=== PATIENT | male | born 1940 | race African-American/Black ===

== ENCOUNTER 2017-10-16 12:13 | Inpatient (IN) | payer MEDICARE, OTHER ==
[~2017-10-16] VITALS: Ht 167.6 cm; Wt 83.5 kg
[2017-10-16] MEDS ORDERED: SODIUM CHLORIDE 0.9% 1000ML 1,000 ML IV STA (12:44)
[2017-10-16] MEDS ORDERED: SODIUM CHLORIDE 0.9% 1000ML 500 ML IV STA (12:44)
[2017-10-16] MEDS ORDERED: FOLIC ACID 5 MG/ML VIAL IV ONE (12:45)
[2017-10-16 13:18] LABS: BASOPHILS % 0.2 % (0.0-1.0); EOSINOPHILS % 0.2 % (0.0-6.0); HEMATOCRIT 37.7 % (38.2-49.6); HEMOGLOBIN 12.4 g/dL (14.0-18.0); LYMPHOCYTES # (AUTO) 1.1 (1.0-3.2); MEAN CORPUSCULAR HEMOGLOBIN 29.4 pg (28-32); MEAN CORPUSCULAR HGB CONC 32.9 g/dL (31-35); MEAN CORPUSCULAR VOLUME 89.3 fL (81-99); MONOCYTES % 7.3 % (4.4-11.3); NEUTROPHILS # (AUTO) 11.8 (2.1-6.9); NEUTROPHILS % 83.5 % (38.7-80.0); PLATELET COUNT 173 x10e3/uL (140-360); RED BLOOD COUNT 4.22 x10e6/uL (4.3-5.7); RED CELL DISTRIBUTION WIDTH 15.6 % (11.7-14.4)
[2017-10-16 13:29] LABS: INR 1.3; PROTHROMBIN TIME 15.2 seconds (11.9-14.5)
[2017-10-16 13:30] LABS: PARTIAL THROMBOPLASTIN TIME 34.9 seconds (23.8-35.5)
[2017-10-16] MEDS ORDERED: DEXTROSE 50% SYRINGE 50 ML IV PRN (13:30)
[2017-10-16] MEDS ORDERED: ONDANSETRON HCL INJ 2 MG/ML VIAL IV PRN (13:30)
[2017-10-16] MEDS ORDERED: FAMOTIDINE 20 MG/2 ML VIAL IV SCH (13:30)
--- NOTE | 2017-10-16 13:34 | Diagnostic Imaging Report ---
PROCEDURE: A single AP view of the chest. COMPARISON: None available. INDICATIONS: WEAKNESS, LOSING BALANCE FINDINGS: Lines/tubes: None. Lungs: Limited by body habitus and low lung volumes. No definite focal consolidation. Mild left basilar subsegmental atelectasis. Pleura: There is no significant pleural effusion or pneumothorax. Heart and mediastinum: The heart and the mediastinum are unremarkable. Bones: No acute bony abnormality. Right humeral head anchor screw. IMPRESSION: Limited study as above. No definite focal consolidation. Mild left basilar subsegmental atelectasis. Dictated by: Jeffrey Pelaez M.D. on 10/16/2017 at 13:34 Electronically approved by: Jeffrey Pelaez M.D. on 10/16/2017 at 13:34
[2017-10-16 13:37] LABS: ALBUMIN/GLOBULIN RATIO 0.6 (0.8-2.0); ANION GAP 17.6 mmol/L (8-16); CREATININE, SERUM 2.59 mg/dL (0.72-1.25); MAGNESIUM 2.3 MG/DL (1.3-2.1); POTASSIUM 4.6 mmol/L (3.5-5.1)
[2017-10-16 13:54] LABS: CREATINE KINASE MB 0.5 ng/mL (0-5.0)
[2017-10-16 13:56] LABS: THYROID STIMULATING HORMONE 1.532 uIU/mL (0.350-4.940)
--- NOTE | 2017-10-16 14:30 | Diagnostic Imaging Report ---
Exam: Head CT without contrast History: Left-sided weakness Comparison studies: None Technique: Axial images were obtained from the skull base to the vertex. Coronal and sagittal images reconstructed from the axial data. Intravenous contrast: None Findings: Scalp: No abnormalities. Bones: No fractures, blastic or lytic lesions. Brain sulci: Mild to moderately prominent. Ventricles: Moderate compensatory dilatation. No hydrocephalus. Extra-axial spaces: No masses, no fluid collection. Parenchyma: No masses, acute hemorrhage, acute or chronic vascular insults. A few scattered and mildly confluent hypodensities in the supratentorial white matter are nonspecific but most compatible with chronic small vessel ischemic changes. Sellar/suprasellar region: No abnormalities. Craniocervical junction: Patent foramen magnum. No Chiari one malformation. Incidental findings: Atherosclerotic calcifications in the carotid siphons. IMPRESSION: 1. No acute intracranial abnormalities. Specifically, no mass, acute hemorrhage or acute cortical vascular insults. 2. Moderate generalized volume loss. 3. Moderate chronic microvascular ischemic changes. Signed by: Dr. Angelo Grier M.D. on 10/16/2017 2:26 PM
--- NOTE | 2017-10-16 14:43 | Diagnostic Imaging Report ---
Exam: Brain MRI without IV contrast History: Rule out CVA Comparison studies: Head CT of 10/16/2017 Technique: Sagittal and axial T2, axial and coronal T2 flair and axial T1, T2*GRE and DWI.. Intravenous contrast: None Findings: Scalp: Normal in signal . No masses . Bone marrow: Normal in signal intensity. Brain sulci: Mild to moderately prominent. Ventricles: Moderate compensatory dilatation. No hydrocephalus. Extra axial spaces: No mass, no fluid collection Parenchyma: New mass, acute hemorrhage or acute ischemia. Confluent T2 FLAIR hyperintense signal changes in the supratentorial white matter and T2 hyperintense signal changes in the tere are nonspecific but most compatible with chronic small vessel ischemic changes. Suprasellar region: No abnormalities. Craniocervical junction: Patent foramen magnum. No Chiari malformation . Vessels: Normal flow-voids in the arteries and sinuses. IMPRESSION: 1. No acute abnormalities. Specifically, no acute ischemia. 2. Moderate generalized volume loss. 3. Moderate chronic microvascular ischemic changes. Signed by: Dr. Angelo Grier M.D. on 10/16/2017 2:39 PM
--- OUTSIDE RECORDS SUMMARY | 2017-10-16 15:33 | XMS REPORT ---
Author Author [facility] Address Unknown Phone Unavailable Care Team Providers Care Daycare Assistant Name Role Phone IZABELLA FAM Unavailable Unavailable Problems This patient has no known problems. Allergies, Adverse Reactions, Alerts This patient has no known allergies or adverse reactions. Medications This patient has no known medications. Results Test Description Test Time Test Comments Text Results Atomic Results Result Comments CHEST SINGLE (PORTABLE) [address] [address] Patient Name: LEEANNE MONTEJO MR #: [id number] : 1940 Age/Sex: 77/M Req #: [id number] Adm Physician: Ordered by: CRISTEL SCHNEIDER, IZABELLA SCHNEIDER Report #: [id number] Location: ER Room/Bed: Procedure: [id number] DX/CHEST SINGLE (PORTABLE) Exam Date: 10/16/17 Exam Time: 1314 REPORT STATUS: Signed PROCEDURE: A single AP view of the chest. COMPARISON: None available. INDICATIONS: WEAKNESS, LOSING BALANCE FINDINGS: Lines/tubes: None. Lungs: Limited by body habitus and low lung volumes. No definite focal consolidation. Mild left basilar subsegmental atelectasis. Pleura : There is no significant pleural effusion or pneumothorax. Heart and mediastinum: The heart and the mediastinum are unremarkable. Bones: No acute bony abnormality. Right humeral head anchor screw. IMPRESSION: Limited study as above. No definite focal consolidation. Mild left basilar subsegmental atelectasis. Dictated by: Jeffrey Garcia M.D. on 2017 at 13:34 Electronically approved by: Jeffrey Garcia M.D. on 2017 at 13:34 Dictated By: JEFFREY GARCIA MD 1334 Transcribed By: VERONICA on 10/16/17 1334 COPY TO: IZABELLA FAM CT BRAIN WO [place] [address] Patient Name: LEEANNE MONTEJO MR #: [id number] : 1940 Age/Sex: 77/M Req #: [id number] Adm Physician: Ordered by: IZABELLA FAM MD, MD Report #: [id number] Location: ER Room/Bed: Procedure: [id number] CT/CT BRAIN WO Exam Date: 10/16/17 Exam Time: 1300 REPORT STATUS: Signed Exam: Head CT without contrast History: Left- sided weakness Comparison studies: None Technique: Axial images were obtained from the skull base to the vertex. Coronal and sagittal images reconstructed from the axial data. Intravenous contrast: None Findings: Scalp: No abnormalities. Bones: No fractures, blastic or lytic lesions. Brain sulci: Mild to moderately prominent. Ventricles: Moderate compensatory dilatation. No hydrocephalus. Extra-axial spaces: No masses, no fluid collection. Parenchyma: No masses, acute hemorrhage, acute or chronic vascular insults. A few scattered and mildly confluent hypodensities in the supratentorial white matter are nonspecific but most compatible with chronic small vessel ischemic changes. Sellar/ suprasellar region: No abnormalities. Craniocervical junction: Patent foramen magnum. No Chiari one malformation. Incidental findings: Atherosclerotic calcifications in the carotid siphons. IMPRESSION: 1. No acute intracranial abnormalities. Specifically, no mass, acute hemorrhage or acute cortical vascular insults. 2. Moderate generalized volume loss. 3. Moderate chronic microvascular ischemic changes. Signed by: Dr. Bakari Grier M.D. on 10/16/2017 2:26 PM Dictated By: BAKARI GRIER MD 25 Transcribed By: MARCELLA on 10/16/171425 COPY TO: IZABELLA FAM MRI BRAIN WO [place] [address] Patient Name: LEEANNE MONTEJO MR #: [id number] : 1940 Age/Sex: 77/M Req #: [id number] Adm Physician: Ordered by: IZABELLA FAM MD, MD Report #: [id number] Location: ER Room/Bed: Procedure: [id number] MRI/MRI BRAIN WO Exam Date: Exam Time: REPORT STATUS: Signed Exam: Brain MRI without IV contrast History: Rule out CVA Comparison studies: Head CT of 10/16/2017 Technique: Sagittal and axial T2, axial and coronal T2 flair and axial T1, T2*GRE and DWI.. Intravenous contrast: None Findings: Scalp: Normal in signal . No masses . Bone marrow: Normal in signal intensity. Brain sulci: Mild to moderately prominent. Ventricles: Moderate compensatory dilatation. No hydrocephalus. Extra axial spaces: No mass, no fluid collection Parenchyma: New mass, acute hemorrhage or acute ischemia. Confluent T2 FLAIR hyperintense signal changes in the supratentorial white matter and T2 hyperintense signal changes in the tere are nonspecific but most compatible with chronic small vessel ischemic changes. Suprasellar region: No abnormalities. Craniocervical junction: Patent foramen magnum. No Chiari malformation . Vessels: Normal flow-voids in the arteries and sinuses. IMPRESSION: 1. No acute abnormalities. Specifically, no acute ischemia. 2. Moderate generalized volume loss. 3. Moderate chronic microvascular ischemic changes. Signed by: Dr. Bakari Grier M.D. on 2017 2:39 PM Dictated By: BAKARI GRIER MD 1430 Transcribed By: MARCELLA on 10/16/17 1439 COPY TO: IZABELLA FAM
[2017-10-16] MEDS: INSULIN REGULAR, HUMAN 100 UNIT/1 ML 3ML VIAL SQ SCH ×2 (16:30→21:04)
[2017-10-16 16:43] VITALS: BP 154/74
[2017-10-16] MEDS ORDERED: CLOPIDOGREL75 MG PO (18:06)
[2017-10-16] MEDS ORDERED: SIMVASTATIN20 MG PO (18:06)
[2017-10-16] MEDS ORDERED: AMLODIPINE BESY10 MG PO (18:06)
[2017-10-16] MEDS ORDERED: ASPIRIN325 MG PO (18:06)
[2017-10-16] MEDS ORDERED: METOPROLOL TART50 MG PO (18:06)
[2017-10-16 18:21] VITALS: BP 127/70
[2017-10-16 20:00] VITALS: BP 163/75
[2017-10-16 20:41] VITALS: BP 163/75
[2017-10-16] MEDS: AMLODIPINE BESYLATE 10 MG TAB PO SCH (21:15)
[2017-10-16 21:53] LABS: CREATINE KINASE MB 0.6 ng/mL (0-5.0)
[2017-10-16] MEDS: METOPROLOL TARTRATE 50 MG TAB PO SCH (22:01)
[2017-10-16] MEDS: ACETAMINOPHEN 325 MG TAB PO PRN (22:02)
[2017-10-16] MEDS ORDERED: SIMVASTATIN 20 MG TAB PO SCH (22:15)
[2017-10-17] VITALS (8 sets, daily range): BP systolic 115–157; BP diastolic 56–71
[2017-10-17 06:23] LABS: BASOPHILS % 0.3 % (0.0-1.0); EOSINOPHILS # (AUTO) 0.1 (0.0-0.4); EOSINOPHILS % 0.8 % (0.0-6.0); HEMATOCRIT 35.6 % (38.2-49.6); HEMOGLOBIN 11.8 g/dL (14.0-18.0); LYMPHOCYTES # (AUTO) 1.3 (1.0-3.2); MEAN CORPUSCULAR HEMOGLOBIN 29.4 pg (28-32); MEAN CORPUSCULAR HGB CONC 33.1 g/dL (31-35); MEAN CORPUSCULAR VOLUME 88.6 fL (81-99); MONOCYTES # (AUTO) 0.9 (0.2-0.8); MONOCYTES % 8.2 % (4.4-11.3); NEUTROPHILS # (AUTO) 9.1 (2.1-6.9); NEUTROPHILS % 79.2 % (38.7-80.0); PLATELET COUNT 158 x10e3/uL (140-360); RED BLOOD COUNT 4.02 x10e6/uL (4.3-5.7); RED CELL DISTRIBUTION WIDTH 15.4 % (11.7-14.4)
[2017-10-17 06:47] LABS: ALBUMIN 2.5 g/dL (3.5-5.0); ALBUMIN/GLOBULIN RATIO 0.5 (0.8-2.0); CALCIUM 9.4 mg/dL (8.4-10.2); CHOL/HDL RATIO 4.3 (3.9-4.7); CREATININE, SERUM 2.35 mg/dL (0.72-1.25); MAGNESIUM 2.1 MG/DL (1.3-2.1); PHOSPHORUS 2.9 MG/DL (2.3-4.7)
[2017-10-17 07:07] LABS: CREATINE KINASE MB 0.4 ng/mL (0-5.0)
[2017-10-17] MEDS: ACETAMINOPHEN 325 MG TAB PO PRN ×2 (07:11→20:50)
[2017-10-17] MEDS: CLOPIDOGREL BISULFATE 75 MG TAB PO SCH (08:25)
[2017-10-17] MEDS: ASPIRIN 325 MG TAB PO SCH (08:25)
[2017-10-17] MEDS: METOPROLOL TARTRATE 50 MG TAB PO SCH (08:25)
[2017-10-17] MEDS: INSULIN REGULAR, HUMAN 100 UNIT/1 ML 3ML VIAL SQ SCH ×4 (08:25→20:46)
[2017-10-17] MEDS: AMLODIPINE BESYLATE 10 MG TAB PO SCH (08:25)
[2017-10-17] MEDS ORDERED: ASPIRIN 81 MG ENTERIC COATED PO SCH (09:00)
[2017-10-17] MEDS: FAMOTIDINE 10MG/ML 20ML VIAL IV SCH ×2 (09:46→20:42)
--- NOTE | 2017-10-17 13:07 | Consultation ---
DATE OF CONSULTATION: CARDIOLOGY CONSULTATION Patient seen in the room this morning. I discussed with him. Patient came with some dizziness, weakness, and also found to have fever at this time. The patient known to me for a few years. Patient's diagnoses are: 1. Fever and etiology probably urinary tract infection. However, the Internal Medicine working on the etiology of the fever and treatment. 2. Angina pectoris with coronary artery disease. 3. Transient ischemic attack. 4. Type 2 diabetes mellitus. 5. Hypertension. 6. History of status post coronary stent placement done by me maybe 8 to 9 years ago. 7. Renal dysfunction. Patient's clinical examination does not reveal any congestive heart failure. EKG does not show acute st t changes changes. One troponin is negative. At this time, brain scan is negative, the MRI scan negative and no acute CVA. Patient with old changes, old age changes are noted in the brain scan and MRI. Chest x-ray is also found to be within normal limits at this time. I ordered an echocardiogram and a Lexiscan stress test for Thursday. In meantime, is febrile, will be addressed by the internal medicine physician. I discussed with the family members. At this time, probably he will be staying in the hospital for a couple of days before he feels better. Because the patient is complaining of chest pain and also has dizziness, patient will have above tests ordered. At this time, carotid duplex scan and echocardiogram not performed yet. I will continue to follow the patient, continue all his present medications including amlodipine, aspirin, Plavix, metoprolol, simvastatin. Thank you again for this consultation. Job#: [id number] EV SUE
[2017-10-17] MEDS ORDERED: GLIMEPIRIDE2 MG PO (14:17)
--- NOTE | 2017-10-17 14:24 | Consultation ---
DATE OF CONSULTATION: October 17, 2017 NEUROLOGY CONSULT NOTE HISTORY OF PRESENT ILLNESS: Mr. Luther is a 77-year-old right-hand dominant man with past medical history significant for hypertension, hyperlipidemia, diabetes mellitus, coronary artery disease status post myocardial infarction with stent placement, who presented to the emergency center at [facility] on October 16, 2017, with transient neurological deficits. On the afternoon of October 16, 2017, the patient was at home when he experienced the sudden onset of weakness affecting the right arm, more so than the right leg. In addition to this weakness, the patient reports numbness affecting the 3rd through 5th digits of the right hand, imbalance and gait impairment. As stated above, the symptoms began suddenly, lasted for minutes, and then spontaneously resolved. Shortly after symptom onset, Mr. Luther called his primary care physician, Dr. Tico Lacey, regarding these symptoms. Dr. Lacey advised the patient to proceed to the emergency center at [facility] for further evaluation. Upon arrival at the emergency center, the patient's symptoms had more or less resolved. A CT of the brain without contrast was performed and did not show evidence of recent large territorial ischemia, hemorrhage, mass, or mass effect. Mr. Luther was admitted to [facility] for further evaluation and treatment. REVIEW OF SYSTEMS: Poor concentration, transient weakness of the right arm and leg, transient numbness of the 3rd through 5th digits of the right hand, and transient impairment of balance and gait. Other than that, a 12-point review of systems was negative. PAST MEDICAL HISTORY: Hypertension, hyperlipidemia, diabetes mellitus, coronary artery disease status post myocardial infarction, osteoarthritis, intermittent GERD, and prostate cancer. PAST SURGICAL HISTORY: Cardiac stent placement, laser surgery on both eyes. PAST HOSPITALIZATIONS: Dislocation of the right shoulder, surgeries/procedures as listed above. FAMILY HISTORY: The patient's paternal and maternal grandparents, his father and his mother are all . Their past medical history is unknown. Mr. Luther has 3 brothers and 3 sisters, all of whom have hypertension and diabetes. He has 1 daughter who has hypertension. SOCIAL HISTORY: The patient completed the 6th grade in [place], which is roughly equivalent to the 10th grade in the [place] (per the patient). 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 Mr. Luther is . He does not endorse current or prior tobacco or recreational drug use. He does endorse occasional alcohol use. HOME MEDICATIONS 1. Aspirin 325 mg by mouth daily. 2. Plavix 75 mg by mouth daily. 3. Amlodipine 10 mg by mouth daily. 4. Metoprolol 50 mg by mouth daily. 5. Simvastatin 20 mg by mouth at bedtime daily. ALLERGIES: NO KNOWN DRUG ALLERGIES. NO KNOWN FOOD ALLERGIES. NO KNOWN ALLERGY TO LATEX. NO KNOWN ALLERGIES TO CONTRAST MATERIALS. PHYSICAL EXAMINATION VITAL SIGNS: Height 66 inches, weight 201 pounds, BMI 32.4 kg per meter squared. Blood pressure 157/71 mmHg, pulse 79 beats per minute, respiratory rate 19 breaths per minute, oxygen saturation 97% on room air. GENERAL: The patient is awake and alert. Does not appear distressed. Obese. HEENT: Normocephalic and atraumatic. Pupils equal, round and reactive to light. Moist mucous membranes. NECK: Supple. No appreciable thyromegaly. No appreciable carotid bruits. CARDIOVASCULAR: S1 and S2. Regular rate and rhythm. No murmurs, rubs or gallops. RESPIRATORY: Clear to auscultation bilaterally. No wheezes, rhonchi or rales. EXTREMITIES: The skin is warm and dry. No clubbing, cyanosis or edema. The posterior tibial and dorsalis pedis pulses are 1+ and symmetric. SKIN: No rashes or lesions. NEUROLOGIC: Memory/attention: The patient is awake and alert, and oriented to person, place, time, and situation. CRANIAL NERVES: Cranial nerve I: Not tested. Cranial nerves II, III, IV, and : Pupils are equal and round. React briskly to light (from 4 mm to 2 mm). Extraocular movements intact. No nystagmus. Cranial nerve V: Sensation to light touch and pinprick is intact in the bilateral V1-V3 distributions, except as follows: Decrease to pinprick in the V3 distribution. Strength of the temporalis and masseter muscles are within normal limits. Cranial nerve VII: The face is symmetric as well as facial movements. Strength is within normal limits. Cranial nerve VIII: Hearing is intact to finger rub bilaterally. Cranial nerve IX and X: Soft palate elevates equally and symmetrically. Cranial nerve XI: Normal strength of the bilateral sternocleidomastoid and trapezius muscles. Cranial nerve XII: The tongue protrudes in the midline and moves symmetrically from side to side. STRENGTH: Bulk is normal and strength is 5/5 in the bilateral deltoids, biceps, triceps, wrist flexors and extensors, finger flexors and extensors, intrinsic hand muscles, hip flexors, knee flexors and extensors, ankle dorsiflex and plantar flexion, and intrinsic foot muscles. Tone is normal. DTRS: Deep tendon reflexes are 1+ and symmetric at the triceps, biceps, brachioradialis, patellas, and Achilles. Plantar responses are flexor bilaterally. Absent clonus. SENSATION: Intact to light touch and pinprick in both arms and both legs except as follows: Decrease to light touch over the right forearm, decrease to pinprick over the left foreleg. CEREBELLAR: Isxmjr-[id number]-[id number] and heel-marcus movements are intact without dysmetria or other impairment. GAIT: Deferred. SPEECH: Spontaneous speech is normal without appreciable dysarthria or aphasia. Repetition is intact. INVOLUNTARY MOVEMENTS: None. PRONATOR DRIFT: None. LABORATORY DATA: Sodium 135, potassium 5, chloride 102, carbon dioxide 26, anion gap 12, BUN 31, creatinine 2.35, estimated GFR 33, BUN to creatinine ratio 13. Serum glucose 153, 180, 234. Calcium 9.4, phosphorus 2.9, magnesium 2.1. Total bilirubin 0.7, AST 38, ALT 54, alkaline phosphatase 67, total protein 7.1, albumin 2.5, globulin 4.6, albumin to globulin ratio 0.5. Creatinine kinase 86, 68. CK-M 0.6, 0.4. Troponin I 0.006, 0.004. Total cholesterol 136, triglycerides 105, LDL 83, HDL 32. CBC with differential and platelets reveals a white blood cell count of 11.51 with 79.2% neutrophils, 11% lymphocytes, 8.2% monocytes, 0.8% eosinophils, 0.3% basophils. Hemoglobin and hematocrit are 11.8 and 35.6 respectively. The platelet count is 158,000. PT 15.2, INR 1.3 and PTT 34.9. DIAGNOSTIC STUDIES: EKG on October 16, 2017, normal sinus rhythm at 70 beats per minute. Bilateral carotid artery ultrasound on October 16, 2017, there is possible evidence of significant carotid stenosis of the right common carotid artery and distal right internal carotid artery. There is tortuosity of the right common carotid artery. There is possible evidence of significant carotid stenosis of the left common carotid artery and proximal, mid and distal portions of the left internal carotid artery. Tortuosity of the left internal carotid artery is noted. Flow is antegrade in the bilateral vertebral arteries. CT of the brain without contrast on October 16, 2017, on my review, there is no evidence of recent large territorial ischemia, hemorrhage, mass, or mass effect. MRI of the brain without contrast on October 16, 2017, on my review, there is no evidence of recent large territorial ischemia or hemorrhage. There is diffuse volume loss, appropriate for age. There are scattered nonspecific T2/flair hyper-intensities compatible with moderate chronic small vessel ischemic disease. ASSESSMENT AND PLAN Mr. Luther is a 77-year-old right-hand dominant man with multiple vascular risk factors presenting with a transient ischemic attack affecting the left middle cerebral artery distribution, probably subcortical. The patient's neurological examination is nonfocal with the exception of some sensory deficits in a non-anatomical distribution. Mr. Luther's laboratory data and diagnostic studies have been reviewed and are documented above. Mr. Luther's recent transient ischemic attack is due to the presence of multiple vascular risk factors as detailed in the history of present illness and past medical history. Aggressive treatment of these multiple vascular risk factors is necessary to prevent the occurrence of a future stroke or heart attack. RECOMMENDATIONS: Are as follows: 1. An echocardiogram has been ordered and is pending. Otherwise, the majority of the diagnostic studies necessary for a full stroke evaluation have been ordered and completed. The final reports of these studies will be reviewed once available. 2. Mr. Luther is taking both aspirin 325 mg by mouth daily and Plavix 75 mg by mouth daily at home as recommended by his trimmer hand. Continue treatment with dual antiplatelet medications will be discussed with his primary attending, Dr. Tico Lacey, and if possible his trimmer hand. It is my recommendation treatment with aspirin be discontinued as the literature demonstrates increased risk of bleeding events with dual antiplatelet therapy. 3. Allow permissive hypertension pending the final result of the carotid Dopplers. 4. Increase simvastatin to 40 mg by mouth at bedtime daily to achieve the patient's cholesterol goals of a total cholesterol less than 200 with an LDL of less than 70. 5. Tight glycemic control. A hemoglobin A1c is pending. 6. The patient is receiving Pepcid 20 mg IV every 12 hours for GI prophylaxis. 7. Heparin 5000 units subcutaneously every 8 hours for DVT prophylaxis will be prescribed. 8. A physical therapy consultation has been placed. 9. Defer treatment of the remaining medical comorbidities to the primary and other services. Thank you for this consultation. I will continue to follow this patient while he remains in the hospital. TIME SPENT: 70 minutes. Job#: [id number] ALANNA ROGERS
[2017-10-17] MEDS: HEPARIN SOD (PORCINE) 5,000 UNIT/ML VIAL SC SCH ×2 (14:33→20:46)
[2017-10-17 16:42] LABS: BILIRUBIN,URINE NEGATIVE (NEGATIVE); KETONES,URINE NEGATIVE (NEGATIVE); LEUKOCYTE ESTERASE ,URINE 1+ (NEGATIVE); URINE UROBILINOGEN 0.2 mg/dL (0.2 - 1)
[2017-10-17 16:44] LABS: CLARITY,URINE HAZY (CLEAR); COLOR,URINE YELLOW (YELLOW); NITRITE,URINE POSITIVE (NEGATIVE); PROTEIN,URINE DIPSTICK 1+ (NEGATIVE)
[2017-10-17 16:56] LABS: BACTERIA,URINE MANY /HPF; EPITHELIAL CELLS,URINE FEW /LPF; MUCUS,URINE MODERATE (RARE)
[2017-10-17] MEDS: SIMVASTATIN 40 MG TAB PO SCH (20:42)
[2017-10-17] MEDS ORDERED: SIMVASTATIN 20 MG TAB PO SCH (21:00)
[2017-10-18] VITALS (8 sets, daily range): BP systolic 126–164; BP diastolic 60–70
[2017-10-18] MEDS: HEPARIN SOD (PORCINE) 5,000 UNIT/ML VIAL SC SCH ×3 (05:20→20:43)
[2017-10-18 06:57] LABS: BASOPHILS % 0.4 % (0.0-1.0); EOSINOPHILS # (AUTO) 0.2 (0.0-0.4); EOSINOPHILS % 1.7 % (0.0-6.0); HEMATOCRIT 37.5 % (38.2-49.6); HEMOGLOBIN 12.2 g/dL (14.0-18.0); LYMPHOCYTES # (AUTO) 1.8 (1.0-3.2); LYMPHOCYTES % 15.9 % (18.0-39.1); MEAN CORPUSCULAR HGB CONC 32.5 g/dL (31-35); MEAN CORPUSCULAR VOLUME 89.3 fL (81-99); MONOCYTES # (AUTO) 1.2 (0.2-0.8); MONOCYTES % 10.6 % (4.4-11.3); NEUTROPHILS # (AUTO) 7.8 (2.1-6.9); NEUTROPHILS % 70.5 % (38.7-80.0); PLATELET COUNT 204 x10e3/uL (140-360); RED CELL DISTRIBUTION WIDTH 15.7 % (11.7-14.4)
[2017-10-18 07:36] LABS: ALBUMIN 2.6 g/dL (3.5-5.0); ALBUMIN/GLOBULIN RATIO 0.5 (0.8-2.0); ANION GAP 15.1 mmol/L (8-16); CALCIUM 9.6 mg/dL (8.4-10.2); CREATININE, SERUM 2.34 mg/dL (0.72-1.25); POTASSIUM 4.1 mmol/L (3.5-5.1)
[2017-10-18] MEDS: INSULIN REGULAR, HUMAN 100 UNIT/1 ML 3ML VIAL SQ SCH ×4 (08:50→20:43)
[2017-10-18] MEDS: ACETAMINOPHEN 325 MG TAB PO PRN ×2 (08:55→20:35)
[2017-10-18] MEDS: METOPROLOL TARTRATE 50 MG TAB PO SCH (09:06)
[2017-10-18] MEDS: AMLODIPINE BESYLATE 10 MG TAB PO SCH (09:06)
[2017-10-18] MEDS: CLOPIDOGREL BISULFATE 75 MG TAB PO SCH (09:06)
[2017-10-18] MEDS: LEVOFLOXACIN 500 MG TAB PO SCH (09:06)
[2017-10-18] MEDS: FAMOTIDINE 10MG/ML 20ML VIAL IV SCH ×2 (09:06→20:35)
[2017-10-18] MEDS: ASPIRIN 325 MG TAB PO SCH (09:06)
--- NOTE | 2017-10-18 18:13 | Progress Note ---
DATE: October 18, 2017 CARDIOLOGY PROGRESS NOTE Patient seen in the room. Discussed with patient. DIAGNOSES 1. Transient ischemic attack. 2. Coronary artery disease. 3. Hypertension. 4. Type 2 diabetes mellitus. 5. Status post stent placement. Patient came with some weakness and patient also had some fever and worked up and appears to have urinary tract infection; however, at this time that has been taken care by primary physician. White blood cell count is normal at this time around 12,500 per cubic mm and the patient has no fever. Cardiac dueñas, patient is stable. Troponin is negative. Left ventricular ejection fraction was 66% without any significant wall abnormalities. 6. Mitral regurgitation. Neurologist had seen the patient, diagnosed with transient ischemic attacks. Carotid duplex scan is ordered today and I will review them tomorrow. Tomorrow, she will get a nuclear stress and carotid duplex scan. Further evaluation that will be necessary will be done tomorrow. Job#: [id number] TERRY
[2017-10-18] MEDS: SIMVASTATIN 40 MG TAB PO SCH (20:35)
[2017-10-18] MEDS: INSULIN DETEMIR 100 UNIT/ML PEN SQ SCH (20:43)
[2017-10-19] VITALS (7 sets, daily range): BP systolic 131–156; BP diastolic 65–83
[2017-10-19] MEDS: ACETAMINOPHEN 325 MG TAB PO PRN (03:07)
[2017-10-19] MEDS: HEPARIN SOD (PORCINE) 5,000 UNIT/ML VIAL SC SCH ×3 (05:15→23:57)
[2017-10-19] MEDS: METOPROLOL TARTRATE 50 MG TAB PO SCH ×2 (08:52→12:57)
[2017-10-19] MEDS: LEVOFLOXACIN 500 MG TAB PO SCH (09:04)
[2017-10-19] MEDS: CLOPIDOGREL BISULFATE 75 MG TAB PO SCH (09:04)
[2017-10-19] MEDS: FAMOTIDINE 10MG/ML 20ML VIAL IV SCH ×2 (09:04→20:53)
[2017-10-19] MEDS: ASPIRIN 325 MG TAB PO SCH (09:04)
[2017-10-19] MEDS: INSULIN REGULAR, HUMAN 100 UNIT/1 ML 3ML VIAL SQ SCH ×4 (09:16→20:53)
[2017-10-19] MEDS: AMLODIPINE BESYLATE 10 MG TAB PO SCH (12:58)
--- NOTE | 2017-10-19 13:26 | Progress Note ---
DATE: CARDIOLOGY PROGRESS NOTE Patient was seen in the nuclear lab and in the room. The patient at this time has no chest pain. The patient is doing very well. The patient is not confused like when he came to the hospital. The patient does not have congestive heart failure. Echo ejection fraction is about 50% to 55% with mitral regurgitation. The patient has mild AR, too. At this time, the patient is stable cardiac-dueñas. He had a coronary stent put in 10 years ago. He underwent Lexiscan. There is no need for him to wait until the Lexiscan results are available. However, the patient can be discharged from a cardiac point of view. I will leave the decision with the neurologist and primary physician for further workup. Cardiac-dueñas, there is no other cardiac evaluation necessary. I will follow the patient as an outpatient. The patient appears to have had a TIA. The patient has had a neurological consultation. Job#: [id number]
[2017-10-19] MEDS: SIMVASTATIN 40 MG TAB PO SCH (23:55)
[2017-10-20] VITALS: BP 141/62
[2017-10-20] MEDS: INSULIN DETEMIR 100 UNIT/ML PEN SQ SCH (00:22)
[2017-10-20 04:00] VITALS: BP 139/64
[2017-10-20] MEDS: HEPARIN SOD (PORCINE) 5,000 UNIT/ML VIAL SC SCH (05:49)
[2017-10-20 08:30] VITALS: BP 159/74
[2017-10-20] MEDS: ASPIRIN 325 MG TAB PO SCH (08:44)
[2017-10-20] MEDS: LEVOFLOXACIN 500 MG TAB PO SCH (08:44)
[2017-10-20] MEDS: FAMOTIDINE 10MG/ML 20ML VIAL IV SCH (08:44)
[2017-10-20] MEDS: CLOPIDOGREL BISULFATE 75 MG TAB PO SCH (08:45)
[2017-10-20] MEDS: ACETAMINOPHEN 325 MG TAB PO PRN (08:45)
[2017-10-20] MEDS: AMLODIPINE BESYLATE 10 MG TAB PO SCH (08:45)
[2017-10-20] MEDS: METOPROLOL TARTRATE 50 MG TAB PO SCH (08:45)
[2017-10-20] MEDS: INSULIN REGULAR, HUMAN 100 UNIT/1 ML 3ML VIAL SQ SCH (08:46)
[2017-10-20 10:26] VITALS: BP 159/74
[2017-10-20 12:10] VITALS: BP 158/76
[2017-10-20] MEDS ORDERED: FAMOTIDINE 20 MG TAB PO SCH (16:30)
--- NOTE | 2017-10-22 11:27 | Cardiology Report ---
DATE OF STUDY: October 16, 2017 DOPPLER SCAN OF THE CAROTIDS Left carotid artery shows mild intimal thickening and plaquing with velocity of 1.85 meters per second in the left internal carotid artery and 1.96 meters per second in the left common carotid artery. Left vertebral flow appears antegrade. Right carotid artery had velocity of 1.35 meters per second involving the distal right internal carotid artery and 1.65 meters per second involving the right common carotid artery. Right vertebral flow appears to be antegrade. CONCLUSIONS 1. 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 2. Mild to moderate stenosis involving the right and left internal carotid arteries with velocities of 1.35 meters per second involving the right internal carotid artery and 1.85 meters per second involving the left internal carotid artery consistent with stenosis in the range of 50% to 70%. 3. Vertebral flow appears to be in a normal direction bilaterally. Job#: [id number] cc:IZABELLA FAM MD
== END 2017-10-20 12:22 | disposition home or self-care (01) | DRG 69 ==
LOC: ER 12:13 → MED/SURG 15:30 → IMCU 10-17 08:26 → OBSVTOIN 10-20 11:33
PROVIDERS: ADMIT Internal Medicine; ATTEND Internal Medicine
DX: G45.9 Transient cerebral ischemic attack, unspecified (principal); E11.22 Type 2 diabetes mellitus with diabetic chronic kidney disease; E11.65 Type 2 diabetes mellitus with hyperglycemia; N39.0 Urinary tract infection, site not specified; N18.3 Chronic kidney disease, stage 3 (moderate); E78.5 Hyperlipidemia, unspecified; I25.2 Old myocardial infarction; Z95.1 Presence of aortocoronary bypass graft; I25.119 Atherosclerotic heart disease of native coronary artery with unspecified angina pectoris; I12.9 Hypertensive chronic kidney disease with stage 1 through stage 4 chronic kidney disease, or unspecified chronic kidney disease; Z79.82 Long term (current) use of aspirin; Z79.01 Long term (current) use of anticoagulants; Z79.4 Long term (current) use of insulin
CPT/HCPCS: 36415; 70450; 70551; 71045; 78452; 80053; 80061; 81001; 82550; 82553; 82948; 83036; 83690; 83735; 83880; 84100; 84443; 84484; 85025; 85610; 85730; 87086; 87186; 93005; 93017; 93306; 93880; 99284; A9502; G0378; J1644; J7030

== ENCOUNTER 2018-01-23 22:19 | Inpatient (IN) | payer MEDICARE, OTHER ==
[~2018-01-23] VITALS: Ht 167.6 cm; Wt 93.9 kg
[~2018-01-23 22:19] MED LIST: AMLODIPINE BESY10 MG PO; ASPIRIN325 MG PO; CLOPIDOGREL75 MG PO; GLIMEPIRIDE2 MG PO; METOPROLOL TART50 MG PO; SIMVASTATIN20 MG PO
[2018-01-23] MEDS ORDERED: PANTOPRAZOLE 40 MG 10ML VIAL IV STA (22:54)
[2018-01-23] MEDS ORDERED: SODIUM CHLORIDE 0.9% 1000ML 1,000 ML IV STA (22:54)
[2018-01-23] MEDS ORDERED: SODIUM CHLORIDE 0.9% 250ML 250 ML IV ONE (23:00)
[2018-01-23 23:18] LABS: BASOPHILS # (AUTO) 0.1 (0.0-0.1); BASOPHILS % 0.3 % (0.0-1.0); EOSINOPHILS # (AUTO) 0.1 (0.0-0.4); EOSINOPHILS % 0.4 % (0.0-6.0); LYMPHOCYTES # (AUTO) 2.4 (1.0-3.2); LYMPHOCYTES % 13.1 % (18.0-39.1); MEAN CORPUSCULAR HEMOGLOBIN 29.7 pg (28-32); MEAN CORPUSCULAR HGB CONC 30.8 g/dL (31-35); MEAN CORPUSCULAR VOLUME 96.7 fL (81-99); MONOCYTES # (AUTO) 0.9 (0.2-0.8); MONOCYTES % 4.9 % (4.4-11.3); NEUTROPHILS # (AUTO) 14.3 (2.1-6.9); PLATELET COUNT 142 x10e3/uL (140-360); RED BLOOD COUNT 2.69 x10e6/uL (4.3-5.7); RED CELL DISTRIBUTION WIDTH 18.2 % (11.7-14.4)
[2018-01-23 23:21] LABS: INR 1.2; PARTIAL THROMBOPLASTIN TIME 23.5 seconds (23.8-35.5); PROTHROMBIN TIME 14.3 seconds (11.9-14.5)
[2018-01-23 23:32] LABS: ALANINE AMINOTRANSFERASE 21 IU/L (0-55); ALBUMIN 3.1 g/dL (3.5-5.0); ALBUMIN/GLOBULIN RATIO 1.2 (0.8-2.0); ALKALINE PHOSPHATASE 28 IU/L (40-150); AMYLASE 95 U/L (25-125); ANION GAP 13.6 mmol/L (8-16); BLOOD UREA NITROGEN 104 mg/dL (7-26); BUN/CREATININE RATIO 42 (6-25); CALCIUM 9.1 mg/dL (8.4-10.2); CARBON DIOXIDE 20 mmol/L (22-29); CHLORIDE 105 mmol/L (98-107); CREATINE KINASE 53 IU/L (30-200); CREATININE, SERUM 2.47 mg/dL (0.72-1.25); EST GLOMERULAR FILTRATION RATE 31 ML/MIN (60-); GLUCOSE 289 mg/dL (74-118); LIPASE 75 U/L (8-78); MAGNESIUM 1.9 MG/DL (1.3-2.1); POTASSIUM 5.6 mmol/L (3.5-5.1); SODIUM 133 mmol/L (136-145)
[2018-01-23 23:47] LABS: CLARITY,URINE CLEAR (CLEAR); COLOR,URINE YELLOW (YELLOW); KETONES,URINE NEGATIVE (NEGATIVE); LEUKOCYTE ESTERASE ,URINE NEGATIVE (NEGATIVE); NITRITE,URINE NEGATIVE (NEGATIVE); PROTEIN,URINE DIPSTICK NEGATIVE (NEGATIVE)
[2018-01-23 23:48] LABS: BILIRUBIN,URINE NEGATIVE (NEGATIVE); URINE UROBILINOGEN 0.2 mg/dL (0.2 - 1)
[2018-01-23 23:55] LABS: BACTERIA,URINE RARE /HPF; RBC,URINE 0-5 /HPF (0-5)
--- NOTE | 2018-01-23 23:55 | Diagnostic Imaging Report ---
CHEST SINGLE (PORTABLE), 01/23/2018 10:54 PM Technique: CHEST SINGLE (PORTABLE) Comparison: None Clinical history: Syncope Findings: See Impression Impression: Note the lung apices are barely included on this portable view. 1. Normal cardiomediastinal silhouette for portable technique. 2. No consolidation or edema. 3. No pleural effusion or pneumothorax. Signed by: Dr Myrna Nettles MD on 01/23/2018 11:52 PM
[2018-01-23 23:56] LABS: EPITHELIAL CELLS,URINE RARE /LPF
[2018-01-23] MEDS ORDERED: METOPROLOL TAR100 MG PO (23:59)
[2018-01-24] VITALS (40 sets, daily range): BP systolic 97–156; BP diastolic 55–88
[2018-01-24] MEDS ORDERED: SPIRONOLACTONE25 MG PO (00:06)
[2018-01-24] MEDS: SODIUM CHLORIDE 0.9% 1000ML 1,000 ML IV SCH ×3 (01:31→21:31)
[2018-01-24] MEDS ORDERED: DEXTROSE 50% SYRINGE 50 ML IV PRN (01:45)
[2018-01-24] MEDS ORDERED: SODIUM CHLORIDE 0.9% 500ML 500 ML ONE (02:13)
[2018-01-24] MEDS ORDERED: PANTOPRAZOLE 40 MG 10ML VIAL ONE ×2 (02:14→09:13)
[2018-01-24] MEDS ORDERED: PANTOPRAZOLE INJ 40 MG in SODIUM CHLORIDE 0.9% 50ML 50 ML IV SCH (02:15)
[2018-01-24] MEDS ORDERED: PANTOPRAZOL 40MG/SOD CHL 0.9% 50 ML IV ONE (03:37)
[2018-01-24] MEDS: INSULIN REGULAR, HUMAN 100 UNIT/1 ML 3ML VIAL SQ SCH ×5 (06:00→23:58)
[2018-01-24] MEDS: FUROSEMIDE INJ 10 MG/ML 2 ML VIAL IV PRN ×2 (06:24→10:00)
[2018-01-24 07:00] LABS: CREATINE KINASE MB 1.3 ng/mL (0-5.0)
[2018-01-24] MEDS ORDERED: PANTOPRAZOLE 40 MG 10ML VIAL IV SCH (09:00)
[2018-01-24] MEDS: PANTOPRAZOL 40MG/SOD CHL 0.9% 50 ML IV SCH ×3 (09:30→19:01)
[2018-01-24] MEDS ORDERED: SODIUM CHLORIDE 0.9% 100 ML ONE (10:14)
[2018-01-24] MEDS: PIPERACILLIN/TAZO 2.25 GM 50 ML IV SCH ×2 (11:52→18:56)
--- NOTE | 2018-01-24 12:03 | History and Physical ---
CHIEF COMPLAINT: [id number]-[id number]-[id number]-old male comes in with GI bleed. HISTORY OF PRESENTING ILLNESS: This is Mr. Osman Luther, patient with diabetes mellitus, hypertension, and hyperlipidemia, who was in usual state of health until the patient was feeling weak for the last 3 to 4 days, had 1 syncopal episode prior to this admission, and then the night the admission the patient had 1 syncopal episode and noted that he had anatoly rectal bleeding, and the patient came to emergency room, was found to have anemia of blood loss, and the patient was admitted for the same and for syncopal episode. PAST MEDICAL HISTORY: Includes coronary artery disease, history of hypertension, and history of diabetes mellitus. MEDICATIONS: Include: 1. Amlodipine 10 mg. 2. Aspirin 325 mg. 3. Clopidogrel 75 mg. 4. Metoprolol 100 mg twice a day. 5. Simvastatin 20 mg. 6. Aldactone 25 mg. PAST SURGICAL HISTORY: Includes history of having stents put in, history of right shoulder surgery, and prostate surgeries too. Patient had right shoulder repair and has had cataract surgeries in both eyes. FAMILY HISTORY: History of hypertension and diabetes in the family. REVIEW OF SYSTEMS: Negative for chest pain. Positive for some shortness of breath. No nausea, vomiting, diarrhea. Positive for hematochezia. No diplopia and no blurry vision. Positive for weakness and positive for syncopal episode. PHYSICAL EXAMINATION: GENERAL: Patient is alert and oriented x3. He is in the ICU. VITAL SIGNS: Temperature is 97.8, blood pressure is 113/62, 100% on 2 liters of nasal cannula. HEENT: Atraumatic, normocephalic. Positive for . Positive for some pallor. Patient is getting blood right now. CVS: S1 and S2. Regular rate and rhythm. ABDOMEN: Nontender, nondistended. EXTREMITIES: No clubbing, no cyanosis, no edema. LABORATORY VALUE: Initial white count was 18,000; hemoglobin of 8 and hematocrit of 26; platelet count was 142,000. Chemistries: Sodium of 133, potassium of 5.6, BUN of 104, creatinine of 2.57, and glucose of 289. Lactic acid was 23.1. Troponin was less than 0.01. MICROBIOLOGY: Urine culture is pending. IMAGING STUDIES: Chest x-ray showed no pleural effusion or pneumothorax, no consolidation or edema, normal cardiac silhouette. ASSESSMENT: 1. Leukocytosis. 2. Gastrointestinal bleed, probably blood loss from gastrointestinal bleed. 3. Blood loss anemia. 4. Diabetes mellitus. PLAN: To start the patient on medication. Will put the patient also on Flagyl and Levaquin for his leukocytosis and his elevated lactic acid. Also, the patient has sepsis. Will continue same. Blood work will be done tomorrow. Further recommendations on clinical course. Will continue to monitor the patient, and a consult with Dr. Ernesto De Anda will be done too. Job#: [id number]
[2018-01-24 12:10] LABS: % IRON SATURATION 28 % (15-50); IRON 87 ug/dL (65-175); TOTAL IRON BINDING CAPACITY 311 ug/dL (261-478); TRANSFERRIN 222 mg/dL (174-364)
[2018-01-24 12:36] LABS: BASOPHILS % 0.2 % (0.0-1.0); EOSINOPHILS % 0.2 % (0.0-6.0); HEMATOCRIT 26.5 % (38.2-49.6); HEMOGLOBIN 8.7 g/dL (14.0-18.0); LYMPHOCYTES # (AUTO) 2.3 (1.0-3.2); LYMPHOCYTES % 11.9 % (18.0-39.1); MEAN CORPUSCULAR HEMOGLOBIN 29.8 pg (28-32); MEAN CORPUSCULAR HGB CONC 32.8 g/dL (31-35); MONOCYTES # (AUTO) 1.5 (0.2-0.8); MONOCYTES % 7.7 % (4.4-11.3); NEUTROPHILS # (AUTO) 14.7 (2.1-6.9); NEUTROPHILS % 77.5 % (38.7-80.0); PLATELET COUNT 185 x10e3/uL (140-360); RED BLOOD COUNT 2.92 x10e6/uL (4.3-5.7); RED CELL DISTRIBUTION WIDTH 17.6 % (11.7-14.4)
[2018-01-24 12:37] LABS: MEAN CORPUSCULAR VOLUME 90.8 fL (81-99)
[2018-01-24 13:05] LABS: CREATINE KINASE MB 1.5 ng/mL (0-5.0)
[2018-01-24 15:04] LABS: LYMPHOCYTES % (MANUAL) 16 % (19-48); METAMYELOCYTES % (MANUAL) 1 % (0-0); MONOCYTES % (MANUAL) 3 % (3.4-9.0); NEUTROPHILS % (MANUAL) 80 % (40-74); PLATELET ESTIMATE ADEQUATE; PLATELET MORPHOLOGY COMMENT NORMAL; RBC MORPHOLOGY COMMENT NORMAL
[2018-01-24 18:31] LABS: BASOPHILS % 0.2 % (0.0-1.0); EOSINOPHILS # (AUTO) 0.1 (0.0-0.4); EOSINOPHILS % 0.4 % (0.0-6.0); HEMATOCRIT 24.6 % (38.2-49.6); HEMOGLOBIN 7.9 g/dL (14.0-18.0); LYMPHOCYTES # (AUTO) 2.3 (1.0-3.2); LYMPHOCYTES % 12.4 % (18.0-39.1); MEAN CORPUSCULAR HEMOGLOBIN 29.8 pg (28-32); MEAN CORPUSCULAR HGB CONC 32.1 g/dL (31-35); MEAN CORPUSCULAR VOLUME 92.8 fL (81-99); MONOCYTES # (AUTO) 1.3 (0.2-0.8); MONOCYTES % 7.2 % (4.4-11.3); NEUTROPHILS # (AUTO) 14.2 (2.1-6.9); NEUTROPHILS % 77.1 % (38.7-80.0); PLATELET COUNT 172 x10e3/uL (140-360); RED BLOOD COUNT 2.65 x10e6/uL (4.3-5.7); RED CELL DISTRIBUTION WIDTH 18.3 % (11.7-14.4)
[2018-01-24 18:55] LABS: CREATINE KINASE MB 1.5 ng/mL (0-5.0)
[2018-01-24 19:42] LABS: LYMPHOCYTES % (MANUAL) 9 % (19-48); MONOCYTES % (MANUAL) 3 % (3.4-9.0); NEUTROPHILS % (MANUAL) 88 % (40-74); NUCLEATED RED BLOOD CELLS 1
[2018-01-24 19:43] LABS: ANISOCYTOSIS SLIGHT; PLATELET MORPHOLOGY COMMENT NORMAL; POLYCHROMASIA FEW; RBC MORPHOLOGY COMMENT NORMAL
[2018-01-24 19:46] LABS: PLATELET ESTIMATE ADEQUATE
--- NOTE | 2018-01-24 22:05 | Consultation ---
DATE OF CONSULTATION: January 24, 2018 GI CONSULTATION REFERRING PHYSICIAN: Joe Ray MD REASON FOR CONSULT: Multiple episodes of melena at home times 2 days. HISTORY OF PRESENTING ILLNESS: A 77-year-old very pleasant white male with past medical history of type 2 diabetes, hypertension, hyperlipidemia, coronary artery disease, status post PCI with stents, not on any anticoagulants. He had been experiencing passing dark tarry stool at home. That occurred a couple of times before he realized that he should seek medical assistance. Denies any associated syncope or presyncopal episode. He did admit to some discomfort in the mid abdomen. No associated nausea, vomiting, hematemesis or hematochezia. No prior history of peptic ulcer disease. In the emergency room, he was noted to be hemodynamically stable, not orthostatic. Blood work revealed hemoglobin of 8.0 which subsequently dropped down to 7.9 today. He got admitted in the ICU. He has been getting IV fluid along with intravenous pantoprazole. He got admitted with working diagnosis of upper gastrointestinal bleed manifesting as melena. REVIEW OF SYSTEMS: A 12-point system reviewed. Symptomatology is limited as per HPI. PAST MEDICAL HISTORY: Coronary artery disease, hypertension, type 2 diabetes. PAST SURGICAL HISTORY: PCI with stents. Colonoscopy in the remote past. Right shoulder surgery, some prostate surgery. FAMILY HISTORY: Noncontributory. No GI or [employer] malignancies. Hypertension and diabetes runs in the family. SOCIAL HISTORY: No smoking, alcohol or any illicit drug use. HOME MEDICATIONS: Amlodipine, aspirin, clopidogrel, metoprolol, simvastatin, Aldactone. ALLERGIES: NO KNOWN DRUG ALLERGIES. INPATIENT MEDICATIONS: List reviewed. PHYSICAL EXAMINATION: VITAL SIGNS: Temperature 98.5, pulse 74, respirations 16, blood pressure 127/74 to 131/62, oxygen saturation 100% on 2 L nasal cannula. GENERAL: Not in any acute distress. HEENT: Moist mucous membrane. Anicteric sclerae. CVS: S1, S2 regular. LUNGS: Bilaterally grossly clear. ABDOMEN: Soft, nondistended, nontender. No palpable mass or hernia. Positive bowel sounds. EXTREMITIES: Warm. No leg edema. LABORATORY DATA: Hemoglobin dropped down to 7.9 from 8.0. WBC 18.11 which remains elevated to 18.44, hematocrit 24.6, platelet count 172,000. Sodium 133, potassium 5.6, chloride 105, bicarbonate 20, BUN 104, creatinine 2.47, glucose 289. Liver enzymes normal. Troponins negative. Amylase, lipase normal. Chest x-ray, no acute cardiopulmonary process. IMPRESSION: Upper gastrointestinal bleed, hemodynamically stable. PLAN: Agree to continue observation in the ICU. IV fluids, large IV access to secure IV access. Oxygen, monitor serial hemoglobin, transfuse as necessary to keep the hemoglobin above 7. Agree to continue PPI gtt. Clear liquid diet. Upper endoscopy tomorrow. If endoscopy is negative, patient will need a colonoscopy. I thank Dr. Ray for allowing me to participate in the care of this patient. Job#: [id number] PANCHITO
[2018-01-25] VITALS (42 sets, daily range): BP systolic 105–158; BP diastolic 58–89
[2018-01-25] MEDS: PIPERACILLIN/TAZO 2.25 GM 50 ML IV SCH ×5 (00:10→23:00)
[2018-01-25] MEDS: PANTOPRAZOL 40MG/SOD CHL 0.9% 50 ML IV SCH ×5 (00:31→21:45)
[2018-01-25] MEDS: INSULIN REGULAR, HUMAN 100 UNIT/1 ML 3ML VIAL SQ SCH ×3 (05:57→18:01)
[2018-01-25 06:05] LABS: BASOPHILS # (AUTO) 0.1 (0.0-0.1); BASOPHILS % 0.3 % (0.0-1.0); EOSINOPHILS # (AUTO) 0.2 (0.0-0.4); HEMOGLOBIN 7.1 g/dL (14.0-18.0); LYMPHOCYTES # (AUTO) 2.4 (1.0-3.2); LYMPHOCYTES % 13.2 % (18.0-39.1); MEAN CORPUSCULAR HEMOGLOBIN 29.8 pg (28-32); MEAN CORPUSCULAR HGB CONC 32.3 g/dL (31-35); MEAN CORPUSCULAR VOLUME 92.4 fL (81-99); MONOCYTES # (AUTO) 1.1 (0.2-0.8); MONOCYTES % 6.2 % (4.4-11.3); NEUTROPHILS % 76.7 % (38.7-80.0); PLATELET COUNT 152 x10e3/uL (140-360); RED BLOOD COUNT 2.38 x10e6/uL (4.3-5.7); RED CELL DISTRIBUTION WIDTH 18.7 % (11.7-14.4)
[2018-01-25] MEDS ORDERED: SODIUM CHLORIDE 0.9% 250ML 250 ML IV ONE (06:30)
[2018-01-25 06:34] LABS: ALBUMIN 2.7 g/dL (3.5-5.0); ALBUMIN/GLOBULIN RATIO 1.2 (0.8-2.0); ANION GAP 10.4 mmol/L (8-16); CALCIUM 8.5 mg/dL (8.4-10.2); CREATININE, SERUM 2.68 mg/dL (0.72-1.25); POTASSIUM 5.4 mmol/L (3.5-5.1)
[2018-01-25] MEDS ORDERED: SODIUM CHLORIDE 0.9% 250ML 250 ML ONE (08:01)
[2018-01-25 08:10] LABS: BAND NEUTROPHILS % (MANUAL) 1 %; EOSINOPHILS % (MANUAL) 1 % (0-7); LYMPHOCYTES % (MANUAL) 10 % (19-48); MONOCYTES % (MANUAL) 4 % (3.4-9.0); MYELOCYTES % (MANUAL) 2 % (0-0); NEUTROPHILS % (MANUAL) 82 % (40-74); PLATELET ESTIMATE ADEQUATE; PLATELET MORPHOLOGY COMMENT NORMAL; RBC MORPHOLOGY COMMENT NORMAL
[2018-01-25] MEDS ORDERED: LACTULOSE SYRUP 20 GM/30 ML UDC PO ONE ×2 (09:00)
[2018-01-25] MEDS ORDERED: SOD POLYSTYRENE SULFONATE SUSP 15 GM/60 ML BTL PR ONE (09:00)
[2018-01-25] MEDS: FUROSEMIDE INJ 10 MG/ML 2 ML VIAL IV PRN (10:00)
[2018-01-25 11:36] LABS: BASOPHILS # (AUTO) 0.1 (0.0-0.1); BASOPHILS % 0.3 % (0.0-1.0); EOSINOPHILS # (AUTO) 0.2 (0.0-0.4); EOSINOPHILS % 0.7 % (0.0-6.0); HEMATOCRIT 30.7 % (38.2-49.6); HEMOGLOBIN 9.9 g/dL (14.0-18.0); LYMPHOCYTES # (AUTO) 2.7 (1.0-3.2); MEAN CORPUSCULAR HEMOGLOBIN 29.6 pg (28-32); MEAN CORPUSCULAR HGB CONC 32.2 g/dL (31-35); MEAN CORPUSCULAR VOLUME 91.6 fL (81-99); MONOCYTES # (AUTO) 1.2 (0.2-0.8); MONOCYTES % 5.5 % (4.4-11.3); NEUTROPHILS # (AUTO) 17.7 (2.1-6.9); NEUTROPHILS % 78.4 % (38.7-80.0); PLATELET COUNT 164 x10e3/uL (140-360); RED BLOOD COUNT 3.35 x10e6/uL (4.3-5.7); RED CELL DISTRIBUTION WIDTH 17.4 % (11.7-14.4)
[2018-01-25 12:11] LABS: CREATINE KINASE MB 1.1 ng/mL (0-5.0)
[2018-01-25] MEDS ORDERED: SOD POLYSTYRENE SULFONATE SUSP 15 GM/60 ML BTL PO ONE (12:30)
[2018-01-25] MEDS: SODIUM CHLORIDE 0.9% 1000ML 1,000 ML IV SCH (12:40)
--- NOTE | 2018-01-25 14:01 | Consultation ---
DATE OF CONSULTATION: January 25, 2018 A 77-year-old gentleman who was actually from [place], who was admitted, patient of Dr. Tico Lacey. Renal consult for hyperkalemia. He presented with GI bleed and scheduled for a endoscopy. Was found to have a potassium of 5.1, bicarbonate 21, creatinine 2.68. He was given 1 unit of packed RBC transfusion. Platelets are 164,000. I held the secondary unit on account of the fact that potassium was elevated. I ordered him some Kayexalate. He has already had 1 bowel movement. Repeat potassium 5.1. He was given another dose of Kayexalate. He is currently sitting up in no apparent distress. Prior history of CVA, TIA, left ventricular hypertrophy, ejection fraction 60%, type 2 diabetes, hypertension. Used to smoke and has quit. Denies alcohol use. Has had coronary artery disease, status post PCI and stent placement. History of hypertension. The patient denies prior history of any kidney disease, but has a history of chronic kidney disease, stage 3 at least. CURRENT MEDICATIONS: Include normal saline at 50 mL an hour. He is on pantoprazole, lactulose and received furosemide with packed RBC transfusion. ALLERGIES: NO APPARENT DRUG ALLERGIES. SOCIAL HISTORY: Occasionally drinks. Quit smoking. He is . FAMILY HISTORY: Significant for hypertension and diabetes. Chest x-ray: Please see official report. Shows no pleural effusion and no consolidation. PHYSICAL EXAMINATION GENERAL: Awake, alert and sitting up in no apparent distress. VITALS: Blood pressure 156/64, pulse rate 114, afebrile, respiratory rate 17. HEENT: Conjunctivae clear. Oral mucosa dry. LUNGS: Relatively clear. HEART: S1 and S2 audible. ABDOMEN: Soft and nontender. LOWER EXTREMITY: Shows no edema. IMPRESSION 1. Underlying hypertension. 2. Diabetes. 3. Underlying chronic nephrosclerosis. 4. Chronic kidney disease, 3, most likely with acute kidney failure component: Will obtain kidney ultrasound and spot urine protein creatinine ratio. Strict intake and output. 5. 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 6. Type 4 hyperlipidemia. 7. Hypoaldosteronism. Discussed with RN. Please see orders. Discussed with family. Job#: [id number] ALANNA
--- NOTE | 2018-01-25 17:34 | Consultation ---
DATE OF CONSULTATION: January 25, 2018 The patient was already seen by Dr. Luis Miguel Mckeon over the weekend and also this morning, and he is my patient which is the reason why Dr. Luis Miguel Mckeon asked me to see this patient. DIAGNOSES 1. Anemia. 2. Possible gastrointestinal bleed. 3. Type 2 diabetes mellitus. 4. Hypertension. 5. History of coronary artery disease and stent placement in the past. MEDICATIONS: Amlodipine 10 mg once a day, aspirin 325 mg a day, Clopidogrel 75 mg daily, metoprolol 100 mg twice a day, Simvastatin 20 mg daily, Aldactone 25 mg once a day. The patient's family physician is Dr. Cory Diaz who has already seen this patient. At this time, the patient does not have any cardiac issues. The patient came to the hospital because of dizziness, feeling weak and the patient also found to have diarrhea. The patient also got some Kayexalate because of hyperkalemia. The patient also has renal failure with creatinine 2.5. Troponins are negative. EKG does not show any acute ischemic changes. Clinically, no evidence of congestive heart failure. Neurologically, the patient is normal. Abdomen is normal at this time. The patient is scheduled to have endoscopy by GI specialist tomorrow. At this time, cardiac dueñas there is no need for further cardiac evaluation done. The patient had carotid Duplex scan performed at this hospital and found to have moderate bilateral carotid stenosis noted. However, not significant enough. At this time, the patient medication will cover for carotid disease also. However, once GI workup is done probably will do one more Doppler scan in about 3 months to evaluate carotid disease. I will continue to follow the patient from a cardiac point of view, the present medications. Thank you for this consultation. Job#: [id number]
--- NOTE | 2018-01-25 18:55 | Diagnostic Imaging Report ---
PROCEDURE:US RETROPERITONEAL ( KIDNEY ). COMPARISON:Patients [facility], CT, CTA ABD/PEL/BILATERAL LOWER EXT RUNOFF W \T\ W/O CONTRAST, 12/07/2009, 9:43. INDICATIONS:renal insufficiency TECHNIQUE: Terrell-scale and color sonographic images of the bilateral kidneys and bladder where obtained in transverse and longitudinal planes. FINDINGS: RIGHT KIDNEY: 11.3 cm in length. Cysts: 2 adjacent cysts in the interpolar region measure up to 23 x 21 x 22 mm. Solid masses: None Stones: None Hydronephrosis: None Echogenicity: Increased LEFT KIDNEY: 9.6 cm in length. Cysts: Multiple cysts measure up to 3.6 x 3.3 x 3.0 cm. Solid masses: None Stones: None Hydronephrosis: None Echogenicity: Increased Bladder: Collapsed around a Bailey catheter. Prostate: Not visualized. Survey images of the liver demonstrate no focal abnormality. CONCLUSION: Increased renal echotexture suggestive of medical renal disease. Bilateral renal cysts. No solid renal mass or hydronephrosis. Dictated by: Srinivas Lainez M.D. on 01/25/2018 at 18:59 Electronically approved by: Srinivas Lainez M.D. on 01/25/2018 at 18:59
[2018-01-25 19:18] LABS: BASOPHILS # (AUTO) 0.1 (0.0-0.1); BASOPHILS % 0.3 % (0.0-1.0); EOSINOPHILS # (AUTO) 0.1 (0.0-0.4); EOSINOPHILS % 0.4 % (0.0-6.0); HEMATOCRIT 29.6 % (38.2-49.6); HEMOGLOBIN 9.4 g/dL (14.0-18.0); LYMPHOCYTES # (AUTO) 2.9 (1.0-3.2); LYMPHOCYTES % 13.8 % (18.0-39.1); MEAN CORPUSCULAR HEMOGLOBIN 29.9 pg (28-32); MEAN CORPUSCULAR HGB CONC 31.8 g/dL (31-35); MEAN CORPUSCULAR VOLUME 94.3 fL (81-99); MONOCYTES # (AUTO) 1.3 (0.2-0.8); MONOCYTES % 6.3 % (4.4-11.3); NEUTROPHILS # (AUTO) 16.2 (2.1-6.9); NEUTROPHILS % 76.7 % (38.7-80.0); PLATELET COUNT 153 x10e3/uL (140-360); RED BLOOD COUNT 3.14 x10e6/uL (4.3-5.7); RED CELL DISTRIBUTION WIDTH 18.4 % (11.7-14.4)
--- NOTE | 2018-01-25 22:35 | Progress Note ---
DATE: January 25, 2018 SUBJECTIVE: Patient could not get upper endoscopy due to hyperkalemia. One or two episodes of passing black tarry stool. No abdominal pain. REVIEW OF SYSTEMS GENERAL: No fever or chills. CVS: No chest pain or palpitation. RESPIRATORY: No cough or expectoration. MEDICATIONS: Reviewed as per the MAR, he is on PPI infusion. Also on intravenous Zosyn. PHYSICAL EXAMINATION VITAL SIGNS: Temperature 98.3, pulse ranging from 103 to 105, blood pressure 151/77. Oxygen saturation on 100% on 2 L of nasal cannula. GENERAL: Not in any acute distress. Oral mucosa is moist. Anicteric sclerae. CVS: S1, S2 regular. LUNGS: Bilaterally grossly clear. ABDOMEN: Soft, nondistended, nontender. No mass or hernia. Positive bowel sound. EXTREMITIES: Warm. No leg edema. LABS: WBC has gone up to 21.16, hemoglobin down to 7.1 and it went up to 9.4 after I offered 2 units of packed red blood cells, platelet count 153,000. Potassium was 5.6, which has come down to 5.1 after giving Kayexalate. IMPRESSIONS 1. No active gastrointestinal bleeding. Hemodynamically stable. A drop in hemoglobin likely dilutional due to fluid shift. I do not suspect any active bleeding at this time. 2. Leukocytosis, cause unclear. On empiric antibiotic. PLAN: Continue PPI infusion at least for tonight. Monitor stool. Upper endoscopy tomorrow. Further recommendation based upon endoscopy finding. Job#: [id number]
[2018-01-26] VITALS (94 sets, daily range): BP systolic 78–181; BP diastolic 36–90
[2018-01-26] MEDS: INSULIN REGULAR, HUMAN 100 UNIT/1 ML 3ML VIAL SQ SCH ×4 (00:26→17:06)
[2018-01-26] MEDS: PANTOPRAZOL 40MG/SOD CHL 0.9% 50 ML IV SCH ×5 (03:30→22:30)
[2018-01-26] MEDS: SODIUM CHLORIDE 0.9% 1000ML 1,000 ML IV SCH (05:00)
[2018-01-26] MEDS: PIPERACILLIN/TAZO 2.25 GM 50 ML IV SCH ×4 (05:23→18:29)
[2018-01-26 05:36] LABS: BASOPHILS % 0.2 % (0.0-1.0); EOSINOPHILS # (AUTO) 0.1 (0.0-0.4); EOSINOPHILS % 0.4 % (0.0-6.0); HEMATOCRIT 23.5 % (38.2-49.6); HEMOGLOBIN 7.8 g/dL (14.0-18.0); LYMPHOCYTES % 11.6 % (18.0-39.1); MEAN CORPUSCULAR HEMOGLOBIN 30.4 pg (28-32); MEAN CORPUSCULAR HGB CONC 33.2 g/dL (31-35); MEAN CORPUSCULAR VOLUME 91.4 fL (81-99); MONOCYTES # (AUTO) 1.2 (0.2-0.8); MONOCYTES % 7.3 % (4.4-11.3); NEUTROPHILS # (AUTO) 13.3 (2.1-6.9); NEUTROPHILS % 78.7 % (38.7-80.0); PLATELET COUNT 148 x10e3/uL (140-360); RED BLOOD COUNT 2.57 x10e6/uL (4.3-5.7); RED CELL DISTRIBUTION WIDTH 18.3 % (11.7-14.4)
[2018-01-26 05:57] LABS: ALBUMIN 2.7 g/dL (3.5-5.0); ALBUMIN/GLOBULIN RATIO 1.1 (0.8-2.0); ANION GAP 13.9 mmol/L (8-16); CALCIUM 8.1 mg/dL (8.4-10.2); CREATININE, SERUM 2.6 mg/dL (0.72-1.25); POTASSIUM 3.9 mmol/L (3.5-5.1)
[2018-01-26] MEDS ORDERED: NITROGLYCERIN 0.4 MG SUBL ONE (06:36)
[2018-01-26] MEDS ORDERED: NITROGLYCERIN 0.4 MG SUBL SL ONE (06:45)
[2018-01-26] MEDS ORDERED: NITROGLYCERIN 0.4 MG SUBL SL PRN (07:50)
--- NOTE | 2018-01-26 08:27 | Progress Note ---
DATE: January 26, 2018 GI PROGRESS NOTE SUBJECTIVE: Patient was supposed to get upper endoscopy today for evaluation of melena. However, this morning he started complaining of mid-sternal chest pain. His blood pressure shot up. Systolic blood pressure went up above 170. Nitroglycerin was given with which the chest pain subsequently got resolved. Cardiac markers were drawn. Hemoglobin had dropped further down today from 9.4 to 7.8. No gross GI bleeding reported. REVIEW OF SYSTEMS GENERAL: No fever or chills. CVS: Chest pain as stated above. No palpitations. RESPIRATORY: No shortness of breath, cough or expectoration. MEDICATIONS: Reviewed as per OCT. Patient is still on Protonix drip. He is also getting intravenous piperacillin/tazobactam. PHYSICAL EXAMINATION VITAL SIGNS: Temperature 97.5. Pulse 104 to 105. Respirations 16. Blood pressure 123/69. Oxygen saturation 99% on 2 liters of nasal cannula. GENERAL: Not in any acute distress. HEENT: Moist mucous membranes. Anicteric sclerae. NECK: No neck or axillary adenopathy. CVS: S1 and S2 regular. A 2/6 flow murmur at the apex. LUNGS: Bilaterally grossly clear. ABDOMEN: Soft. Nondistended, nontender. No palpable mass or hernia. Positive bowel sounds. EXTREMITIES: Warm. Trace leg edema. LABS: White count has come down to 16.93 from 18.44. Hemoglobin down to 7.8 from 9.4. Hematocrit down to 23.5 from 29.6. Platelet count 148. Sodium 147. Potassium 3.9, chloride 116, bicarb 21, BUN 68 creatinine 2.60, glucose 180. Renal ultrasound yesterday showed increased renal echo texture suggestive of medical renal disease. Bilateral renal cysts. No solid renal mass or hydronephrosis. IMPRESSION 1. Acute onset of mid-sternal chest pain requiring nitroglycerin. Cardiac marker troponin has gone up from 0.054 to 0.385. Cardiology has been consulted. Dr. Cosby instructed not to proceed with any endoscopy. 2. Hemoglobin dropped from 9.4 to 7.8 without any evidence of gross GI bleeding. 3. Leukocytosis empirically being treated with antibiotics, source unclear. Blood culture no growth. Chest x-ray: No acute cardiopulmonary process. Urinalysis showed WBC of 6 to 10. PLAN 1. From a GI standpoint, we will continue Protonix GTT for another 24 hours. Will monitor his stool. Check for any gross GI bleeding. Will continue on a clear liquid diet. Patient has not had any colonoscopy. Therefore, colonoscopy will also be done after upper endoscopy only if cleared by cardiology. 2. Transfuse as necessary to keep the hemoglobin at least above 7. Job#: [id number]
[2018-01-26] MEDS: ISOSORBIDE MONONITRATE 30 MG TAB CR PO SCH (08:35)
[2018-01-26] MEDS: NITROGLYCERIN 2% OINT 1 GM PKT TOP SCH ×3 (08:36→18:29)
[2018-01-26] MEDS ORDERED: FUROSEMIDE INJ 10 MG/ML 4 ML VIAL IV ONE (09:15)
[2018-01-26] MEDS ORDERED: SODIUM CHLORIDE 0.9% 250ML 250 ML IV ONE (09:15)
[2018-01-26] MEDS: DEXTROSE 5% 1,000 ML IV SCH ×3 (10:45→14:00)
[2018-01-26 15:13] LABS: BASOPHILS % 0.1 % (0.0-1.0); EOSINOPHILS % 0.3 % (0.0-6.0); HEMATOCRIT 23.6 % (38.2-49.6); LYMPHOCYTES # (AUTO) 1.4 (1.0-3.2); LYMPHOCYTES % 8.8 % (18.0-39.1); MEAN CORPUSCULAR HEMOGLOBIN 30.7 pg (28-32); MEAN CORPUSCULAR HGB CONC 33.9 g/dL (31-35); MEAN CORPUSCULAR VOLUME 90.4 fL (81-99); MONOCYTES % 6.5 % (4.4-11.3); NEUTROPHILS # (AUTO) 13.3 (2.1-6.9); NEUTROPHILS % 82.9 % (38.7-80.0); PLATELET COUNT 124 x10e3/uL (140-360); RED BLOOD COUNT 2.61 x10e6/uL (4.3-5.7); RED CELL DISTRIBUTION WIDTH 17.6 % (11.7-14.4)
--- NOTE | 2018-01-26 15:27 | Progress Note ---
DATE: January 26, 2018 CARDIOLOGY PROGRESS NOTE The patient was seen in the ICU. The patient has no chest pain. The patient had an episode of substernal chest discomfort relieved with nitroglycerin again at 1 o'clock I believe. At this time, the patient is borderline increasing troponins noted. Troponin at 2 p.m. and 8 p.m. At this time, EKG does not show any ischemic changes. Echocardiogram showed an ejection fraction of 66% with severe pericardial effusion present. The patient's nuclear stress test was performed in September of this year, and was found to be normal. The patient had coronary stent placement done in the past, and also history of hypertension, type 2 diabetes mellitus. The patient at this time admitted for anemia. The patient so far received 2 units of blood transfusion. The patient possibly has GI bleed. GI specialist also following the patient closely. At this time, endoscopy was postponed because of chest pain. However, will re-evaluate the patient's chest pain with troponin. Depending upon the results, may need heart catheterization. If there is no further increase in troponin and goes down properly, I may consider clearing for endoscopy. At this time, we are going to do a coronary angiogram. We may not be able to do heparin because of possible GI bleed. However, if the patient's significant chest pain and EKG changes, further increase in troponin, he may need coronary angiogram to assess the coronary arteries. This was discussed with the patient. Will continue to follow the patient's present medications. Job#: [id number] ALANNA
[2018-01-26 21:13] LABS: BASOPHILS % 0.2 % (0.0-1.0); EOSINOPHILS # (AUTO) 0.1 (0.0-0.4); EOSINOPHILS % 0.5 % (0.0-6.0); HEMATOCRIT 23.9 % (38.2-49.6); HEMOGLOBIN 7.9 g/dL (14.0-18.0); LYMPHOCYTES # (AUTO) 1.4 (1.0-3.2); LYMPHOCYTES % 9.3 % (18.0-39.1); MEAN CORPUSCULAR HEMOGLOBIN 30.5 pg (28-32); MEAN CORPUSCULAR HGB CONC 33.1 g/dL (31-35); MEAN CORPUSCULAR VOLUME 92.3 fL (81-99); MONOCYTES # (AUTO) 1.1 (0.2-0.8); MONOCYTES % 6.8 % (4.4-11.3); NEUTROPHILS # (AUTO) 12.5 (2.1-6.9); NEUTROPHILS % 81.8 % (38.7-80.0); PLATELET COUNT 124 x10e3/uL (140-360); RED BLOOD COUNT 2.59 x10e6/uL (4.3-5.7)
[2018-01-26 21:42] LABS: CREATINE KINASE MB 2.7 ng/mL (0-5.0)
[2018-01-27] VITALS (56 sets, daily range): BP systolic 97–171; BP diastolic 45–101
[2018-01-27] MEDS: NITROGLYCERIN 2% OINT 1 GM PKT TOP SCH ×4 (00:08→19:23)
[2018-01-27] MEDS: PIPERACILLIN/TAZO 2.25 GM 50 ML IV SCH ×4 (00:08→19:23)
[2018-01-27] MEDS: PANTOPRAZOL 40MG/SOD CHL 0.9% 50 ML IV SCH ×5 (04:00→22:30)
[2018-01-27 05:47] LABS: BASOPHILS % 0.2 % (0.0-1.0); EOSINOPHILS # (AUTO) 0.2 (0.0-0.4); HEMATOCRIT 22.2 % (38.2-49.6); HEMOGLOBIN 7.4 g/dL (14.0-18.0); LYMPHOCYTES # (AUTO) 1.3 (1.0-3.2); LYMPHOCYTES % 8.4 % (18.0-39.1); MEAN CORPUSCULAR HEMOGLOBIN 30.2 pg (28-32); MEAN CORPUSCULAR HGB CONC 33.3 g/dL (31-35); MEAN CORPUSCULAR VOLUME 90.6 fL (81-99); MONOCYTES % 6.7 % (4.4-11.3); NEUTROPHILS # (AUTO) 12.7 (2.1-6.9); NEUTROPHILS % 82.8 % (38.7-80.0); PLATELET COUNT 124 x10e3/uL (140-360); RED BLOOD COUNT 2.45 x10e6/uL (4.3-5.7); RED CELL DISTRIBUTION WIDTH 17.2 % (11.7-14.4)
[2018-01-27] MEDS: INSULIN REGULAR, HUMAN 100 UNIT/1 ML 3ML VIAL SQ SCH ×5 (06:00→23:53)
[2018-01-27 06:07] LABS: ALBUMIN 2.4 g/dL (3.5-5.0); ANION GAP 12.2 mmol/L (8-16); CALCIUM 7.6 mg/dL (8.4-10.2); CREATININE, SERUM 2.35 mg/dL (0.72-1.25); POTASSIUM 3.2 mmol/L (3.5-5.1)
[2018-01-27] MEDS ORDERED: POTASSIUM CHLORIDE 20MEQ/100ML 200 ML IV ONE (07:45)
[2018-01-27] MEDS ORDERED: MAGNESIUM SULFATE 2GM/50ML 50 ML IV ONE (07:45)
[2018-01-27] MEDS: ISOSORBIDE MONONITRATE 30 MG TAB CR PO SCH (08:18)
[2018-01-27] MEDS ORDERED: SODIUM CHLORIDE 0.9% 250ML 250 ML IV ONE (08:45)
[2018-01-27] MEDS ORDERED: FUROSEMIDE INJ 10 MG/ML 2 ML VIAL IV ONE (09:15)
[2018-01-27] MEDS: DEXTROSE 5% 1,000 ML IV SCH (12:48)
[2018-01-27] MEDS ORDERED: SODIUM CHLORIDE 0.9% 250ML 250 ML ONE (12:59)
[2018-01-27] MEDS ORDERED: SODIUM CHLORIDE 0.45% 1,000 ML IV SCH (14:15)
[2018-01-27] MEDS ORDERED: ACETYLCYSTEINE 20% INHAL SOLN 30 ML VIAL PO SCH ×2 (14:15→14:33)
[2018-01-27] MEDS: SODIUM CHLORIDE 0.9% 1000ML 1,000 ML IV SCH (16:39)
--- NOTE | 2018-01-27 16:39 | Progress Note ---
DATE: January 27, 2018 The patient was seen in the room, discussed with the , and also children, and the patient. The patient had one more episode of chest pain. Troponin is borderline high, consistently high, and the patient has stents put in before. The patient came with acute GI bleed. He got 2 units of blood transfusion. Hemoglobin 7.5 grams percent. The patient already seen by Dr. Blevins, road freight conductor, as the patient has chronic renal failure also. At this time, will do an angiogram because the patient has had chest pain 3 times with borderline troponin to evaluate his coronary artery status. The patient needs to have endoscopy to find out where the bleeding is arising from, and so once the angiogram is done, if necessary, I need to put a stent. I also explained to the patient and the GI and renal specialist. The patient after undergoing coronary angiogram, further decision about endoscopy procedure. Will be discussed with GI specialist. The patient may need to get heparin for his stent placement if necessary, will also increase his bleeding. However, the patient is hemodynamically stable, and the patient agreeable for the procedure knowing very well he has severe kidney problems and GI issues, and further he may end up having dialysis. It may be temporary or permanent. Also, this can complicate angiography associated procedures including stent placement and possible plus or minus bypass surgery. Job#: [id number]
[2018-01-27 17:17] LABS: BASOPHILS % 0.2 % (0.0-1.0); EOSINOPHILS # (AUTO) 0.2 (0.0-0.4); EOSINOPHILS % 1.1 % (0.0-6.0); HEMATOCRIT 24.8 % (38.2-49.6); HEMOGLOBIN 8.2 g/dL (14.0-18.0); LYMPHOCYTES # (AUTO) 1.3 (1.0-3.2); LYMPHOCYTES % 9.3 % (18.0-39.1); MEAN CORPUSCULAR HEMOGLOBIN 30.4 pg (28-32); MEAN CORPUSCULAR HGB CONC 33.1 g/dL (31-35); MEAN CORPUSCULAR VOLUME 91.9 fL (81-99); MONOCYTES # (AUTO) 0.8 (0.2-0.8); MONOCYTES % 5.5 % (4.4-11.3); NEUTROPHILS # (AUTO) 11.6 (2.1-6.9); NEUTROPHILS % 82.8 % (38.7-80.0); PLATELET COUNT 108 x10e3/uL (140-360); RED CELL DISTRIBUTION WIDTH 17.2 % (11.7-14.4)
--- NOTE | 2018-01-27 20:36 | Progress Note ---
DATE: January 27, 2018 SUBJECTIVE: Patient has had 1 episode of chest pain last night. The chest pain got resolved with nitroglycerin. Cardiology recommended to hold off on any upper endoscopy. Patient is going to have a cardiac cath tomorrow. One episode of bowel movement, stool was noted slightly darker. No hematemesis, abdominal pain or any anatoly melena. PHYSICAL EXAMINATION VITAL SIGNS: Temperature 99.9, pulse 72, blood pressure 124/55, oxygen saturation 100% on 2 L of nasal cannula. GENERAL: Not in any acute distress. HEENT: Moist mucous membranes. Anicteric sclerae. CVS: S1, S2 regular. LUNGS: Bilaterally grossly clear. ABDOMEN: Soft, nondistended. Protuberant belly. Nontender. No palpable mass or hernia. Positive bowel sounds. EXTREMITIES: Warm. No leg edema. LABS: Hemoglobin dropped down to 7.4 and then picked up to 8.2 after he received 1 unit of packed red blood cells. MEDICATIONS: MAR reviewed. IMPRESSION 1. Upper gastrointestinal bleed, stable. Hemoglobin picked up appropriately after 1 unit of packed red blood cells. 2. Leukocytosis, improving with antibiotic, cause of leukocytosis is still very elusive. PLAN: Continue with cardiac cath as planned. Once cleared by cardiology, then we will perform upper endoscopy. Will continue clear liquid diet. If need be, then we will also give bowel prep too for colonoscopy on this admission. Job#: [id number] CARLOS
[2018-01-27] MEDS: ACETYLCYSTEINE 20% INHAL SOLN 30 ML VIAL PO SCH (21:00)
[2018-01-28] VITALS (49 sets, daily range): BP systolic 96–161; BP diastolic 46–84
[2018-01-28] MEDS: SODIUM CHLORIDE 0.9% 1000ML 1,000 ML IV SCH (03:00)
[2018-01-28] MEDS: PANTOPRAZOL 40MG/SOD CHL 0.9% 50 ML IV SCH ×2 (03:30→08:30)
[2018-01-28] MEDS: INSULIN REGULAR, HUMAN 100 UNIT/1 ML 3ML VIAL SQ SCH ×3 (06:00→17:50)
[2018-01-28] MEDS: PIPERACILLIN/TAZO 2.25 GM 50 ML IV SCH ×4 (06:00→17:45)
[2018-01-28] MEDS: NITROGLYCERIN 2% OINT 1 GM PKT TOP SCH ×4 (06:00→17:50)
[2018-01-28 06:18] LABS: ALBUMIN 2.6 g/dL (3.5-5.0); ALBUMIN/GLOBULIN RATIO 0.8 (0.8-2.0); CALCIUM 7.9 mg/dL (8.4-10.2); CREATININE, SERUM 1.83 mg/dL (0.72-1.25); MAGNESIUM 2.4 MG/DL (1.3-2.1)
[2018-01-28] MEDS: ISOSORBIDE MONONITRATE 30 MG TAB CR PO SCH (07:24)
[2018-01-28] MEDS: ACETYLCYSTEINE 20% INHAL SOLN 30 ML VIAL PO SCH ×2 (07:24→20:55)
[2018-01-28] MEDS ORDERED: MIDAZOLAM HCL 2 MG/2 ML VIAL ONE (13:05)
[2018-01-28] MEDS ORDERED: FENTANYL CITRATE/PF 100MCG/2 ML INJ ONE (13:05)
[2018-01-28] MEDS ORDERED: LIDOCAINE HCL 2% LOCAL 20 ML VIAL ONE (13:34)
[2018-01-28] MEDS ORDERED: HEPARIN SOD/SOD CHLORIDE 2,000 ML ONE (13:34)
[2018-01-28] MEDS ORDERED: IOPAMIDOL 370 MG/ML 200 ML INFUS..BTL INJ ONE (13:34)
[2018-01-28] MEDS ORDERED: HEPARIN SOD (PORCINE) 1000 UNIT/ML 30ML ONE (14:09)
--- NOTE | 2018-01-28 14:12 | Progress Note ---
DATE: January 28, 2018 GI PROGRESS NOTE SUBJECTIVE: Patient has had 2 to 3 bouts of recurrent midsternal chest pain that lasted less than 20 minute last night. He also had 2 small BM's, his stools were reported dark. He is scheduled to undergo cardiac catheterization today. REVIEW OF SYSTEMS GENERAL: No fever or chills. RESPIRATORY: No cough or expectoration. CVS: Chest pain. MEDICATIONS: MAR reviewed. He is on pantoprazole infusion. PHYSICAL EXAMINATION VITAL SIGNS: Temperature 98.5, pulse 76, respirations 16 to 18, blood pressure 122/74, oxygen saturation 100% on 2 liter of nasal cannula. GENERAL: Not in any acute distress. HEENT: Moist mucous membrane. Anicteric sclerae. NECK: No neck or axillary adenopathy. CVS: S1, S2 regular. LUNGS: Bilaterally grossly clear. ABDOMEN: Obese, protuberant, nondistended, nontender. No mass or hernia. Positive bowel sounds. EXTREMITIES: Warm. No leg edema. LABS: WBC has come down to 13.94 from 15.31, hemoglobin 8.2 from 7.4. No hemoglobin drawn today. Platelet count 108. Sodium 141, potassium 4.0, chloride 110, bicarbonate 22, BUN 26, creatinine 1.83 which is down from 2.35. IMPRESSION 1. Upper gastrointestinal bleed, stable. Hemoglobin picked up appropriately after 1 unit of packed red blood cells. However no hemoglobin drawn today. 2. Leukocytosis, improving with antibiotic. 3. Chest pain, likely unstable angina. Cardiac markers went up off from 0.385 to 0.690 and came down to 0.396. PLAN: From GI standpoint, will continue present medical management. Will discuss with cooker helper after cardiac cath as to when the upper endoscopy can be performed. Will continue clear liquid diet. May switch Protonix infusion to 40 mg IV twice daily. Job#: [id number] RAZA
[2018-01-28] MEDS ORDERED: SODIUM CHLORIDE 0.9% 1000ML 1,000 ML IV SCH (15:30)
--- NOTE | 2018-01-28 16:17 | Operative Report ---
DATE OF PROCEDURE: January 28, 2018 PROCEDURES: Left heart catheterization, coronary angiogram of the right femoral artery. INDICATION FOR PROCEDURE: Non-Q-wave myocardial infarction, progressive angina pectoris, and coronary artery disease with history of stent placement in the LAD about 7 years ago, acute GI bleed and renal failure, type 2 diabetes mellitus and hypertension. Left ventricular ejection fraction is about 50%. This procedure done through the right femoral artery after lidocaine infiltration anesthesia and conscious sedation. A diagnostic coronary angiogram performed, and patient's right coronary artery has got a 70% to 75% lesion proximally. Left coronary artery shows the left main artery has got 30% lesion noted. LAD has got proximally a 95% lesion noted. Mid LAD is patent. A stent is noted. Circumflex coronary artery has diffuse disease, and mid circumflex artery has a 90% to 95% lesion noted. Left angiogram is not done because of the renal failure. Echo EF 50%. Contrast used, 50 mL of iodinated contrast used. At this time, I did not do any procedure because of the acute GI bleed and also patient has got triple-vessel disease, is a little high-risk patient, and at this time probably may need Integrilin that may cause further bleeding also. So, at this time I discussed with the family member and I discussed with GI physicians. Patient strictly speaking is a surgical candidate for triple-vessel coronary artery disease. However, we may be able to do the stenting of the coronary arteries; so, I am moving him to [facility] where the cardiovascular surgical backup is available. The critical care ICU patient will be transferred, and I discussed with Dr. Tico Lacey about this transfer. He is agreeable. Patient will be moved today if the bed is available at [place]. However, the patient developed significant chest pain and I had to take him to the custodial laborer at [facility], at least fixed 1 or 2 vessels with explanation that possibly patient may further bleed also. Right femoral artery hemostasis will be achieved with manual compression. The ACT is less than 160. Job#: [id number] CHARLES
[2018-01-28] MEDS ORDERED: PANTOPRAZOLE 40 MG 10ML VIAL IV SCH (17:00)
[2018-01-28 18:26] LABS: HEMATOCRIT 25.3 % (38.2-49.6); HEMOGLOBIN 8.2 g/dL (14.0-18.0)
== END 2018-01-28 23:30 | disposition short-term general hospital (02) | DRG 377 ==
LOC: ER 22:19 → ERHOLD 01-24 01:39 → ICU 01-24 03:20
PROVIDERS: ADMIT Internal Medicine; ATTEND Internal Medicine
PROC: 4A023N7 Measurement of Cardiac Sampling and Pressure, Left Heart, Percutaneous Approach (ICD-10-PCS; principal; 2018-01-28)
PROC: B2111ZZ Fluoroscopy of Multiple Coronary Arteries using Low Osmolar Contrast (ICD-10-PCS; 2018-01-28)
DX: K92.2 Gastrointestinal hemorrhage, unspecified (principal); I21.4 Non-ST elevation (NSTEMI) myocardial infarction; N17.9 Acute kidney failure, unspecified; I12.9 Hypertensive chronic kidney disease with stage 1 through stage 4 chronic kidney disease, or unspecified chronic kidney disease; N18.9 Chronic kidney disease, unspecified; I25.10 Atherosclerotic heart disease of native coronary artery without angina pectoris; Z95.5 Presence of coronary angioplasty implant and graft
CPT/HCPCS: 36415; 51700; 71045; 76770; 80053; 81001; 82150; 82270; 82550; 82553; 82948; 83540; 83605; 83690; 83735; 83880; 84132; 84466; 84484; 85014; 85018; 85025; 85610; 85730; 86850; 86900; 86920; 87040; 87086; 87186; 93005; 93306; 93454; 96372; 99284; J1644; J1940; J2001; J2250; J2543; J3480; J7030; J7040; J7050; J7070; P9016; P9034; Q9967

== ENCOUNTER 2020-09-14 21:19 | Emergency (ER) | payer MEDICARE, OTHER ==
[~2020-09-14] VITALS: Ht 167.6 cm; Wt 95.3 kg
[~2020-09-14 21:19] MED LIST changes: +METOPROLOL TAR100 MG PO; +PANTOPRAZOLE SO40 MG PO; +SPIRONOLACTONE25 MG PO
[2020-09-14 21:46] LABS: BASOPHILS # (AUTO) 0.1 (0.0-0.1); BASOPHILS % 0.5 % (0.0-1.0); EOSINOPHILS # (AUTO) 0.2 (0.0-0.4); EOSINOPHILS % 1.4 % (0.0-6.0); HEMATOCRIT 40.7 % (38.2-49.6); HEMOGLOBIN 12.6 g/dL (14.0-18.0); LYMPHOCYTES % 15.1 % (18.0-39.1); MEAN CORPUSCULAR HEMOGLOBIN 26.3 pg (28-32); MONOCYTES % 7.5 % (4.4-11.3); NEUTROPHILS # (AUTO) 9.7 (2.1-6.9); PLATELET COUNT 208 x10e3/uL (140-360); RED BLOOD COUNT 4.79 x10e6/uL (4.3-5.7); RED CELL DISTRIBUTION WIDTH 20.7 % (11.7-14.4)
[2020-09-14 22:06] LABS: ALBUMIN 3.6 g/dL (3.5-5.0); ALBUMIN/GLOBULIN RATIO 0.9 (0.8-2.0); ANION GAP 14.2 mmol/L (8-16); CALCIUM 9.2 mg/dL (8.4-10.2); CREATININE, SERUM 2.22 mg/dL (0.72-1.25); POTASSIUM 4.2 mmol/L (3.5-5.1)
[2020-09-14] MEDS ORDERED: DOXYCYCLINE HY100 MG PO (22:36)
[2020-09-14] MEDS: DOXYCYCLINE HYCLATE TABLET 100 MG TAB PO ONE (22:43)
[2020-09-14] MEDS ORDERED: DOXYCYCLINE HYCLATE TABLET 100 MG TAB ONE (22:50)
[2020-09-14 23:10] VITALS: BP 156/67
== END 2020-09-14 22:56 | disposition home or self-care (01) ==
LOC: ER 22:07
DX: J18.9 Pneumonia, unspecified organism (principal); I10 Essential (primary) hypertension; E11.9 Type 2 diabetes mellitus without complications; I25.2 Old myocardial infarction; K21.9 Gastro-esophageal reflux disease without esophagitis; E78.5 Hyperlipidemia, unspecified; Z20.822 Contact with and (suspected) exposure to COVID-19; Z79.02 Long term (current) use of antithrombotics/antiplatelets; Z79.4 Long term (current) use of insulin; Z86.73 Personal history of transient ischemic attack (TIA), and cerebral infarction without residual deficits
CPT/HCPCS: 36415; 71045; 80053; 83880; 84484; 85025; 99284; U0002

== ENCOUNTER 2020-09-18 13:34 | Inpatient (IN) | payer MEDICARE ==
[~2020-09-18] VITALS: Ht 167.6 cm; Wt 99.1 kg
[~2020-09-18 13:34] MED LIST changes: +DOXYCYCLINE HY100 MG PO
[2020-09-18] MEDS ORDERED: ALBUTEROL/IPRATROPIUM 3 ML NEB NEB ONE (14:15)
[2020-09-18] MEDS: CEFTRIAXONE SOD 1 GM in SODIUM CHLORIDE 0.9% 50ML 50 ML IV SCH (14:49)
[2020-09-18] MEDS: AZITHROMYCIN 500MG/NS 250 ML 250 ML IV SCH (14:50)
[2020-09-18] MEDS ORDERED: CEFTRIAXONE SOD 2 GM in SODIUM CHLORIDE 0.9% 100 ML IV SCH (15:00)
[2020-09-18 15:34] LABS: BASOPHILS # (AUTO) 0.1 (0.0-0.1); BASOPHILS % 0.4 % (0.0-1.0); EOSINOPHILS % 0.1 % (0.0-6.0); HEMATOCRIT 39.6 % (38.2-49.6); HEMOGLOBIN 12.3 g/dL (14.0-18.0); LYMPHOCYTES # (AUTO) 1.2 (1.0-3.2); LYMPHOCYTES % 8.3 % (18.0-39.1); MEAN CORPUSCULAR HEMOGLOBIN 25.8 pg (28-32); MEAN CORPUSCULAR HGB CONC 31.1 g/dL (31-35); MEAN CORPUSCULAR VOLUME 83.2 fL (81-99); MONOCYTES # (AUTO) 1.2 (0.2-0.8); MONOCYTES % 8.2 % (4.4-11.3); NEUTROPHILS # (AUTO) 12.2 (2.1-6.9); NEUTROPHILS % 82.3 % (38.7-80.0); PLATELET COUNT 227 x10e3/uL (140-360); RED BLOOD COUNT 4.76 x10e6/uL (4.3-5.7); RED CELL DISTRIBUTION WIDTH 20.1 % (11.7-14.4)
[2020-09-18 15:39] LABS: INR 1.22; PROTHROMBIN TIME 16.2 seconds (11.9-14.5)
[2020-09-18 15:40] LABS: PARTIAL THROMBOPLASTIN TIME 33.2 seconds (23.8-35.5)
[2020-09-18 15:50] LABS: ALBUMIN 3.4 g/dL (3.5-5.0); ALBUMIN/GLOBULIN RATIO 0.8 (0.8-2.0); ANION GAP 16.9 mmol/L (8-16); CALCIUM 9.2 mg/dL (8.4-10.2); CREATININE, SERUM 2.3 mg/dL (0.72-1.25); MAGNESIUM 1.9 MG/DL (1.3-2.1); POTASSIUM 3.9 mmol/L (3.5-5.1)
[2020-09-18 15:57] LABS: CREATINE KINASE MB 1.3 ng/mL (0-5.0)
[2020-09-18] MEDS: ALBUTEROL SULF 0.083% NEB SOLN 3 ML NEB NEB SCH ×2 (16:00→19:50)
[2020-09-18] MEDS: IPRATROPIUM BROMIDE 0.02% 2.5 ML NEB NEB SCH (19:50)
[2020-09-19] VITALS (7 sets, daily range): BP systolic 129–149; BP diastolic 53–79
[2020-09-19] MEDS: IPRATROPIUM BROMIDE 0.02% 2.5 ML NEB NEB SCH ×4 (00:10→19:45)
[2020-09-19] MEDS: ALBUTEROL SULF 0.083% NEB SOLN 3 ML NEB NEB SCH ×6 (00:10→19:40)
[2020-09-19 08:16] LABS: BASOPHILS % 0.3 % (0.0-1.0); EOSINOPHILS # (AUTO) 0.1 (0.0-0.4); EOSINOPHILS % 0.9 % (0.0-6.0); HEMATOCRIT 35.1 % (38.2-49.6); LYMPHOCYTES # (AUTO) 1.4 (1.0-3.2); LYMPHOCYTES % 11.3 % (18.0-39.1); MEAN CORPUSCULAR HEMOGLOBIN 25.8 pg (28-32); MEAN CORPUSCULAR HGB CONC 31.3 g/dL (31-35); MEAN CORPUSCULAR VOLUME 82.4 fL (81-99); MONOCYTES # (AUTO) 1.2 (0.2-0.8); MONOCYTES % 9.6 % (4.4-11.3); NEUTROPHILS # (AUTO) 9.4 (2.1-6.9); NEUTROPHILS % 77.4 % (38.7-80.0); PLATELET COUNT 212 x10e3/uL (140-360); RED BLOOD COUNT 4.26 x10e6/uL (4.3-5.7); RED CELL DISTRIBUTION WIDTH 19.8 % (11.7-14.4)
[2020-09-19] MEDS: METOPROLOL TARTRATE 25 MG TAB PO SCH ×2 (08:34→17:53)
[2020-09-19] MEDS: CLOPIDOGREL BISULFATE 75 MG TAB PO SCH (08:34)
[2020-09-19] MEDS: AZITHROMYCIN 500MG/NS 250 ML 250 ML IV SCH (08:34)
[2020-09-19] MEDS: PANTOPRAZOLE SOD 40 MG TABEC PO SCH ×2 (08:34→17:53)
[2020-09-19] MEDS: AMLODIPINE BESYLATE 10 MG TAB PO SCH (08:34)
[2020-09-19] MEDS: SPIRONOLACTONE 25 MG TAB PO SCH (08:34)
[2020-09-19 08:38] LABS: ALBUMIN/GLOBULIN RATIO 0.8 (0.8-2.0); ANION GAP 14.7 mmol/L (8-16); CALCIUM 8.5 mg/dL (8.4-10.2); CREATININE, SERUM 2.58 mg/dL (0.72-1.25); POTASSIUM 3.7 mmol/L (3.5-5.1)
[2020-09-19] MEDS ORDERED: SIMVASTATIN 20 MG TAB PO SCH (09:00)
[2020-09-19] MEDS ORDERED: SODIUM CHLORIDE 0.9% 250ML 250 ML ONE (09:11)
[2020-09-19 12:51] LABS: ABG HCO3 23 mmol/L (22-26); ABG PCO2 39 mmHg (35-45); ABG PH 7.38 (7.35-7.45); ABG PO2 91 mmHg (80-105); ABG TCO2 25
[2020-09-19] MEDS ORDERED: DEXTROSE 50% SYRINGE 50 ML IV PRN (13:00)
[2020-09-19] MEDS: HEPARIN SOD (PORCINE) 5,000 UNIT/ML VIAL SC SCH ×2 (13:52→21:09)
[2020-09-19] MEDS ORDERED: CEFTRIAXONE SOD 1 GM VIAL ONE (13:56)
[2020-09-19] MEDS ORDERED: SODIUM CHLORIDE 0.9% 50ML 50 ML ONE (13:58)
[2020-09-19] MEDS: CEFTRIAXONE SOD 1 GM in SODIUM CHLORIDE 0.9% 50ML 50 ML IV SCH (14:13)
[2020-09-19] MEDS: INSULIN REGULAR, HUMAN 100 UNIT/1 ML 3ML VIAL SQ SCH ×2 (17:28→21:09)
[2020-09-19] MEDS: SIMVASTATIN 20 MG TAB PO SCH (20:56)
[2020-09-20] VITALS (8 sets, daily range): BP systolic 113–164; BP diastolic 56–73
[2020-09-20] MEDS: IPRATROPIUM BROMIDE 0.02% 2.5 ML NEB NEB SCH ×4 (01:00→19:25)
[2020-09-20] MEDS: ALBUTEROL SULF 0.083% NEB SOLN 3 ML NEB NEB SCH ×6 (01:00→19:25)
[2020-09-20 04:58] LABS: BASOPHILS # (AUTO) 0.1 (0.0-0.1); BASOPHILS % 0.6 % (0.0-1.0); EOSINOPHILS # (AUTO) 0.2 (0.0-0.4); EOSINOPHILS % 1.9 % (0.0-6.0); HEMATOCRIT 34.7 % (38.2-49.6); HEMOGLOBIN 10.8 g/dL (14.0-18.0); LYMPHOCYTES # (AUTO) 1.6 (1.0-3.2); LYMPHOCYTES % 14.3 % (18.0-39.1); MEAN CORPUSCULAR HEMOGLOBIN 26.2 pg (28-32); MEAN CORPUSCULAR HGB CONC 31.1 g/dL (31-35); MONOCYTES # (AUTO) 1.1 (0.2-0.8); MONOCYTES % 10.4 % (4.4-11.3); NEUTROPHILS # (AUTO) 7.8 (2.1-6.9); NEUTROPHILS % 72.4 % (38.7-80.0); PLATELET COUNT 231 x10e3/uL (140-360); RED BLOOD COUNT 4.13 x10e6/uL (4.3-5.7); RED CELL DISTRIBUTION WIDTH 19.9 % (11.7-14.4)
[2020-09-20 05:22] LABS: ALBUMIN 2.8 g/dL (3.5-5.0); ALBUMIN/GLOBULIN RATIO 0.7 (0.8-2.0); ANION GAP 13.3 mmol/L (8-16); CALCIUM 8.4 mg/dL (8.4-10.2); CREATININE, SERUM 2.72 mg/dL (0.72-1.25); POTASSIUM 4.3 mmol/L (3.5-5.1)
[2020-09-20 08:36] LABS: CLARITY,URINE CLEAR (CLEAR); COLOR,URINE YELLOW (YELLOW)
[2020-09-20 08:37] LABS: KETONES,URINE NEGATIVE (NEGATIVE); LEUKOCYTE ESTERASE ,URINE NEGATIVE (NEGATIVE); NITRITE,URINE NEGATIVE (NEGATIVE); PROTEIN,URINE DIPSTICK NEGATIVE (NEGATIVE); URINE UROBILINOGEN 0.2 mg/dL (0.2 - 1)
[2020-09-20 08:45] LABS: BACTERIA,URINE RARE /HPF; EPITHELIAL CELLS,URINE RARE /LPF; RBC,URINE 0-5 /HPF (0-5); WBC,URINE (MAN) 0-5 /HPF (0-5)
[2020-09-20] MEDS: METOPROLOL TARTRATE 25 MG TAB PO SCH ×2 (09:36→16:09)
[2020-09-20] MEDS: SPIRONOLACTONE 25 MG TAB PO SCH (09:36)
[2020-09-20] MEDS: PANTOPRAZOLE SOD 40 MG TABEC PO SCH ×2 (09:37→16:09)
[2020-09-20] MEDS: AMLODIPINE BESYLATE 10 MG TAB PO SCH (09:37)
[2020-09-20] MEDS: CLOPIDOGREL BISULFATE 75 MG TAB PO SCH (09:37)
[2020-09-20] MEDS: AZITHROMYCIN 500MG/NS 250 ML 250 ML IV SCH (09:50)
[2020-09-20] MEDS: INSULIN REGULAR, HUMAN 100 UNIT/1 ML 3ML VIAL SQ SCH ×4 (09:51→21:00)
[2020-09-20] MEDS: HEPARIN SOD (PORCINE) 5,000 UNIT/ML VIAL SC SCH ×2 (09:51→21:00)
[2020-09-20] MEDS: DEXAMETHASONE 4 MG TAB PO SCH (11:47)
[2020-09-20] MEDS ORDERED: CEFTRIAXONE SOD 1 GM VIAL ONE (14:04)
[2020-09-20] MEDS ORDERED: SODIUM CHLORIDE 0.9% 50ML 50 ML ONE (14:05)
[2020-09-20] MEDS: CEFTRIAXONE SOD 1 GM in SODIUM CHLORIDE 0.9% 50ML 50 ML IV SCH (16:05)
[2020-09-20] MEDS: SIMVASTATIN 20 MG TAB PO SCH (21:46)
[2020-09-21] VITALS (8 sets, daily range): BP systolic 111–147; BP diastolic 63–79
[2020-09-21] MEDS: ALBUTEROL SULF 0.083% NEB SOLN 3 ML NEB NEB SCH ×6 (00:30→21:12)
[2020-09-21] MEDS: IPRATROPIUM BROMIDE 0.02% 2.5 ML NEB NEB SCH ×4 (01:00→18:55)
[2020-09-21] MEDS: INSULIN REGULAR, HUMAN 100 UNIT/1 ML 3ML VIAL SQ SCH ×4 (07:30→21:00)
[2020-09-21] MEDS: AZITHROMYCIN 500MG/NS 250 ML 250 ML IV SCH (08:26)
[2020-09-21] MEDS: AMLODIPINE BESYLATE 10 MG TAB PO SCH (08:27)
[2020-09-21] MEDS: CLOPIDOGREL BISULFATE 75 MG TAB PO SCH (08:27)
[2020-09-21] MEDS: METOPROLOL TARTRATE 25 MG TAB PO SCH ×2 (08:27→17:12)
[2020-09-21] MEDS: SPIRONOLACTONE 25 MG TAB PO SCH (08:27)
[2020-09-21] MEDS: PANTOPRAZOLE SOD 40 MG TABEC PO SCH ×2 (08:28→17:12)
[2020-09-21] MEDS: DEXAMETHASONE 4 MG TAB PO SCH (09:00)
[2020-09-21] MEDS: HEPARIN SOD (PORCINE) 5,000 UNIT/ML VIAL SC SCH ×2 (11:42→21:00)
[2020-09-21] MEDS ORDERED: CEFTRIAXONE SOD 1 GM VIAL ONE (12:44)
[2020-09-21] MEDS ORDERED: SODIUM CHLORIDE 0.9% 100 ML ONE (12:44)
[2020-09-21] MEDS: CEFTRIAXONE SOD 1 GM in SODIUM CHLORIDE 0.9% 50ML 50 ML IV SCH (15:11)
[2020-09-21] MEDS: SIMVASTATIN 20 MG TAB PO SCH (22:45)
[2020-09-22] VITALS (8 sets, daily range): BP systolic 111–159; BP diastolic 63–84
[2020-09-22] MEDS: IPRATROPIUM BROMIDE 0.02% 2.5 ML NEB NEB SCH ×4 (00:40→19:13)
[2020-09-22] MEDS: ALBUTEROL SULF 0.083% NEB SOLN 3 ML NEB NEB SCH ×5 (04:35→19:13)
[2020-09-22] MEDS: INSULIN REGULAR, HUMAN 100 UNIT/1 ML 3ML VIAL SQ SCH ×4 (08:30→21:00)
[2020-09-22] MEDS: HEPARIN SOD (PORCINE) 5,000 UNIT/ML VIAL SC SCH ×2 (09:00→21:00)
[2020-09-22] MEDS: AMLODIPINE BESYLATE 10 MG TAB PO SCH (09:50)
[2020-09-22] MEDS: DEXAMETHASONE 4 MG TAB PO SCH (09:50)
[2020-09-22] MEDS: CLOPIDOGREL BISULFATE 75 MG TAB PO SCH (09:50)
[2020-09-22] MEDS: SPIRONOLACTONE 25 MG TAB PO SCH (09:50)
[2020-09-22] MEDS: PANTOPRAZOLE SOD 40 MG TABEC PO SCH ×2 (09:50→17:29)
[2020-09-22] MEDS: METOPROLOL TARTRATE 25 MG TAB PO SCH ×2 (09:50→17:29)
[2020-09-22] MEDS: AZITHROMYCIN 500MG/NS 250 ML 250 ML IV SCH (09:50)
[2020-09-22] MEDS: FLUCONAZOLE 100 MG TAB PO SCH (09:50)
[2020-09-22 09:56] LABS: BASOPHILS % 0.2 % (0.0-1.0); HEMATOCRIT 32.8 % (38.2-49.6); LYMPHOCYTES # (AUTO) 0.9 (1.0-3.2); LYMPHOCYTES % 6.2 % (18.0-39.1); MEAN CORPUSCULAR HEMOGLOBIN 25.8 pg (28-32); MEAN CORPUSCULAR HGB CONC 30.5 g/dL (31-35); MEAN CORPUSCULAR VOLUME 84.5 fL (81-99); MONOCYTES % 6.9 % (4.4-11.3); NEUTROPHILS # (AUTO) 11.9 (2.1-6.9); PLATELET COUNT 264 x10e3/uL (140-360); RED BLOOD COUNT 3.88 x10e6/uL (4.3-5.7); RED CELL DISTRIBUTION WIDTH 19.6 % (11.7-14.4)
[2020-09-22 10:07] LABS: ANION GAP 14.9 mmol/L (8-16); CALCIUM 8.3 mg/dL (8.4-10.2); CREATININE, SERUM 2.4 mg/dL (0.72-1.25); POTASSIUM 3.9 mmol/L (3.5-5.1)
[2020-09-22] MEDS: CEFTRIAXONE SOD 1 GM in SODIUM CHLORIDE 0.9% 50ML 50 ML IV SCH (16:00)
[2020-09-22] MEDS ORDERED: SODIUM CHLORIDE 0.9% 50ML 50 ML ONE (16:12)
[2020-09-22] MEDS ORDERED: CEFTRIAXONE SOD 1 GM VIAL ONE (16:12)
[2020-09-22] MEDS: SIMVASTATIN 20 MG TAB PO SCH (21:00)
[2020-09-23] VITALS (7 sets, daily range): BP systolic 123–148; BP diastolic 57–68
[2020-09-23] MEDS: IPRATROPIUM BROMIDE 0.02% 2.5 ML NEB NEB SCH ×4 (00:54→19:03)
[2020-09-23] MEDS: ALBUTEROL SULF 0.083% NEB SOLN 3 ML NEB NEB SCH ×6 (00:55→19:03)
[2020-09-23] MEDS: AZITHROMYCIN 500MG/NS 250 ML 250 ML IV SCH (10:35)
[2020-09-23] MEDS: DEXAMETHASONE 4 MG TAB PO SCH (10:35)
[2020-09-23] MEDS: SPIRONOLACTONE 25 MG TAB PO SCH (10:35)
[2020-09-23] MEDS: AMLODIPINE BESYLATE 10 MG TAB PO SCH (10:37)
[2020-09-23] MEDS: FLUCONAZOLE 100 MG TAB PO SCH (10:37)
[2020-09-23] MEDS: PANTOPRAZOLE SOD 40 MG TABEC PO SCH ×2 (10:37→18:16)
[2020-09-23] MEDS: CLOPIDOGREL BISULFATE 75 MG TAB PO SCH (10:37)
[2020-09-23] MEDS: METOPROLOL TARTRATE 25 MG TAB PO SCH ×2 (10:37→18:17)
[2020-09-23] MEDS: INSULIN REGULAR, HUMAN 100 UNIT/1 ML 3ML VIAL SQ SCH ×4 (10:39→21:00)
[2020-09-23] MEDS: HEPARIN SOD (PORCINE) 5,000 UNIT/ML VIAL SC SCH ×2 (10:39→21:00)
[2020-09-23] MEDS ORDERED: CEFTRIAXONE SOD 1 GM VIAL ONE (18:28)
[2020-09-23] MEDS ORDERED: SODIUM CHLORIDE 0.9% 50ML 50 ML ONE (18:30)
[2020-09-23] MEDS: CEFTRIAXONE SOD 1 GM in SODIUM CHLORIDE 0.9% 50ML 50 ML IV SCH (18:30)
[2020-09-23] MEDS: SIMVASTATIN 20 MG TAB PO SCH (21:37)
[2020-09-24] VITALS (8 sets, daily range): BP systolic 125–155; BP diastolic 61–73
[2020-09-24] MEDS: ALBUTEROL SULF 0.083% NEB SOLN 3 ML NEB NEB SCH ×7 (00:20→22:41)
[2020-09-24] MEDS: IPRATROPIUM BROMIDE 0.02% 2.5 ML NEB NEB SCH ×4 (00:38→18:40)
[2020-09-24 05:20] LABS: BASOPHILS % 0.1 % (0.0-1.0); EOSINOPHILS % 0.1 % (0.0-6.0); HEMATOCRIT 35.1 % (38.2-49.6); HEMOGLOBIN 10.7 g/dL (14.0-18.0); LYMPHOCYTES # (AUTO) 0.8 (1.0-3.2); MEAN CORPUSCULAR HEMOGLOBIN 25.8 pg (28-32); MEAN CORPUSCULAR HGB CONC 30.5 g/dL (31-35); MEAN CORPUSCULAR VOLUME 84.8 fL (81-99); MONOCYTES # (AUTO) 0.7 (0.2-0.8); NEUTROPHILS # (AUTO) 11.7 (2.1-6.9); NEUTROPHILS % 86.4 % (38.7-80.0); PLATELET COUNT 256 x10e3/uL (140-360); RED BLOOD COUNT 4.14 x10e6/uL (4.3-5.7); RED CELL DISTRIBUTION WIDTH 19.7 % (11.7-14.4)
[2020-09-24 06:07] LABS: ALBUMIN/GLOBULIN RATIO 0.9 (0.8-2.0); ANION GAP 12.7 mmol/L (8-16); CALCIUM 8.3 mg/dL (8.4-10.2); CREATININE, SERUM 2.29 mg/dL (0.72-1.25); MAGNESIUM 2.4 MG/DL (1.3-2.1)
[2020-09-24 06:27] LABS: POTASSIUM 4.7 mmol/L (3.5-5.1)
[2020-09-24] MEDS: AZITHROMYCIN 500MG/NS 250 ML 250 ML IV SCH (09:30)
[2020-09-24] MEDS: SPIRONOLACTONE 25 MG TAB PO SCH (09:32)
[2020-09-24] MEDS: DEXAMETHASONE 4 MG TAB PO SCH (09:33)
[2020-09-24] MEDS: AMLODIPINE BESYLATE 10 MG TAB PO SCH (09:33)
[2020-09-24] MEDS: PANTOPRAZOLE SOD 40 MG TABEC PO SCH ×2 (09:33→16:53)
[2020-09-24] MEDS: CLOPIDOGREL BISULFATE 75 MG TAB PO SCH (09:33)
[2020-09-24] MEDS: METOPROLOL TARTRATE 25 MG TAB PO SCH ×2 (09:33→16:53)
[2020-09-24] MEDS: FLUCONAZOLE 100 MG TAB PO SCH (09:33)
[2020-09-24] MEDS: HEPARIN SOD (PORCINE) 5,000 UNIT/ML VIAL SC SCH ×2 (10:18→22:00)
[2020-09-24] MEDS: INSULIN REGULAR, HUMAN 100 UNIT/1 ML 3ML VIAL SQ SCH ×4 (10:18→22:00)
[2020-09-24] MEDS: CEFTRIAXONE SOD 1 GM in SODIUM CHLORIDE 0.9% 50ML 50 ML IV SCH (14:37)
[2020-09-24] MEDS ORDERED: CEFTRIAXONE SOD 1 GM VIAL ONE (14:43)
[2020-09-24] MEDS ORDERED: SODIUM CHLORIDE 0.9% 50ML 50 ML ONE (14:44)
[2020-09-24] MEDS: SIMVASTATIN 20 MG TAB PO SCH (22:00)
[2020-09-25] VITALS: BP 134/66
[2020-09-25] MEDS: ALBUTEROL SULF 0.083% NEB SOLN 3 ML NEB NEB SCH ×6 (03:10→23:30)
[2020-09-25] MEDS: IPRATROPIUM BROMIDE 0.02% 2.5 ML NEB NEB SCH ×4 (03:10→19:05)
[2020-09-25 04:00] VITALS: BP 128/68
[2020-09-25 08:04] VITALS: BP 149/66
[2020-09-25] MEDS: AZITHROMYCIN 500MG/NS 250 ML 250 ML IV SCH (10:09)
[2020-09-25] MEDS: SPIRONOLACTONE 25 MG TAB PO SCH (10:09)
[2020-09-25] MEDS: METOPROLOL TARTRATE 25 MG TAB PO SCH ×2 (10:10→16:42)
[2020-09-25] MEDS: DEXAMETHASONE 4 MG TAB PO SCH (10:10)
[2020-09-25] MEDS: FLUCONAZOLE 100 MG TAB PO SCH (10:10)
[2020-09-25] MEDS: PANTOPRAZOLE SOD 40 MG TABEC PO SCH ×2 (10:11→16:42)
[2020-09-25] MEDS: CLOPIDOGREL BISULFATE 75 MG TAB PO SCH (10:11)
[2020-09-25] MEDS: AMLODIPINE BESYLATE 10 MG TAB PO SCH (10:11)
[2020-09-25] MEDS: HEPARIN SOD (PORCINE) 5,000 UNIT/ML VIAL SC SCH ×2 (10:11→22:00)
[2020-09-25] MEDS: INSULIN REGULAR, HUMAN 100 UNIT/1 ML 3ML VIAL SQ SCH ×4 (10:17→22:00)
[2020-09-25 11:42] VITALS: BP 151/66
[2020-09-25 15:59] VITALS: BP 143/61
[2020-09-25] MEDS: CEFTRIAXONE SOD 1 GM in SODIUM CHLORIDE 0.9% 50ML 50 ML IV SCH (16:40)
[2020-09-25 19:49] VITALS: BP 132/67
[2020-09-25] MEDS: SIMVASTATIN 20 MG TAB PO SCH (22:00)
[2020-09-26] VITALS (7 sets, daily range): BP systolic 132–161; BP diastolic 63–79
[2020-09-26] MEDS: ALBUTEROL SULF 0.083% NEB SOLN 3 ML NEB NEB SCH ×3 (03:00→10:15)
[2020-09-26] MEDS: IPRATROPIUM BROMIDE 0.02% 2.5 ML NEB NEB SCH ×3 (03:00→10:15)
[2020-09-26] MEDS: INSULIN REGULAR, HUMAN 100 UNIT/1 ML 3ML VIAL SQ SCH ×2 (07:30→11:30)
[2020-09-26] MEDS: FLUCONAZOLE 100 MG TAB PO SCH (08:34)
[2020-09-26] MEDS: AMLODIPINE BESYLATE 10 MG TAB PO SCH (08:34)
[2020-09-26] MEDS: SPIRONOLACTONE 25 MG TAB PO SCH (08:34)
[2020-09-26] MEDS: DEXAMETHASONE 4 MG TAB PO SCH (08:34)
[2020-09-26] MEDS: CLOPIDOGREL BISULFATE 75 MG TAB PO SCH (08:34)
[2020-09-26] MEDS: PANTOPRAZOLE SOD 40 MG TABEC PO SCH (08:34)
[2020-09-26] MEDS: METOPROLOL TARTRATE 25 MG TAB PO SCH (08:34)
[2020-09-26] MEDS: HEPARIN SOD (PORCINE) 5,000 UNIT/ML VIAL SC SCH (08:38)
== END 2020-09-26 13:22 | disposition home or self-care (01) | DRG 193 ==
LOC: ER 15:31 → ERHOLD 15:41 → MED/SURG3 09-19 00:41
PROVIDERS: ADMIT Internal Medicine; ATTEND Internal Medicine
DX: J15.9 Unspecified bacterial pneumonia (principal); J96.01 Acute respiratory failure with hypoxia; Z20.822 Contact with and (suspected) exposure to COVID-19; E78.00 Pure hypercholesterolemia, unspecified; K21.9 Gastro-esophageal reflux disease without esophagitis; E11.22 Type 2 diabetes mellitus with diabetic chronic kidney disease; I12.9 Hypertensive chronic kidney disease with stage 1 through stage 4 chronic kidney disease, or unspecified chronic kidney disease; N18.30 Chronic kidney disease, stage 3 unspecified; I25.10 Atherosclerotic heart disease of native coronary artery without angina pectoris; Z95.5 Presence of coronary angioplasty implant and graft; Z86.73 Personal history of transient ischemic attack (TIA), and cerebral infarction without residual deficits; E66.9 Obesity, unspecified; Z68.35 Body mass index [BMI] 35.0-35.9, adult
CPT/HCPCS: 36415; 36600; 71045; 71250; 80048; 80053; 81001; 82550; 82553; 82805; 82948; 83735; 83880; 84484; 85025; 85610; 85730; 86021; 86039; 86738; 87040; 87070; 87086; 87205; 87449; 93005; 93306; 94640; 96372; 99251; 99284; J0456; J0696; J1644; J1817; J7050; U0002

== ENCOUNTER → 2020-10-24 | Outpatient (CLI) | payer MEDICARE, OTHER ==
[~2020-10-24] MED LIST changes: +COVID-19 VACC, MRNA(MODERNA)/PF 100 MCG/0.5 ML VIAL IM ONE
== END | disposition home or self-care (01) ==
LOC: VACCPMC 11:05
DX: Z23 Encounter for immunization (principal); Z20.822 Contact with and (suspected) exposure to COVID-19
CPT/HCPCS: 91301

== ENCOUNTER → 2020-10-30 | Outpatient (CLI) | payer MEDICARE ==
[~2020-10-30] MED LIST changes: -COVID-19 VACC, MRNA(MODERNA)/PF 100 MCG/0.5 ML VIAL IM ONE
== END ==
LOC: CT 16:06
PROVIDERS: ATTEND Internal Medicine
DX: Z87.01 Personal history of pneumonia (recurrent) (principal)
CPT/HCPCS: 71250

== ENCOUNTER → 2020-11-21 | Outpatient (CLI) | payer MEDICARE, OTHER ==
[~2020-11-21] MED LIST changes: +COVID-19 VACC, MRNA(MODERNA)/PF 100 MCG/0.5 ML VIAL IM ONE
== END | disposition home or self-care (01) ==
LOC: VACCPMC 09:00
DX: Z23 Encounter for immunization (principal); Z20.822 Contact with and (suspected) exposure to COVID-19
CPT/HCPCS: 91301

== ENCOUNTER 2021-12-12 19:49 | Inpatient (IN) | payer MEDICARE, OTHER ==
[~2021-12-12] VITALS: Ht 167.6 cm; Wt 90.3 kg
[~2021-12-12 19:49] MED LIST changes: -COVID-19 VACC, MRNA(MODERNA)/PF 100 MCG/0.5 ML VIAL IM ONE
[2021-12-12] MEDS ORDERED: DEXTROSE 5%/0.45% SOD CHL 1,000 ML IV STA (20:53)
[2021-12-12 21:45] LABS: BASOPHILS % 0.3 % (0.0-1.0); EOSINOPHILS % 0.3 % (0.0-6.0); HEMOGLOBIN 13.6 g/dL (14.0-18.0); LYMPHOCYTES # (AUTO) 1.1 (1.0-3.2); LYMPHOCYTES % 11.8 % (18.0-39.1); MEAN CORPUSCULAR HEMOGLOBIN 24.4 pg (28-32); MEAN CORPUSCULAR HGB CONC 30.2 g/dL (31-35); MEAN CORPUSCULAR VOLUME 80.6 fL (81-99); MONOCYTES # (AUTO) 0.5 (0.2-0.8); MONOCYTES % 5.3 % (4.4-11.3); NEUTROPHILS # (AUTO) 7.5 (2.1-6.9); NEUTROPHILS % 82.1 % (38.7-80.0); PLATELET COUNT 158 x10e3/uL (140-360); RED BLOOD COUNT 5.58 x10e6/uL (4.3-5.7); RED CELL DISTRIBUTION WIDTH 22.7 % (11.7-14.4)
[2021-12-12 21:59] LABS: ALBUMIN 4.1 g/dL (3.5-5.0); ALBUMIN/GLOBULIN RATIO 1.1 (0.8-2.0); ANION GAP 18.4 mmol/L (8-16); CALCIUM 8.8 mg/dL (8.4-10.2); CREATININE, SERUM 5.46 mg/dL (0.72-1.25)
[2021-12-12 22:01] LABS: POTASSIUM 6.4 mmol/L (3.5-5.1)
[2021-12-12 22:14] LABS: CREATINE KINASE MB 1.4 ng/mL (0-5.0)
[2021-12-12] MEDS ORDERED: SOD POLYSTYRENE SULFONATE SUSP 15 GM/60 ML BTL PO STA (22:26)
[2021-12-12] MEDS ORDERED: ALBUTEROL SULF 0.083% NEB SOLN 3 ML NEB NEB STA (22:26)
[2021-12-12] MEDS ORDERED: FUROSEMIDE INJ 10 MG/ML 4 ML VIAL IV STA (22:26)
[2021-12-12] MEDS ORDERED: DEXTROSE 50% SYRINGE 50 ML IV STA (22:26)
[2021-12-12] MEDS ORDERED: CALCIUM GLUCONATE 10% INJ 0.465 MEQ/ML VIAL IV STA (22:26)
[2021-12-12] MEDS ORDERED: SODIUM BICARBONATE 8.4% INJ 50 ML SYR IV STA (22:26)
[2021-12-12] MEDS ORDERED: DEXTROSE 50% SYRINGE 50 ML IV ONE (22:28)
[2021-12-12] MEDS ORDERED: SOD POLYSTYRENE SULFONATE SUSP 15 GM/60 ML BTL PO ONE (22:45)
[2021-12-13] VITALS (29 sets, daily range): BP systolic 96–150; BP diastolic 36–67
[2021-12-13] MEDS ORDERED: CALCIUM GLUC 1 G/50 ML NACL 0 ML IV ONE (00:44)
[2021-12-13] MEDS ORDERED: GLIMEPIRIDE2 MG PO (01:53)
[2021-12-13] MEDS ORDERED: ELIQUIS2.5 MG PO (01:53)
[2021-12-13] MEDS ORDERED: ASPIRIN325 MG PO (01:54)
[2021-12-13] MEDS: INSULIN REGULAR, HUMAN 100 UNIT/1 ML SQ SCH ×6 (02:43→23:00)
[2021-12-13 05:02] LABS: BASOPHILS % 0.3 % (0.0-1.0); EOSINOPHILS # (AUTO) 0.1 (0.0-0.4); EOSINOPHILS % 0.6 % (0.0-6.0); HEMATOCRIT 41.1 % (38.2-49.6); HEMOGLOBIN 12.4 g/dL (14.0-18.0); LYMPHOCYTES # (AUTO) 1.4 (1.0-3.2); LYMPHOCYTES % 16.1 % (18.0-39.1); MEAN CORPUSCULAR HEMOGLOBIN 24.1 pg (28-32); MEAN CORPUSCULAR HGB CONC 30.2 g/dL (31-35); MEAN CORPUSCULAR VOLUME 79.8 fL (81-99); MONOCYTES # (AUTO) 0.7 (0.2-0.8); MONOCYTES % 8.2 % (4.4-11.3); NEUTROPHILS # (AUTO) 6.4 (2.1-6.9); NEUTROPHILS % 74.3 % (38.7-80.0); PLATELET COUNT 151 x10e3/uL (140-360); RED BLOOD COUNT 5.15 x10e6/uL (4.3-5.7); RED CELL DISTRIBUTION WIDTH 21.7 % (11.7-14.4)
[2021-12-13 05:34] LABS: ALBUMIN 3.3 g/dL (3.5-5.0); ALBUMIN/GLOBULIN RATIO 0.9 (0.8-2.0); CALCIUM 7.9 mg/dL (8.4-10.2); CREATININE, SERUM 4.99 mg/dL (0.72-1.25)
[2021-12-13] MEDS: DEXTROSE 50% SYRINGE 50 ML IV PRN ×4 (05:50→15:02)
[2021-12-13] MEDS: DEXTROSE 5%/0.45% SOD CHL 1,000 ML IV SCH ×3 (05:54→21:42)
[2021-12-13] MEDS: PANTOPRAZOLE SOD 40 MG TABEC PO SCH (05:54)
[2021-12-13] MEDS ORDERED: DEXTROSE 5%/0.45% SOD CHL 1,000 ML IV ONE (05:54)
[2021-12-13] MEDS ORDERED: INSULIN REGULAR, HUMAN 100 UNIT/1 ML SQ SCH (07:30)
[2021-12-13] MEDS: SIMVASTATIN 20 MG TAB PO SCH (08:03)
[2021-12-13] MEDS: ASPIRIN 325 MG TAB PO SCH (08:03)
[2021-12-13] MEDS ORDERED: DEXTROSE 10% 1,000 ML IV PRN (10:30)
[2021-12-13 11:46] LABS: FREE THYROXINE INDEX 2.3745 (1.4-3.8); THYROID STIMULATING HORMONE 1.458 uIU/mL (0.350-4.940)
[2021-12-13] MEDS ORDERED: HEPARIN SOD (PORCINE) 1000 UNIT/ML SDV ONE (13:17)
[2021-12-13] MEDS ORDERED: HEPARIN SOD (PORCINE) 1000 UNIT/ML SDV IV PRN (16:30)
[2021-12-13] MEDS ORDERED: MANNITOL 25% 12.5GM/50 ML VIAL IV PRN ×2 (16:30)
[2021-12-13] MEDS ORDERED: SODIUM CHLORIDE 0.9% 1000ML 2,000 ML IV PRN (16:30)
[2021-12-13] MEDS ORDERED: SODIUM CHLORIDE 0.9% 1000ML 2,000 ML ONE (16:31)
[2021-12-13 17:38] LABS: CLARITY,URINE SL CLOUDY (CLEAR); COLOR,URINE YELLOW (YELLOW); KETONES,URINE NEGATIVE (NEGATIVE); LEUKOCYTE ESTERASE ,URINE NEGATIVE (NEGATIVE); NITRITE,URINE NEGATIVE (NEGATIVE); PROTEIN,URINE DIPSTICK NEGATIVE (NEGATIVE); URINE UROBILINOGEN 0.2 mg/dL (0.2 - 1)
[2021-12-13] MEDS: HEPARIN SOD (PORCINE) 5,000 UNIT/ML VIAL SC SCH (21:30)
[2021-12-14] VITALS (23 sets, daily range): BP systolic 103–171; BP diastolic 49–98
[2021-12-14] MEDS: INSULIN REGULAR, HUMAN 100 UNIT/1 ML SQ SCH ×5 (03:00→21:15)
[2021-12-14 04:58] LABS: BASOPHILS # (AUTO) 0.1 (0.0-0.1); BASOPHILS % 0.6 % (0.0-1.0); EOSINOPHILS # (AUTO) 0.2 (0.0-0.4); HEMATOCRIT 37.5 % (38.2-49.6); HEMOGLOBIN 11.7 g/dL (14.0-18.0); LYMPHOCYTES # (AUTO) 1.6 (1.0-3.2); LYMPHOCYTES % 17.6 % (18.0-39.1); MEAN CORPUSCULAR HEMOGLOBIN 24.3 pg (28-32); MEAN CORPUSCULAR HGB CONC 31.2 g/dL (31-35); MONOCYTES # (AUTO) 0.8 (0.2-0.8); MONOCYTES % 9.5 % (4.4-11.3); NEUTROPHILS # (AUTO) 6.2 (2.1-6.9); PLATELET COUNT 133 x10e3/uL (140-360); RED BLOOD COUNT 4.81 x10e6/uL (4.3-5.7)
[2021-12-14 05:18] LABS: ALBUMIN 2.9 g/dL (3.5-5.0); ALBUMIN/GLOBULIN RATIO 0.9 (0.8-2.0); ANION GAP 13.2 mmol/L (8-16); CALCIUM 7.5 mg/dL (8.4-10.2); CREATININE, SERUM 2.57 mg/dL (0.72-1.25); POTASSIUM 5.2 mmol/L (3.5-5.1)
[2021-12-14] MEDS: DEXTROSE 5%/0.45% SOD CHL 1,000 ML IV SCH (05:45)
[2021-12-14] MEDS: PANTOPRAZOLE SOD 40 MG TABEC PO SCH (07:06)
[2021-12-14] MEDS: AMLODIPINE BESYLATE 10 MG TAB PO SCH (08:01)
[2021-12-14] MEDS: ASPIRIN 325 MG TAB PO SCH (08:01)
[2021-12-14] MEDS: SIMVASTATIN 20 MG TAB PO SCH (08:02)
[2021-12-14] MEDS: HEPARIN SOD (PORCINE) 5,000 UNIT/ML VIAL SC SCH ×2 (08:03→21:15)
[2021-12-14] MEDS ORDERED: INSULIN REGULAR, HUMAN 100 UNIT/1 ML SQ SCH (11:30)
[2021-12-15] VITALS (8 sets, daily range): BP systolic 124–151; BP diastolic 63–67
[2021-12-15 06:45] LABS: ANION GAP 14.5 mmol/L (8-16); CALCIUM 8.6 mg/dL (8.4-10.2); CREATININE, SERUM 2.41 mg/dL (0.72-1.25); POTASSIUM 4.5 mmol/L (3.5-5.1)
[2021-12-15] MEDS: PANTOPRAZOLE SOD 40 MG TABEC PO SCH (06:51)
[2021-12-15] MEDS: INSULIN REGULAR, HUMAN 100 UNIT/1 ML SQ SCH ×4 (07:30→20:33)
[2021-12-15] MEDS: SIMVASTATIN 20 MG TAB PO SCH (08:44)
[2021-12-15] MEDS: AMLODIPINE BESYLATE 10 MG TAB PO SCH (08:44)
[2021-12-15] MEDS: ASPIRIN 325 MG TAB PO SCH (08:44)
[2021-12-15] MEDS: HEPARIN SOD (PORCINE) 5,000 UNIT/ML VIAL SC SCH ×2 (09:00→20:33)
[2021-12-16] VITALS (8 sets, daily range): BP systolic 118–158; BP diastolic 66–72
[2021-12-16 06:43] LABS: ALBUMIN 3.1 g/dL (3.5-5.0); ALBUMIN/GLOBULIN RATIO 0.9 (0.8-2.0); ANION GAP 15.6 mmol/L (8-16); CALCIUM 8.3 mg/dL (8.4-10.2); CREATININE, SERUM 2.45 mg/dL (0.72-1.25); MAGNESIUM 1.8 MG/DL (1.3-2.1); POTASSIUM 4.6 mmol/L (3.5-5.1)
[2021-12-16] MEDS: PANTOPRAZOLE SOD 40 MG TABEC PO SCH (06:58)
[2021-12-16 07:05] LABS: BASOPHILS # (AUTO) 0.1 (0.0-0.1); BASOPHILS % 0.7 % (0.0-1.0); EOSINOPHILS # (AUTO) 0.2 (0.0-0.4); EOSINOPHILS % 2.7 % (0.0-6.0); HEMOGLOBIN 12.4 g/dL (14.0-18.0); LYMPHOCYTES # (AUTO) 1.8 (1.0-3.2); LYMPHOCYTES % 21.2 % (18.0-39.1); MEAN CORPUSCULAR HEMOGLOBIN 24.3 pg (28-32); MEAN CORPUSCULAR HGB CONC 30.2 g/dL (31-35); MEAN CORPUSCULAR VOLUME 80.2 fL (81-99); MONOCYTES # (AUTO) 0.8 (0.2-0.8); MONOCYTES % 9.6 % (4.4-11.3); NEUTROPHILS # (AUTO) 5.7 (2.1-6.9); NEUTROPHILS % 65.5 % (38.7-80.0); PLATELET COUNT 111 x10e3/uL (140-360); RED BLOOD COUNT 5.11 x10e6/uL (4.3-5.7); RED CELL DISTRIBUTION WIDTH 23.1 % (11.7-14.4)
[2021-12-16] MEDS: INSULIN REGULAR, HUMAN 100 UNIT/1 ML SQ SCH ×4 (07:30→22:05)
[2021-12-16] MEDS: ASPIRIN 325 MG TAB PO SCH (08:49)
[2021-12-16] MEDS: SIMVASTATIN 20 MG TAB PO SCH (08:50)
[2021-12-16] MEDS: AMLODIPINE BESYLATE 10 MG TAB PO SCH (08:50)
[2021-12-16] MEDS: HEPARIN SOD (PORCINE) 5,000 UNIT/ML VIAL SC SCH ×2 (09:00→20:42)
[2021-12-17] VITALS (7 sets, daily range): BP systolic 136–163; BP diastolic 70–79
[2021-12-17] MEDS: PANTOPRAZOLE SOD 40 MG TABEC PO SCH (05:24)
[2021-12-17 05:41] LABS: BASOPHILS % 0.4 % (0.0-1.0); EOSINOPHILS # (AUTO) 0.2 (0.0-0.4); EOSINOPHILS % 2.2 % (0.0-6.0); HEMATOCRIT 39.2 % (38.2-49.6); HEMOGLOBIN 12.1 g/dL (14.0-18.0); LYMPHOCYTES # (AUTO) 1.7 (1.0-3.2); LYMPHOCYTES % 17.9 % (18.0-39.1); MEAN CORPUSCULAR HEMOGLOBIN 24.5 pg (28-32); MEAN CORPUSCULAR HGB CONC 30.9 g/dL (31-35); MEAN CORPUSCULAR VOLUME 79.5 fL (81-99); MONOCYTES # (AUTO) 0.8 (0.2-0.8); MONOCYTES % 8.1 % (4.4-11.3); NEUTROPHILS # (AUTO) 6.8 (2.1-6.9); PLATELET COUNT 124 x10e3/uL (140-360); RED BLOOD COUNT 4.93 x10e6/uL (4.3-5.7); RED CELL DISTRIBUTION WIDTH 22.6 % (11.7-14.4)
[2021-12-17 06:00] LABS: ANION GAP 11.1 mmol/L (8-16); CALCIUM 8.9 mg/dL (8.4-10.2); CREATININE, SERUM 2.24 mg/dL (0.72-1.25); POTASSIUM 5.1 mmol/L (3.5-5.1)
[2021-12-17] MEDS: INSULIN REGULAR, HUMAN 100 UNIT/1 ML SQ SCH ×4 (07:30→21:00)
[2021-12-17] MEDS: ASPIRIN 325 MG TAB PO SCH (08:39)
[2021-12-17] MEDS: SIMVASTATIN 20 MG TAB PO SCH (08:40)
[2021-12-17] MEDS: AMLODIPINE BESYLATE 10 MG TAB PO SCH (08:40)
[2021-12-17] MEDS: HEPARIN SOD (PORCINE) 5,000 UNIT/ML VIAL SC SCH ×2 (08:42→21:22)
[2021-12-17] MEDS ORDERED: SOD POLYSTYRENE SULFONATE SUSP 15 GM/60 ML BTL PO ONE (13:30)
[2021-12-18 00:54] VITALS: BP 143/83
[2021-12-18 05:46] VITALS: BP 160/82
[2021-12-18 06:03] LABS: BASOPHILS # (AUTO) 0.1 (0.0-0.1); BASOPHILS % 0.7 % (0.0-1.0); EOSINOPHILS # (AUTO) 0.2 (0.0-0.4); EOSINOPHILS % 2.1 % (0.0-6.0); HEMATOCRIT 43.1 % (38.2-49.6); HEMOGLOBIN 12.3 g/dL (14.0-18.0); LYMPHOCYTES # (AUTO) 1.7 (1.0-3.2); LYMPHOCYTES % 18.8 % (18.0-39.1); MEAN CORPUSCULAR HEMOGLOBIN 24.5 pg (28-32); MEAN CORPUSCULAR HGB CONC 28.5 g/dL (31-35); MEAN CORPUSCULAR VOLUME 85.7 fL (81-99); MONOCYTES # (AUTO) 0.8 (0.2-0.8); MONOCYTES % 8.9 % (4.4-11.3); NEUTROPHILS # (AUTO) 6.2 (2.1-6.9); NEUTROPHILS % 68.9 % (38.7-80.0); PLATELET COUNT 133 x10e3/uL (140-360); RED BLOOD COUNT 5.03 x10e6/uL (4.3-5.7); RED CELL DISTRIBUTION WIDTH 23.9 % (11.7-14.4)
[2021-12-18] MEDS: PANTOPRAZOLE SOD 40 MG TABEC PO SCH (06:13)
[2021-12-18 07:48] LABS: ALBUMIN/GLOBULIN RATIO 0.8 (0.8-2.0); ANION GAP 11.7 mmol/L (8-16); CALCIUM 8.5 mg/dL (8.4-10.2); CREATININE, SERUM 2.08 mg/dL (0.72-1.25); POTASSIUM 4.7 mmol/L (3.5-5.1)
[2021-12-18 08:22] VITALS: BP 129/57
[2021-12-18] MEDS: ASPIRIN 325 MG TAB PO SCH (08:45)
[2021-12-18] MEDS: SIMVASTATIN 20 MG TAB PO SCH (08:45)
[2021-12-18] MEDS: AMLODIPINE BESYLATE 10 MG TAB PO SCH (08:45)
[2021-12-18] MEDS: HEPARIN SOD (PORCINE) 5,000 UNIT/ML VIAL SC SCH (08:53)
[2021-12-18] MEDS: INSULIN REGULAR, HUMAN 100 UNIT/1 ML SQ SCH ×2 (08:53→11:30)
[2021-12-18] MEDS ORDERED: GUAIFENESIN 600 MG TAB PO SCH (10:15)
[2021-12-18 11:48] VITALS: BP 127/61
[2021-12-18 13:23] LABS: TOTAL PROTEIN, URINE 14.4 mg/dL (1-14)
[2021-12-18 13:27] LABS: TOTAL PROTEIN 24HR, URINE 129.6 mg/24hr (50-100)
[2021-12-18 16:08] VITALS: BP 152/76
== END 2021-12-18 16:00 | disposition home or self-care (01) | DRG 637 ==
LOC: ER 19:53 → ERHOLD 21:01 → OBSVTOIN 22:34 → ICU 12-13 01:24 → MED/SURG3 12-14 17:35
PROVIDERS: ADMIT Internal Medicine; ATTEND Internal Medicine
PROC: 02HV33Z Insertion of Infusion Device into Superior Vena Cava, Percutaneous Approach (ICD-10-PCS; principal; 2021-12-13)
PROC: 5A1D70Z Performance of Urinary Filtration, Intermittent, Less than 6 Hours Per Day (ICD-10-PCS; 2021-12-13)
DX: E11.649 Type 2 diabetes mellitus with hypoglycemia without coma (principal); G93.41 Metabolic encephalopathy; N17.9 Acute kidney failure, unspecified; E87.5 Hyperkalemia; E11.22 Type 2 diabetes mellitus with diabetic chronic kidney disease; I12.9 Hypertensive chronic kidney disease with stage 1 through stage 4 chronic kidney disease, or unspecified chronic kidney disease; N18.30 Chronic kidney disease, stage 3 unspecified; Z82.49 Family history of ischemic heart disease and other diseases of the circulatory system; E78.5 Hyperlipidemia, unspecified; D64.9 Anemia, unspecified; E66.9 Obesity, unspecified; I69.398 Other sequelae of cerebral infarction; I25.10 Atherosclerotic heart disease of native coronary artery without angina pectoris; E03.9 Hypothyroidism, unspecified; M19.90 Unspecified osteoarthritis, unspecified site; N25.89 Other disorders resulting from impaired renal tubular function; R26.89 Other abnormalities of gait and mobility; Z80.9 Family history of malignant neoplasm, unspecified; Z95.5 Presence of coronary angioplasty implant and graft; T38.3X5A Adverse effect of insulin and oral hypoglycemic [antidiabetic] drugs, initial encounter; Z83.3 Family history of diabetes mellitus; Z79.84 Long term (current) use of oral hypoglycemic drugs; Z68.32 Body mass index [BMI] 32.0-32.9, adult; Z85.46 Personal history of malignant neoplasm of prostate; Z79.82 Long term (current) use of aspirin; Z79.01 Long term (current) use of anticoagulants; Z20.822 Contact with and (suspected) exposure to COVID-19
CPT/HCPCS: 36415; 36556; 70450; 71045; 72125; 74470; 76770; 76937; 80048; 80053; 81001; 81050; 82550; 82553; 82948; 83735; 84156; 84436; 84443; 84479; 84484; 85025; 85730; 86022; 86705; 86706; 87340; 90962; 93005; 94640; 94799; 96372; 97139; 99251; 99284; J0610; J1644; J1817; J1940; J2150; J7030; J7799; U0002

== ENCOUNTER 2022-01-14 15:35 | Inpatient (IN) | payer MEDICARE ==
[~2022-01-14] VITALS: Ht 162.6 cm; Wt 84.4 kg
[~2022-01-14 15:35] MED LIST changes: +ELIQUIS2.5 MG PO
[2022-01-14] MEDS ORDERED: SODIUM CHLORIDE 0.9% 500ML 500 ML IV ONE (17:15)
[2022-01-14 17:20] LABS: BASOPHILS % 0.1 % (0.0-1.0); HEMOGLOBIN 12.4 g/dL (14.0-18.0); LYMPHOCYTES # (AUTO) 1.4 (1.0-3.2); LYMPHOCYTES % 8.3 % (18.0-39.1); MEAN CORPUSCULAR HEMOGLOBIN 24.8 pg (28-32); MEAN CORPUSCULAR HGB CONC 30.2 g/dL (31-35); MONOCYTES # (AUTO) 1.1 (0.2-0.8); MONOCYTES % 6.5 % (4.4-11.3); NEUTROPHILS # (AUTO) 13.9 (2.1-6.9); NEUTROPHILS % 84.3 % (38.7-80.0); PLATELET COUNT 171 x10e3/uL (140-360); RED CELL DISTRIBUTION WIDTH 24.9 % (11.7-14.4)
[2022-01-14 17:26] LABS: CLARITY,URINE SL CLOUDY (CLEAR); COLOR,URINE YELLOW (YELLOW); KETONES,URINE NEGATIVE (NEGATIVE); LEUKOCYTE ESTERASE ,URINE NEGATIVE (NEGATIVE); NITRITE,URINE NEGATIVE (NEGATIVE); PROTEIN,URINE DIPSTICK NEGATIVE (NEGATIVE); URINE UROBILINOGEN 0.2 mg/dL (0.2 - 1)
[2022-01-14 17:39] LABS: BACTERIA,URINE FEW /HPF; EPITHELIAL CELLS,URINE FEW /LPF; RBC,URINE 0-5 /HPF (0-5)
[2022-01-14 17:40] LABS: ALBUMIN 3.6 g/dL (3.5-5.0); ANION GAP 16.4 mmol/L (8-16); CALCIUM 8.9 mg/dL (8.4-10.2); CREATININE, SERUM 4.34 mg/dL (0.72-1.25)
[2022-01-14 17:47] LABS: CREATINE KINASE MB 5.2 ng/mL (0-5.0)
[2022-01-14 17:55] LABS: POTASSIUM 6.4 mmol/L (3.5-5.1)
[2022-01-14] MEDS ORDERED: ALBUTEROL SULF 0.083% NEB SOLN 3 ML NEB NEB STA (18:01)
[2022-01-14] MEDS ORDERED: DEXTROSE 50% SYRINGE 50 ML IV STA (18:01)
[2022-01-14] MEDS ORDERED: INSULIN REGULAR, HUMAN 100 UNIT/1 ML SQ ONE (18:15)
[2022-01-14] MEDS ORDERED: DEXTROSE 50% SYRINGE 50 ML IV ONE (18:23)
[2022-01-14] MEDS ORDERED: Morphine 4mg INJECTION 4 MG/ML INJ IV PRN (18:30)
[2022-01-14] MEDS ORDERED: ONDANSETRON HCL INJ 2MG/ML 2ML 2 MG/ML VIAL IV PRN (18:30)
[2022-01-14] MEDS: SODIUM CHLORIDE 0.9% 1000ML 1,000 ML IV SCH (18:34)
[2022-01-14 20:30] VITALS: BP 133/67
[2022-01-14 21:00] VITALS: BP 133/67
[2022-01-15] VITALS (8 sets, daily range): BP systolic 122–152; BP diastolic 62–72
[2022-01-15] MEDS ORDERED: HYDRALAZINE HCL25 MG PO (01:13)
[2022-01-15] MEDS ORDERED: LISINOPRIL40 MG PO (01:13)
[2022-01-15] MEDS ORDERED: ISOSORBIDE MONO60 MG PO (01:13)
[2022-01-15] MEDS ORDERED: ASPIRIN81 MG PO (01:13)
[2022-01-15] MEDS ORDERED: PANTOPRAZOLE SO40 MG PO (01:13)
[2022-01-15] MEDS ORDERED: ALLOPURINOL100 MG PO (01:13)
[2022-01-15] MEDS ORDERED: ATORVASTATIN CA40 MG PO (01:13)
[2022-01-15] MEDS ORDERED: ELIQUIS2.5 MG PO (01:13)
[2022-01-15] MEDS: SODIUM CHLORIDE 0.9% 1000ML 1,000 ML IV SCH ×2 (03:30→10:04)
[2022-01-15 03:52] LABS: BASOPHILS % 0.1 % (0.0-1.0); HEMATOCRIT 37.3 % (38.2-49.6); HEMOGLOBIN 11.4 g/dL (14.0-18.0); LYMPHOCYTES # (AUTO) 1.6 (1.0-3.2); LYMPHOCYTES % 11.5 % (18.0-39.1); MEAN CORPUSCULAR HEMOGLOBIN 25.1 pg (28-32); MEAN CORPUSCULAR HGB CONC 30.6 g/dL (31-35); MEAN CORPUSCULAR VOLUME 82.2 fL (81-99); MONOCYTES # (AUTO) 0.8 (0.2-0.8); MONOCYTES % 5.7 % (4.4-11.3); NEUTROPHILS # (AUTO) 11.5 (2.1-6.9); NEUTROPHILS % 82.3 % (38.7-80.0); PLATELET COUNT 143 x10e3/uL (140-360); RED BLOOD COUNT 4.54 x10e6/uL (4.3-5.7)
[2022-01-15 04:08] LABS: CREATINE KINASE MB 2.4 ng/mL (0-5.0)
[2022-01-15 04:46] LABS: ALBUMIN 3.2 g/dL (3.5-5.0); ANION GAP 16.4 mmol/L (8-16); CALCIUM 8.4 mg/dL (8.4-10.2); CREATININE, SERUM 3.56 mg/dL (0.72-1.25); MAGNESIUM 1.8 MG/DL (1.3-2.1)
[2022-01-15 04:48] LABS: POTASSIUM 6.4 mmol/L (3.5-5.1)
[2022-01-15] MEDS ORDERED: SOD POLYSTYRENE SULFONATE SUSP 15 GM/60 ML BTL PO ONE (05:30)
[2022-01-15] MEDS ORDERED: INSULIN LISPRO 100 UNIT/1 ML 3ML VIAL SQ SCH (06:45)
[2022-01-15] MEDS ORDERED: DEXTROSE 50% SYRINGE 50 ML IV ONE (06:45)
[2022-01-15] MEDS ORDERED: SODIUM BICARBONATE 8.4% INJ 50 ML SYR IV ONE (07:35)
[2022-01-15] MEDS ORDERED: ALBUTEROL SULF 0.083% NEB SOLN 3 ML NEB NEB ONE (07:35)
[2022-01-15 08:21] LABS: ANION GAP 14.7 mmol/L (8-16); CALCIUM 8.9 mg/dL (8.4-10.2); CREATININE, SERUM 3.1 mg/dL (0.72-1.25); POTASSIUM 5.7 mmol/L (3.5-5.1)
[2022-01-15 11:36] LABS: CREATINE KINASE MB 2.8 ng/mL (0-5.0)
[2022-01-15 13:42] LABS: ANION GAP 14.7 mmol/L (8-16); CALCIUM 8.8 mg/dL (8.4-10.2); CREATININE, SERUM 2.82 mg/dL (0.72-1.25); POTASSIUM 5.7 mmol/L (3.5-5.1)
[2022-01-15 14:16] LABS: ALBUMIN 3.4 g/dL (3.5-5.0); ALBUMIN/GLOBULIN RATIO 0.9 (0.8-2.0); ANION GAP 14.7 mmol/L (8-16); CALCIUM 8.8 mg/dL (8.4-10.2); CREATININE, SERUM 2.85 mg/dL (0.72-1.25); POTASSIUM 5.7 mmol/L (3.5-5.1)
[2022-01-15] MEDS ORDERED: SOD POLYSTYRENE SULFONATE SUSP 15 GM/60 ML BTL PO STA (14:32)
[2022-01-15] MEDS ORDERED: LACTULOSE SYRUP 20 GM/30 ML UDC PO ONE (14:45)
[2022-01-15] MEDS: SODIUM BICARBONATE 650 MG TAB PO SCH ×2 (16:45→21:45)
[2022-01-16] VITALS (7 sets, daily range): BP systolic 136–149; BP diastolic 66–117
[2022-01-16 06:27] LABS: BASOPHILS % 0.2 % (0.0-1.0); EOSINOPHILS # (AUTO) 0.1 (0.0-0.4); EOSINOPHILS % 0.7 % (0.0-6.0); HEMATOCRIT 41.2 % (38.2-49.6); HEMOGLOBIN 12.5 g/dL (14.0-18.0); LYMPHOCYTES % 9.6 % (18.0-39.1); MEAN CORPUSCULAR HEMOGLOBIN 25.1 pg (28-32); MEAN CORPUSCULAR HGB CONC 30.3 g/dL (31-35); MEAN CORPUSCULAR VOLUME 82.6 fL (81-99); MONOCYTES # (AUTO) 0.8 (0.2-0.8); MONOCYTES % 7.6 % (4.4-11.3); NEUTROPHILS # (AUTO) 8.4 (2.1-6.9); NEUTROPHILS % 81.2 % (38.7-80.0); PLATELET COUNT 150 x10e3/uL (140-360); RED BLOOD COUNT 4.99 x10e6/uL (4.3-5.7); RED CELL DISTRIBUTION WIDTH 25.3 % (11.7-14.4)
[2022-01-16 06:54] LABS: ALBUMIN 3.4 g/dL (3.5-5.0); ALBUMIN/GLOBULIN RATIO 1.1 (0.8-2.0); ANION GAP 14.8 mmol/L (8-16); CALCIUM 8.4 mg/dL (8.4-10.2); CREATININE, SERUM 2.29 mg/dL (0.72-1.25); POTASSIUM 4.8 mmol/L (3.5-5.1)
[2022-01-16] MEDS: SODIUM BICARBONATE 650 MG TAB PO SCH ×3 (09:18→21:28)
[2022-01-16] MEDS ORDERED: SIMETHICONE 80 MG CHEW PO PRN (15:15)
[2022-01-16] MEDS ORDERED: DEXTROSE 50% SYRINGE 50 ML IV PRN (16:00)
[2022-01-16] MEDS: INSULIN LISPRO 100 UNIT/1 ML 3ML VIAL SQ SCH ×2 (17:38→21:00)
[2022-01-16] MEDS: DEXTROSE 5% 1,000 ML IV SCH (18:59)
[2022-01-16] MEDS: PANTOPRAZOLE SOD 40 MG TABEC PO SCH (21:00)
[2022-01-17] VITALS (9 sets, daily range): BP systolic 144–194; BP diastolic 65–91
[2022-01-17] MEDS: DEXTROSE 5% 1,000 ML IV SCH ×3 (03:07→23:25)
[2022-01-17 07:09] LABS: BASOPHILS # (AUTO) 0.1 (0.0-0.1); BASOPHILS % 0.5 % (0.0-1.0); EOSINOPHILS # (AUTO) 0.2 (0.0-0.4); EOSINOPHILS % 1.6 % (0.0-6.0); HEMATOCRIT 37.1 % (38.2-49.6); HEMOGLOBIN 11.3 g/dL (14.0-18.0); LYMPHOCYTES # (AUTO) 1.6 (1.0-3.2); LYMPHOCYTES % 13.8 % (18.0-39.1); MEAN CORPUSCULAR HEMOGLOBIN 24.7 pg (28-32); MEAN CORPUSCULAR HGB CONC 30.5 g/dL (31-35); MEAN CORPUSCULAR VOLUME 81.2 fL (81-99); MONOCYTES # (AUTO) 0.9 (0.2-0.8); MONOCYTES % 7.5 % (4.4-11.3); NEUTROPHILS # (AUTO) 8.6 (2.1-6.9); NEUTROPHILS % 75.6 % (38.7-80.0); PLATELET COUNT 142 x10e3/uL (140-360); RED BLOOD COUNT 4.57 x10e6/uL (4.3-5.7); RED CELL DISTRIBUTION WIDTH 24.5 % (11.7-14.4)
[2022-01-17] MEDS: INSULIN LISPRO 100 UNIT/1 ML 3ML VIAL SQ SCH ×4 (07:45→21:16)
[2022-01-17] MEDS: PANTOPRAZOLE SOD 40 MG TABEC PO SCH (07:50)
[2022-01-17 08:19] LABS: ALBUMIN 2.8 g/dL (3.5-5.0); ALBUMIN/GLOBULIN RATIO 0.9 (0.8-2.0); CALCIUM 7.9 mg/dL (8.4-10.2); CREATININE, SERUM 1.55 mg/dL (0.72-1.25)
[2022-01-17] MEDS: SODIUM BICARBONATE 650 MG TAB PO SCH ×3 (08:50→21:15)
[2022-01-18] VITALS (7 sets, daily range): BP systolic 141–184; BP diastolic 69–94
[2022-01-18 07:53] LABS: BASOPHILS # (AUTO) 0.1 (0.0-0.1); BASOPHILS % 0.4 % (0.0-1.0); EOSINOPHILS # (AUTO) 0.2 (0.0-0.4); EOSINOPHILS % 1.8 % (0.0-6.0); HEMATOCRIT 36.9 % (38.2-49.6); HEMOGLOBIN 11.6 g/dL (14.0-18.0); LYMPHOCYTES % 17.2 % (18.0-39.1); MEAN CORPUSCULAR HEMOGLOBIN 25.1 pg (28-32); MEAN CORPUSCULAR HGB CONC 31.4 g/dL (31-35); MEAN CORPUSCULAR VOLUME 79.7 fL (81-99); MONOCYTES # (AUTO) 0.7 (0.2-0.8); MONOCYTES % 6.2 % (4.4-11.3); NEUTROPHILS # (AUTO) 8.4 (2.1-6.9); NEUTROPHILS % 73.4 % (38.7-80.0); PLATELET COUNT 131 x10e3/uL (140-360); RED BLOOD COUNT 4.63 x10e6/uL (4.3-5.7); RED CELL DISTRIBUTION WIDTH 24.1 % (11.7-14.4)
[2022-01-18 08:45] LABS: ALBUMIN 2.6 g/dL (3.5-5.0); ALBUMIN/GLOBULIN RATIO 0.8 (0.8-2.0); ANION GAP 10.6 mmol/L (8-16); CALCIUM 8.1 mg/dL (8.4-10.2); CREATININE, SERUM 1.51 mg/dL (0.72-1.25); POTASSIUM 3.6 mmol/L (3.5-5.1)
[2022-01-18] MEDS: DEXTROSE 5% 1,000 ML IV SCH ×2 (09:29→18:21)
[2022-01-18] MEDS: PANTOPRAZOLE SOD 40 MG TABEC PO SCH (09:30)
[2022-01-18] MEDS: SODIUM BICARBONATE 650 MG TAB PO SCH ×3 (09:30→21:05)
[2022-01-18] MEDS: INSULIN LISPRO 100 UNIT/1 ML 3ML VIAL SQ SCH ×4 (09:38→21:05)
[2022-01-18] MEDS ORDERED: NIFEDIPINE CR 30 MG TAB PO ONE (10:30)
[2022-01-18] MEDS ORDERED: NIFEDIPINE CR 30 MG TAB PO SCH (17:00)
[2022-01-19] VITALS: BP 124/65
[2022-01-19] MEDS: DEXTROSE 5% 1,000 ML IV SCH (03:55)
[2022-01-19 04:00] VITALS: BP 131/71
[2022-01-19 07:35] VITALS: BP 155/82
[2022-01-19 08:30] VITALS: BP 155/82
== END 2022-01-19 10:31 | disposition home or self-care (01) | DRG 683 ==
LOC: ER 15:55 → ERHOLD 18:17 → MED/SURG2 20:44
PROVIDERS: ADMIT Internal Medicine; ATTEND Internal Medicine
DX: N17.9 Acute kidney failure, unspecified (principal); I69.351 Hemiplegia and hemiparesis following cerebral infarction affecting right dominant side; E87.5 Hyperkalemia; E11.22 Type 2 diabetes mellitus with diabetic chronic kidney disease; I12.9 Hypertensive chronic kidney disease with stage 1 through stage 4 chronic kidney disease, or unspecified chronic kidney disease; N25.89 Other disorders resulting from impaired renal tubular function; N18.32 Chronic kidney disease, stage 3b; K21.9 Gastro-esophageal reflux disease without esophagitis; E66.9 Obesity, unspecified; Z68.31 Body mass index [BMI] 31.0-31.9, adult; Z95.5 Presence of coronary angioplasty implant and graft; Z20.822 Contact with and (suspected) exposure to COVID-19; Z79.82 Long term (current) use of aspirin
CPT/HCPCS: 36415; 71045; 76770; 80048; 80053; 81001; 82550; 82553; 82948; 83735; 83880; 84484; 85025; 93005; 93306; 94640; 94799; 96361; 99283; J1817; J7030; J7040; J7070; J7799

== ENCOUNTER → 2022-09-04 | Outpatient (CLI) | payer MEDICARE ==
[~2022-09-04] MED LIST changes: +ALLOPURINOL100 MG PO; +ASPIRIN81 MG PO; +ATORVASTATIN CA40 MG PO; +HYDRALAZINE HCL25 MG PO; +ISOSORBIDE MONO60 MG PO; +LISINOPRIL40 MG PO
== END ==
LOC: CARD 09:55
PROVIDERS: ATTEND Internal Medicine
DX: I79.8 Other disorders of arteries, arterioles and capillaries in diseases classified elsewhere (principal)
CPT/HCPCS: 93925

== ENCOUNTER 2023-06-08 11:09 | Emergency (ER) | payer MEDICARE ==
[~2023-06-08] VITALS: Ht 162.6 cm; Wt 84.4 kg
[2023-06-08 11:43] LABS: BASOPHILS % 0.3 % (0.0-1.0); EOSINOPHILS # (AUTO) 0.1 (0.0-0.4); EOSINOPHILS % 0.4 % (0.0-6.0); LYMPHOCYTES # (AUTO) 1.7 (1.0-3.2); LYMPHOCYTES % 12.7 % (18.0-39.1); MEAN CORPUSCULAR HEMOGLOBIN 25.7 pg (28-32); MEAN CORPUSCULAR HGB CONC 31.7 g/dL (31-35); MONOCYTES # (AUTO) 0.9 (0.2-0.8); MONOCYTES % 6.4 % (4.4-11.3); NEUTROPHILS # (AUTO) 10.5 (2.1-6.9); PLATELET COUNT 222 x10e3/uL (140-360); RED BLOOD COUNT 5.06 x10e6/uL (4.3-5.7); RED CELL DISTRIBUTION WIDTH 20.8 % (11.7-14.4); WHITE BLOOD COUNT 13.35 x10e3/uL (4.8-10.8)
[2023-06-08] MEDS ORDERED: ONDANSETRON HCL INJ 2MG/ML 2ML 2 MG/ML VIAL IV STA (11:45)
[2023-06-08] MEDS ORDERED: SODIUM CHLORIDE 0.9% 500ML 500 ML IV ONE (11:45)
[2023-06-08] MEDS ORDERED: DONNATAL/LIDOCAINE/MAALOX 30 ML SUSP PO ONE (12:00)
[2023-06-08 12:08] LABS: ALBUMIN 3.3 g/dL (3.5-5.0); ALBUMIN/GLOBULIN RATIO 0.9 (0.8-2.0); ANION GAP 14.2 mmol/L (8-16); CALCIUM 9.3 mg/dL (8.4-10.2); CREATININE, SERUM 2.05 mg/dL (0.72-1.25); POTASSIUM 4.2 mmol/L (3.5-5.1)
[2023-06-08] MEDS ORDERED: LIDOCAINE VISC 2% SOLN 15 ML UDC PO ONE (12:15)
[2023-06-08] MEDS ORDERED: BELLADONNA ALK/PHENOBARBITAL 5 ML UDC PO ONE (12:15)
[2023-06-08] MEDS ORDERED: MAGNESIUM/ALUMINUM/SIMETHICONE 30 ML UDC PO ONE (12:15)
[2023-06-08 13:38] VITALS: O2SAT 99
== END 2023-06-08 14:35 | disposition home or self-care (01) ==
LOC: ER 11:15
DX: R10.13 Epigastric pain (principal); I10 Essential (primary) hypertension; E11.9 Type 2 diabetes mellitus without complications; I69.351 Hemiplegia and hemiparesis following cerebral infarction affecting right dominant side; Z95.5 Presence of coronary angioplasty implant and graft
CPT/HCPCS: 36415; 71045; 74176; 80053; 83690; 83735; 84484; 85025; 93005; 99284; C9113; J2405; J7040

== ENCOUNTER 2024-12-23 13:16 | Inpatient (IN) | payer MEDICARE ==
[~2024-12-23] VITALS: Ht 162.6 cm; Wt 83.9 kg
[2024-12-23] MEDS ORDERED: VANCOMYCIN HCL 1.25 GM in SODIUM CHLORIDE 0.9% 250ML 250 ML IV SCH (13:45)
[2024-12-23 14:17] LABS: BASOPHILS % 0.2 % (0.0-1.0); EOSINOPHILS % 0.2 % (0.0-6.0); LYMPHOCYTES % 7.8 % (18.0-39.1); MONOCYTES % 7.2 % (4.4-11.3); NEUTROPHILS % 82.9 % (38.7-80.0); RED CELL DISTRIBUTION WIDTH 26.4 % (11.7-14.4)
[2024-12-23 14:33] LABS: EST GLOMERULAR FILTRATION RATE 23.0 ML/MIN (>=60)
[2024-12-23 14:35] LABS: INR 1.12
[2024-12-23] MEDS: VANCOMYCIN HCL 1.25 GM in SODIUM CHLORIDE 0.9% 250ML 250 ML IV SCH (15:11)
[2024-12-23] MEDS: LACTULOSE SYRUP 20 GM/30 ML UDC PO ONE (15:40)
[2024-12-23] MEDS: SODIUM BICARBONATE 8.4% INJ 50 ML SYR IV STA (15:41)
[2024-12-23] MEDS: ALBUTEROL SULF 0.083% NEB SOLN 3 ML NEB NEB STA (15:41)
[2024-12-23] MEDS: DEXTROSE 50% SYRINGE 50 ML IV STA (15:42)
[2024-12-23] MEDS: INSULIN REGULAR, HUMAN 100 UNIT/1 ML IV ONE (15:43)
[2024-12-23] MEDS ORDERED: ONDANSETRON HCL INJ 2MG/ML 2ML 2 MG/ML VIAL IV PRN (16:15)
[2024-12-23] MEDS ORDERED: SODIUM CHLORIDE FLUSH 10 ML SYR INJ PRN (16:15)
[2024-12-23 16:36] VITALS: PULSE 97; RESP 18; TEMP 98.7
[2024-12-23] MEDS ORDERED: VANCOMYCIN HCL 1.25 GM VIAL IV ONE (17:00)
[2024-12-23 17:23] VITALS: BP 129/84; PULSE 95; RESP 19; TEMP 98.4; O2SAT 100
[2024-12-23] MEDS ORDERED: GLIMEPIRIDE2 MG PO (17:25)
[2024-12-23 17:28] VITALS: BP 129/84; PULSE 95; RESP 19; TEMP 98.4; O2SAT 100
[2024-12-23] MEDS: CALCIUM GLUCONATE 10% INJ 9.3 MEQ in SODIUM CHLORIDE 0.9% 100 ML IV ONE (18:23)
[2024-12-23] MEDS: TRAMADOL HCL 50 MG TAB PO PRN (18:23)
[2024-12-23 20:00] VITALS: BP 135/49; PULSE 86; RESP 18; TEMP 98.2; O2SAT 100
[2024-12-24] VITALS (7 sets, daily range): BP systolic 158–183; BP diastolic 62–80; PULSE 84–94; RESP 17–20; TEMP 97.7–98.7; O2SAT 97–100
[2024-12-24] MEDS: GUAIFENESIN 200 MG/10 ML UDC PO PRN (04:19)
[2024-12-24 05:38] LABS: BASOPHILS % 0.1 % (0.0-1.0); EOSINOPHILS % 0.3 % (0.0-6.0); LYMPHOCYTES % 9.1 % (18.0-39.1); MONOCYTES % 6.7 % (4.4-11.3); NEUTROPHILS % 82.3 % (38.7-80.0); RED CELL DISTRIBUTION WIDTH 26.2 % (11.7-14.4)
[2024-12-24 06:16] LABS: EST GLOMERULAR FILTRATION RATE 28.0 ML/MIN (>=60)
[2024-12-24] MEDS: APIXABAN 2.5 MG TABLET PO SCH (15:48)
[2024-12-24] MEDS: GLIMEPIRIDE 2 MG TAB PO SCH (15:48)
[2024-12-24] MEDS: HYDRALAZINE HCL 25 MG TAB PO SCH (15:48)
[2024-12-24] MEDS: METOPROLOL TARTRATE 50 MG TAB PO SCH (15:48)
[2024-12-24] MEDS: ATORVASTATIN 40 MG TAB PO SCH (21:13)
[2024-12-25] VITALS (9 sets, daily range): BP systolic 127–174; BP diastolic 60–90; PULSE 76–92; RESP 18–21; TEMP 98.3–98.8; O2SAT 100
[2024-12-25] MEDS: ASPIRIN 81 MG CHEW TAB PO SCH (08:43)
[2024-12-25] MEDS: PANTOPRAZOLE SOD 40 MG TABEC PO SCH (08:43)
[2024-12-25] MEDS: AMLODIPINE BESYLATE 10 MG TAB PO SCH (08:44)
[2024-12-25] MEDS: ALLOPURINOL 100 MG TAB PO SCH (08:44)
[2024-12-25 10:35] LABS: EST GLOMERULAR FILTRATION RATE 33.0 ML/MIN (>=60)
[2024-12-25] MEDS: LIDOCAINE 4% PATCH TP SCH (17:44)
[2024-12-26 03:13] VITALS: BP 149/69; PULSE 76; RESP 20; TEMP 98.8; O2SAT 100
[2024-12-26 05:32] LABS: BASOPHILS % 0.1 % (0.0-1.0); EOSINOPHILS % 0.6 % (0.0-6.0); LYMPHOCYTES % 9.6 % (18.0-39.1); MONOCYTES % 6.8 % (4.4-11.3); NEUTROPHILS % 81.5 % (38.7-80.0); RED CELL DISTRIBUTION WIDTH 25.3 % (11.7-14.4)
[2024-12-26 05:42] LABS: EST GLOMERULAR FILTRATION RATE 36.0 ML/MIN (>=60)
[2024-12-26 08:06] VITALS: BP 152/60; PULSE 80; RESP 19; TEMP 98.7; O2SAT 98
[2024-12-26] MEDS: ALLOPURINOL 100 MG TAB PO SCH (08:23)
[2024-12-26 09:00] VITALS: BP 152/60; PULSE 80; RESP 19; TEMP 98.7; O2SAT 98
[2024-12-26 11:29] VITALS: BP 166/84; PULSE 77; RESP 20; TEMP 98.8; O2SAT 99
[2024-12-26] MEDS ORDERED: DEXTROSE 50% SYRINGE 50 ML IV PRN (12:45)
[2024-12-26 15:27] LABS: % IRON SATURATION 6 % (15-50)
[2024-12-26 15:59] VITALS: BP 170/75; PULSE 82; RESP 20; TEMP 97.2; O2SAT 97
[2024-12-26] MEDS: Vancomycin IV 1 GM in SODIUM CHLORIDE 0.9% 250ML 250 ML IV SCH (16:20)
[2024-12-26] MEDS: GLIMEPIRIDE 2 MG TAB PO SCH (16:24)
[2024-12-26] MEDS: INSULIN LISPRO 100 UNIT/1 ML 3ML VIAL SQ SCH (16:30)
[2024-12-26 20:00] VITALS: BP 135/51; PULSE 89; RESP 20; TEMP 98.4; O2SAT 98
[2024-12-26] MEDS: APIXABAN 2.5 MG TABLET PO SCH (21:21)
[2024-12-27] VITALS (7 sets, daily range): BP systolic 146–179; BP diastolic 59–96; PULSE 75–82; RESP 16–20; TEMP 98–99.5; O2SAT 97–100
[2024-12-27 05:58] LABS: BASOPHILS % 0.1 % (0.0-1.0); EOSINOPHILS % 0.4 % (0.0-6.0); LYMPHOCYTES % 10.3 % (18.0-39.1); MONOCYTES % 6.9 % (4.4-11.3); NEUTROPHILS % 81.0 % (38.7-80.0); RED CELL DISTRIBUTION WIDTH 24.9 % (11.7-14.4)
[2024-12-27 06:14] LABS: EST GLOMERULAR FILTRATION RATE 33.0 ML/MIN (>=60)
[2024-12-27 09:41] LABS: PLATELET ESTIMATE MODERATELY DECREASED; PLATELET MORPHOLOGY COMMENT NORMAL; RBC MORPHOLOGY COMMENT ABNORMAL
[2024-12-28] VITALS (8 sets, daily range): BP systolic 120–172; BP diastolic 57–76; PULSE 74–86; RESP 18–20; TEMP 98.3–99.5; O2SAT 96–100
[2024-12-28 05:43] LABS: EST GLOMERULAR FILTRATION RATE 33.0 ML/MIN (>=60)
[2024-12-28] MEDS: SODIUM BICARBONATE 650 MG TAB PO SCH (09:17)
[2024-12-28] MEDS: IRON SUCROSE 100 MG in SODIUM CHLORIDE 0.9% 100 ML IV ONE (09:17)
[2024-12-28] MEDS: FUROSEMIDE 40 MG TAB PO ONE (09:19)
[2024-12-28 09:37] LABS: LEUKOCYTE ESTERASE ,URINE TRACE (NEGATIVE); PROTEIN,URINE DIPSTICK 1+ (NEGATIVE); URINE UROBILINOGEN 0.2 mg/dL (0.2 - 1)
[2024-12-28 09:49] LABS: EPITHELIAL CELLS,URINE RARE /LPF; WBC,URINE (MAN) 0-5 /HPF (0-5)
[2024-12-29] VITALS (7 sets, daily range): BP systolic 144–180; BP diastolic 57–67; PULSE 71–88; RESP 18–20; TEMP 98–99; O2SAT 96–100
[2024-12-29 05:43] LABS: BASOPHILS % 0.3 % (0.0-1.0); EOSINOPHILS % 1.0 % (0.0-6.0); LYMPHOCYTES % 14.8 % (18.0-39.1); MONOCYTES % 6.9 % (4.4-11.3); NEUTROPHILS % 73.5 % (38.7-80.0); RED CELL DISTRIBUTION WIDTH 24.9 % (11.7-14.4)
[2024-12-29 06:26] LABS: EST GLOMERULAR FILTRATION RATE 40.0 ML/MIN (>=60)
[2024-12-29 09:02] LABS: EOSINOPHILS % (MANUAL) 2 % (0-7); LYMPHOCYTES % (MANUAL) 13 % (19-48); MONOCYTES % (MANUAL) 8 % (3.4-9.0); MYELOCYTES % (MANUAL) 1 % (0-0); NEUTROPHILS % (MANUAL) 75 % (40-74); NUCLEATED RED BLOOD CELLS 1; REACTIVE LYMPHOCYTES 1
[2024-12-29 09:03] LABS: PLATELET ESTIMATE SLIGHTLY DECREASED; PLATELET MORPHOLOGY COMMENT NORMAL; RBC MORPHOLOGY COMMENT NORMAL
[2024-12-29] MEDS: FUROSEMIDE 40 MG TAB PO ONE (09:19)
[2024-12-29] MEDS: Vancomycin IV 1 GM in SODIUM CHLORIDE 0.9% 250ML 250 ML IV SCH (14:42)
[2024-12-29] MEDS: NYSTATIN 15 GM POWDER UD BTL TOP SCH (16:46)
[2024-12-30] VITALS (11 sets, daily range): BP systolic 107–153; BP diastolic 57–66; PULSE 71–91; RESP 16–18; TEMP 98–99.1; O2SAT 98–100
[2024-12-30 06:08] LABS: EST GLOMERULAR FILTRATION RATE 36.0 ML/MIN (>=60)
[2024-12-30] MEDS: FUROSEMIDE 40 MG TAB PO ONE (12:33)
[2024-12-30] MEDS: LINEZOLID 600 MG/D5W 300ML 300 ML IV SCH (12:48)
[2024-12-31 03:06] VITALS: BP 141/64; PULSE 77; RESP 17; TEMP 97.9; O2SAT 100
[2024-12-31 09:00] VITALS: BP 168/67; PULSE 84; RESP 20; TEMP 98.5
[2024-12-31 11:30] VITALS: BP_SYST 142; BP_DIAS 16; BP_DIAS 56; PULSE 84; RESP 18; TEMP 98.4
[2024-12-31 15:21] LABS: BASOPHILS % 0.2 % (0.0-1.0); EOSINOPHILS % 1.4 % (0.0-6.0); LYMPHOCYTES % 16.2 % (18.0-39.1); MONOCYTES % 9.6 % (4.4-11.3); NEUTROPHILS % 68.9 % (38.7-80.0); RED CELL DISTRIBUTION WIDTH 25.9 % (11.7-14.4)
[2024-12-31 15:50] LABS: EST GLOMERULAR FILTRATION RATE 28.0 ML/MIN (>=60)
[2024-12-31 16:00] VITALS: BP 162/64; PULSE 78; RESP 16; TEMP 98.1; O2SAT 100
[2024-12-31 20:05] VITALS: BP 144/57; PULSE 78; RESP 18; TEMP 98.1; O2SAT 97
[2024-12-31 23:44] VITALS: BP 141/66; PULSE 76; RESP 18; TEMP 98.2; O2SAT 100
[2025-01-01] VITALS (7 sets, daily range): BP systolic 142–156; BP diastolic 60–72; PULSE 74–84; RESP 18–20; TEMP 97.6–98.6; O2SAT 99–100
[2025-01-01 06:16] LABS: EST GLOMERULAR FILTRATION RATE 29.0 ML/MIN (>=60)
[2025-01-01] MEDS: BENZONATATE 100 MG CAP PO SCH (08:18)
[2025-01-02] VITALS (7 sets, daily range): BP systolic 132–160; BP diastolic 56–78; PULSE 74–85; RESP 16–20; TEMP 97.5–99.3; O2SAT 98–99
[2025-01-02 12:56] LABS: EST GLOMERULAR FILTRATION RATE 32.0 ML/MIN (>=60)
[2025-01-02] MEDS: BUMETANIDE INJ 0.25MG/ML 4ML VIAL IV SCH (13:48)
[2025-01-03] VITALS (10 sets, daily range): BP systolic 131–156; BP diastolic 51–81; PULSE 70–82; RESP 16–20; TEMP 97.5–98.8; O2SAT 94–100
[2025-01-03 06:16] LABS: EST GLOMERULAR FILTRATION RATE 29.0 ML/MIN (>=60)
[2025-01-03] MEDS: ALBUTEROL/IPRATROPIUM 3 ML NEB NEB SCH (15:56)
[2025-01-04] VITALS (12 sets, daily range): BP systolic 124–157; BP diastolic 56–65; PULSE 77–88; RESP 17–22; TEMP 98–98.6; O2SAT 94–100
[2025-01-04] MEDS: BUDESONIDE 0.25 MG/2 ML NEB NEB SCH (00:13)
[2025-01-04] MEDS: ALBUTEROL/IPRATROPIUM 3 ML NEB ONE (06:15)
[2025-01-04 08:43] LABS: BASOPHILS % 0.5 % (0.0-1.0); EOSINOPHILS % 1.0 % (0.0-6.0); LYMPHOCYTES % 16.7 % (18.0-39.1); MONOCYTES % 7.9 % (4.4-11.3); NEUTROPHILS % 72.7 % (38.7-80.0); RED CELL DISTRIBUTION WIDTH 25.7 % (11.7-14.4)
[2025-01-04 08:57] LABS: EST GLOMERULAR FILTRATION RATE 25.0 ML/MIN (>=60)
[2025-01-04 10:03] LABS: EOSINOPHILS % (MANUAL) 2 % (0-7); LYMPHOCYTES % (MANUAL) 11 % (19-48); MONOCYTES % (MANUAL) 8 % (3.4-9.0); NEUTROPHILS % (MANUAL) 79 % (40-74)
[2025-01-04 10:04] LABS: PLATELET ESTIMATE SLIGHTLY INCREASED; PLATELET MORPHOLOGY COMMENT NORMAL
[2025-01-04 10:05] LABS: INR 0.95
[2025-01-04] MEDS ORDERED: TRAMADOL HCL 50 MG TAB PO PRN (14:30)
[2025-01-05] VITALS (12 sets, daily range): BP systolic 140–158; BP diastolic 57–65; PULSE 59–87; RESP 16–20; TEMP 97.8–98.7; O2SAT 95–100
[2025-01-05] MEDS: IRON SUCROSE 100 MG in SODIUM CHLORIDE 0.9% 100 ML IV SCH (17:35)
[2025-01-06] VITALS (10 sets, daily range): BP systolic 139–161; BP diastolic 58–76; PULSE 78–87; RESP 17–20; TEMP 97.3–98.2; O2SAT 94–100
[2025-01-06] MEDS: BUMETANIDE 1 MG TAB PO SCH (09:17)
[2025-01-06 11:14] LABS: EST GLOMERULAR FILTRATION RATE 28.0 ML/MIN (>=60)
[2025-01-06] MEDS: SODIUM BICARBONATE 650 MG TAB PO SCH (17:03)
[2025-01-06] MEDS: METHYLPREDNISOLONE SOD SUCC 40 MG/ML VIAL 1ML IV SCH (21:16)
[2025-01-07] VITALS (12 sets, daily range): BP systolic 96–160; BP diastolic 57–88; PULSE 60–97; RESP 18–20; TEMP 97.9–98.9; O2SAT 96–100
[2025-01-07 06:46] LABS: EST GLOMERULAR FILTRATION RATE 24.0 ML/MIN (>=60)
[2025-01-08] VITALS (12 sets, daily range): BP systolic 111–159; BP diastolic 57–70; PULSE 91–97; RESP 18–22; TEMP 97.7–98.4; O2SAT 90–100
[2025-01-08 01:18] LABS: CREATININE,URINE RANDOM 230.77 mg/dL (63-166); TOTAL PROTEIN, URINE 26.4 mg/dL (1-14)
[2025-01-08 06:55] LABS: BASOPHILS % 0.1 % (0.0-1.0); EOSINOPHILS % 0.0 % (0.0-6.0); LYMPHOCYTES % 6.6 % (18.0-39.1); MONOCYTES % 3.3 % (4.4-11.3); NEUTROPHILS % 88.0 % (38.7-80.0); RED CELL DISTRIBUTION WIDTH 25.0 % (11.7-14.4)
[2025-01-08 07:13] LABS: EST GLOMERULAR FILTRATION RATE 16.0 ML/MIN (>=60)
[2025-01-08 10:37] LABS: % IRON SATURATION 48 % (15-50)
[2025-01-08] MEDS: FUROSEMIDE INJ 10 MG/ML 4 ML VIAL IV ONE (17:53)
[2025-01-09] VITALS (35 sets, daily range): BP systolic 120–157; BP diastolic 54–99; PULSE 83–101; RESP 12–33; TEMP 98.3–98.5; O2SAT 93–100
[2025-01-09] MEDS: SODIUM CHLORIDE 0.9% 250ML 250 ML IV ONE ×2 (01:39→17:23)
[2025-01-09 02:11] LABS: ABG PH 7.38 (7.35-7.45)
[2025-01-09 02:12] LABS: ABG BASE EXCESS -6.0 mmol/L (-2 - 3); ABG HCO3 20 mmol/L (22-26); ABG OXYGEN SATURATION 90.0 % (95-98); ABG PCO2 33 mmHg (35-45); ABG PO2 58 mmHg (80-105); ABG TCO2 20
[2025-01-09 05:09] LABS: BASOPHILS % 0.1 % (0.0-1.0); EOSINOPHILS % 0.0 % (0.0-6.0); LYMPHOCYTES % 2.6 % (18.0-39.1); MONOCYTES % 3.1 % (4.4-11.3); NEUTROPHILS % 93.4 % (38.7-80.0); RED CELL DISTRIBUTION WIDTH 25.6 % (11.7-14.4)
[2025-01-09 05:41] LABS: EST GLOMERULAR FILTRATION RATE 10.0 ML/MIN (>=60)
[2025-01-09 09:08] LABS: BAND NEUTROPHILS % (MANUAL) 9 %; LYMPHOCYTES % (MANUAL) 2 % (19-48); MONOCYTES % (MANUAL) 2 % (3.4-9.0); NEUTROPHILS % (MANUAL) 87 % (40-74)
[2025-01-09 09:09] LABS: PLATELET ESTIMATE SLIGHTLY INCREASED; PLATELET MORPHOLOGY COMMENT NORMAL; RBC MORPHOLOGY COMMENT ABNORMAL
[2025-01-09] MEDS: MUPIROCIN 2% OINT 22 GM TUBE TOP SCH (09:13)
[2025-01-09] MEDS: SODIUM BICARBONATE 8.4% VIAL 150 ML in DEXTROSE 5% 1,000 ML IV SCH (10:36)
[2025-01-09] MEDS: HYDROCODONE/APAP 5MG-325MG TAB PO PRN (11:58)
[2025-01-09 13:42] LABS: BASOPHILS % 0.1 % (0.0-1.0); EOSINOPHILS % 0.0 % (0.0-6.0); LYMPHOCYTES % 3.1 % (18.0-39.1); MONOCYTES % 2.4 % (4.4-11.3); NEUTROPHILS % 91.9 % (38.7-80.0); RED CELL DISTRIBUTION WIDTH 25.4 % (11.7-14.4)
[2025-01-09 17:13] LABS: BAND NEUTROPHILS % (MANUAL) 26 %; LYMPHOCYTES % (MANUAL) 2 % (19-48); METAMYELOCYTES % (MANUAL) 1 % (0-0); MONOCYTES % (MANUAL) 1 % (3.4-9.0); NEUTROPHILS % (MANUAL) 70 % (40-74)
[2025-01-09 17:14] LABS: PLATELET ESTIMATE ADEQUATE; PLATELET MORPHOLOGY COMMENT NORMAL; RBC MORPHOLOGY COMMENT ABNORMAL
[2025-01-09 17:19] LABS: ELLIPTOCYTE, RBC SLIGHT
[2025-01-09 17:21] LABS: ROULEAU MODERATE
[2025-01-10] VITALS (35 sets, daily range): BP systolic 120–177; BP diastolic 54–81; PULSE 84–103; RESP 12–41; TEMP 98.2–98.7; O2SAT 91–99
[2025-01-10] MEDS ORDERED: SODIUM CHLORIDE 0.9% 500ML 500 ML ONE (08:20)
[2025-01-10] MEDS ORDERED: LIDOCAINE HCL 1% 30ML-PF VIAL ONE (08:20)
[2025-01-10] MEDS ORDERED: HEPARIN SOD (PORCINE) 1000 UNIT/ML SDV ONE (08:32)
[2025-01-10 09:27] LABS: BASOPHILS % 0.1 % (0.0-1.0); EOSINOPHILS % 0.0 % (0.0-6.0); LYMPHOCYTES % 2.7 % (18.0-39.1); MONOCYTES % 2.9 % (4.4-11.3); NEUTROPHILS % 92.8 % (38.7-80.0); RED CELL DISTRIBUTION WIDTH 24.5 % (11.7-14.4)
[2025-01-10] MEDS: MEROPENEM 1 GM in SODIUM CHLORIDE 0.9% 100 ML IV SCH (09:46)
[2025-01-10 09:57] LABS: EST GLOMERULAR FILTRATION RATE 10.0 ML/MIN (>=60)
[2025-01-10 11:13] LABS: LYMPHOCYTES % (MANUAL) 1 % (19-48); MONOCYTES % (MANUAL) 2 % (3.4-9.0); NEUTROPHILS % (MANUAL) 97 % (40-74); PLATELET ESTIMATE ADEQUATE; RBC MORPHOLOGY COMMENT ABNORMAL
[2025-01-10 11:14] LABS: PLATELET MORPHOLOGY COMMENT FEW LARGE
[2025-01-10 11:15] LABS: ELLIPTOCYTE, RBC SLIGHT
[2025-01-10] MEDS: MANNITOL 25% 12.5GM/50ML 100 ML ONE (12:10)
[2025-01-10] MEDS: SODIUM CHLORIDE 0.9% 1000ML 1,000 ML ONE (12:10)
[2025-01-10] MEDS: ALBUMIN 25% 25GM 100ML 0 ML ONE (12:10)
[2025-01-10] MEDS: HEPARIN SOD (PORCINE) 1000 UNIT/ML SDV ONE (12:10)
[2025-01-10] MEDS ORDERED: HEPARIN SOD (PORCINE) 1000 UNIT/ML SDV IV PRN ×2 (13:00→13:15)
[2025-01-10] MEDS ORDERED: SODIUM CHLORIDE 0.9% 1000ML 2,000 ML IV PRN (13:00)
[2025-01-10] MEDS ORDERED: MANNITOL 25% 12.5GM/50 ML VIAL IV PRN (13:00)
[2025-01-10] MEDS ORDERED: ALBUMIN 25% 12.5GM 0.25 GM/ML BTL IV PRN (13:00)
[2025-01-10] MEDS ORDERED: IOPAMIDOL 370 MG/ML 100 ML INFUS..BTL INJ ONE (18:02)
[2025-01-11] VITALS (30 sets, daily range): BP systolic 109–157; BP diastolic 47–68; PULSE 86–98; RESP 12–26; TEMP 97.6–99.9; O2SAT 91–100
[2025-01-11 06:21] LABS: BASOPHILS % 0.0 % (0.0-1.0); EOSINOPHILS % 0.0 % (0.0-6.0); LYMPHOCYTES % 2.8 % (18.0-39.1); MONOCYTES % 3.4 % (4.4-11.3); NEUTROPHILS % 84.9 % (38.7-80.0); RED CELL DISTRIBUTION WIDTH 23.9 % (11.7-14.4)
[2025-01-11 06:36] LABS: HEPATITIS B CORE IGM (P) Negative (Negative); HEPATITIS B SURFACE AB QUANT 22.6 mIU/mL (Immunity>10)
[2025-01-11 06:37] LABS: HEPATITIS B CORE AB TOTAL Positive (Negative)
[2025-01-11 07:25] LABS: EST GLOMERULAR FILTRATION RATE 14.0 ML/MIN (>=60)
[2025-01-11 08:08] LABS: LYMPHOCYTES % (MANUAL) 5 % (19-48); MONOCYTES % (MANUAL) 3 % (3.4-9.0); NEUTROPHILS % (MANUAL) 92 % (40-74)
[2025-01-11 08:09] LABS: PLATELET ESTIMATE ADEQUATE; PLATELET MORPHOLOGY COMMENT NORMAL; RBC MORPHOLOGY COMMENT ABNORMAL
[2025-01-11 12:41] LABS: ABG BASE EXCESS 6.0 mmol/L (-2 - 3); ABG HCO3 30 mmol/L (22-26); ABG OXYGEN SATURATION 95.0 % (95-98); ABG PCO2 43 mmHg (35-45); ABG PH 7.46 (7.35-7.45); ABG PO2 73 mmHg (80-105); ABG TCO2 32
[2025-01-11] MEDS: SODIUM CHLORIDE 0.9% 250ML 250 ML ONE (12:41)
[2025-01-11] MEDS: SODIUM CHLORIDE 0.9% 250ML 250 ML IV ONE (14:11)
[2025-01-11 16:11] LABS: ABG PCO2 38 mmHg (35-45); ABG PH 7.47 (7.35-7.45)
[2025-01-11 16:12] LABS: ABG BASE EXCESS 4.0 mmol/L (-2 - 3); ABG HCO3 28 mmol/L (22-26); ABG OXYGEN SATURATION 98.0 % (95-98); ABG PO2 90 mmHg (80-105); ABG TCO2 29
[2025-01-12] VITALS (33 sets, daily range): BP systolic 129–178; BP diastolic 53–107; PULSE 90–157; RESP 12–27; TEMP 97.6–99.6; O2SAT 88–100
[2025-01-12] MEDS: METOPROLOL TARTRATE INJ 1 MG/ML VIAL IV PRN (02:08)
[2025-01-12 04:56] LABS: ABG BASE EXCESS -7.0 mmol/L (-2 - 3); ABG HCO3 31 mmol/L (22-26); ABG OXYGEN SATURATION 92.0 % (95-98); ABG PCO2 42 mmHg (35-45); ABG PH 7.48 (7.35-7.45); ABG PO2 60 mmHg (80-105); ABG TCO2 32
[2025-01-12 06:46] LABS: BASOPHILS % 0.2 % (0.0-1.0); EOSINOPHILS % 0.0 % (0.0-6.0); LYMPHOCYTES % 2.8 % (18.0-39.1); MONOCYTES % 3.8 % (4.4-11.3); NEUTROPHILS % 92.7 % (38.7-80.0); RED CELL DISTRIBUTION WIDTH 22.9 % (11.7-14.4)
[2025-01-12 07:22] LABS: EST GLOMERULAR FILTRATION RATE 19.0 ML/MIN (>=60)
[2025-01-12 08:38] LABS: LYMPHOCYTES % (MANUAL) 2 % (19-48); NEUTROPHILS % (MANUAL) 98 % (40-74); PLATELET ESTIMATE ADEQUATE; PLATELET MORPHOLOGY COMMENT NORMAL; RBC MORPHOLOGY COMMENT NORMAL
[2025-01-12 09:54] LABS: ABG BASE EXCESS -6.0 mmol/L (-2 - 3); ABG HCO3 20 mmol/L (22-26); ABG OXYGEN SATURATION 90.0 % (95-98); ABG PCO2 33 mmHg (35-45); ABG PH 7.39 (7.35-7.45); ABG PO2 58 mmHg (80-105); ABG TCO2 20
[2025-01-12 11:52] LABS: ABG PCO2 48 mmHg (35-45); ABG PH 7.45 (7.35-7.45)
[2025-01-12 11:54] LABS: ABG BASE EXCESS 9.0 mmol/L (-2 - 3); ABG HCO3 33 mmol/L (22-26); ABG OXYGEN SATURATION 100.0 % (95-98); ABG PO2 244 mmHg (80-105); ABG TCO2 35
[2025-01-12] MEDS: GENTAMICIN SULFATE 300 MG in SODIUM CHLORIDE 0.9% 100 ML IV STA (12:43)
[2025-01-12] MEDS ORDERED: ALBUMIN 25% 12.5GM 0.25 GM/ML BTL IV PRN (14:00)
[2025-01-13] VITALS (75 sets, daily range): BP systolic 102–179; BP diastolic 43–108; PULSE 84–157; RESP 11–46; TEMP 98.3–98.9; O2SAT 89–100
[2025-01-13 07:56] LABS: BASOPHILS % 0.1 % (0.0-1.0); EOSINOPHILS % 0.1 % (0.0-6.0); LYMPHOCYTES % 3.2 % (18.0-39.1); MONOCYTES % 4.1 % (4.4-11.3); NEUTROPHILS % 91.3 % (38.7-80.0); RED CELL DISTRIBUTION WIDTH 23.0 % (11.7-14.4)
[2025-01-13 08:17] LABS: EST GLOMERULAR FILTRATION RATE 29.0 ML/MIN (>=60)
[2025-01-13] MEDS: METOPROLOL TARTRATE INJ 1 MG/ML VIAL IV SCH (09:05)
[2025-01-13] MEDS: AMIODARONE HCL 150 MG/100 ML BAG IV ONE (09:18)
[2025-01-13] MEDS: AMIODARONE 900MG 500 ML IV SCH (09:24)
[2025-01-13] MEDS: AMIODARONE 900MG 500 ML IV ONE (09:27)
[2025-01-13 09:50] LABS: EOSINOPHILS % (MANUAL) 1 % (0-7); LYMPHOCYTES % (MANUAL) 2 % (19-48); MONOCYTES % (MANUAL) 1 % (3.4-9.0); NEUTROPHILS % (MANUAL) 96 % (40-74); PLATELET ESTIMATE ADEQUATE; PLATELET MORPHOLOGY COMMENT NORMAL; RBC MORPHOLOGY COMMENT NORMAL
[2025-01-13] MEDS: DIGOXIN INJ 0.25 MG/ML 2 ML AMP IV ONE (13:54)
[2025-01-13 15:44] LABS: ABG BASE EXCESS 4.0 mmol/L (-2 - 3); ABG HCO3 27 mmol/L (22-26); ABG OXYGEN SATURATION 91.0 % (95-98); ABG PCO2 37 mmHg (35-45); ABG PH 7.48 (7.35-7.45); ABG PO2 58 mmHg (80-105); ABG TCO2 28
[2025-01-13] MEDS: Morphine 2mg Syringe 2 MG/ML SYR IV PRN (17:20)
[2025-01-14] VITALS (37 sets, daily range): BP systolic 116–155; BP diastolic 47–71; PULSE 90–121; RESP 14–49; TEMP 98.1–100; O2SAT 95–100
[2025-01-14 06:17] LABS: BASOPHILS % 0.2 % (0.0-1.0); EOSINOPHILS % 0.3 % (0.0-6.0); LYMPHOCYTES % 5.2 % (18.0-39.1); MONOCYTES % 6.2 % (4.4-11.3); NEUTROPHILS % 81.7 % (38.7-80.0); RED CELL DISTRIBUTION WIDTH 22.6 % (11.7-14.4)
[2025-01-14 06:20] LABS: HEPATITIS B SURFACE AG (P) Negative (Negative)
[2025-01-14 06:30] LABS: EST GLOMERULAR FILTRATION RATE 28.0 ML/MIN (>=60)
[2025-01-14] MEDS: CEFTRIAXONE 2 GM in SODIUM CHLORIDE 0.9% 100 ML IV SCH (08:57)
[2025-01-14 11:28] LABS: BAND NEUTROPHILS % (MANUAL) 1 %; LYMPHOCYTES % (MANUAL) 11 % (19-48); METAMYELOCYTES % (MANUAL) 1 % (0-0); MONOCYTES % (MANUAL) 4 % (3.4-9.0); MYELOCYTES % (MANUAL) 1 % (0-0); NEUTROPHILS % (MANUAL) 82 % (40-74); PLATELET ESTIMATE ADEQUATE; PLATELET MORPHOLOGY COMMENT NORMAL
[2025-01-15] VITALS (30 sets, daily range): BP systolic 111–165; BP diastolic 48–84; PULSE 87–120; RESP 13–53; TEMP 98.2–99.2; O2SAT 96–100
[2025-01-15 06:56] LABS: BASOPHILS % 0.2 % (0.0-1.0); EOSINOPHILS % 0.4 % (0.0-6.0); LYMPHOCYTES % 6.4 % (18.0-39.1); MONOCYTES % 10.2 % (4.4-11.3); NEUTROPHILS % 73.6 % (38.7-80.0); RED CELL DISTRIBUTION WIDTH 22.4 % (11.7-14.4)
[2025-01-15] MEDS: AMIODARONE 900MG 500 ML IV ONE (07:44)
[2025-01-15] MEDS: AMIODARONE 900MG 900 MG in Premix Bag 1 BAG IV SCH (07:44)
[2025-01-15 09:01] LABS: EST GLOMERULAR FILTRATION RATE 28.0 ML/MIN (>=60)
[2025-01-15 11:04] LABS: LYMPHOCYTES % (MANUAL) 14 % (19-48); MONOCYTES % (MANUAL) 8 % (3.4-9.0); NEUTROPHILS % (MANUAL) 78 % (40-74); PLATELET ESTIMATE ADEQUATE; PLATELET MORPHOLOGY COMMENT NORMAL
[2025-01-15] MEDS ORDERED: AMIODARONE 900MG 500 ML IV SCH (17:00)
[2025-01-16] VITALS (42 sets, daily range): BP systolic 116–137; BP diastolic 47–71; PULSE 87–126; RESP 13–38; TEMP 98–99.1; O2SAT 93–100
[2025-01-16 05:41] LABS: BASOPHILS % 0.3 % (0.0-1.0); EOSINOPHILS % 0.5 % (0.0-6.0); LYMPHOCYTES % 5.5 % (18.0-39.1); MONOCYTES % 9.1 % (4.4-11.3); NEUTROPHILS % 76.2 % (38.7-80.0); RED CELL DISTRIBUTION WIDTH 22.4 % (11.7-14.4)
[2025-01-16 06:10] LABS: EST GLOMERULAR FILTRATION RATE 29.0 ML/MIN (>=60)
[2025-01-16 07:38] LABS: BAND NEUTROPHILS % (MANUAL) 4 %; LYMPHOCYTES % (MANUAL) 3 % (19-48); MONOCYTES % (MANUAL) 3 % (3.4-9.0); NEUTROPHILS % (MANUAL) 90 % (40-74); PLATELET ESTIMATE MODERATELY DECREASED
[2025-01-16 07:39] LABS: PLATELET MORPHOLOGY COMMENT FEW LARGE
[2025-01-16] MEDS: HEPARIN SOD (PORCINE) 1000 UNIT/ML SDV ONE (12:27)
[2025-01-16] MEDS: SODIUM CHLORIDE 0.9% 250ML 250 ML ONE (12:27)
[2025-01-16] MEDS: SODIUM CHLORIDE 0.9% 1000ML 1,000 ML ONE (12:34)
[2025-01-16] MEDS: METOPROLOL TARTRATE 50 MG TAB PO SCH (15:57)
[2025-01-16] MEDS: AMIODARONE HCL 200 MG TAB PO SCH (15:58)
[2025-01-16] MEDS: CENTRAL TPN FORMULA 1 BAG IV SCH (20:31)
[2025-01-17] VITALS (10 sets, daily range): BP systolic 120–149; BP diastolic 46–63; PULSE 66–98; RESP 14–21; TEMP 97.8–98.8; O2SAT 95–100
[2025-01-17 07:12] LABS: BASOPHILS % 0.1 % (0.0-1.0); EOSINOPHILS % 0.6 % (0.0-6.0); LYMPHOCYTES % 4.0 % (18.0-39.1); MONOCYTES % 6.1 % (4.4-11.3); NEUTROPHILS % 82.4 % (38.7-80.0); RED CELL DISTRIBUTION WIDTH 22.4 % (11.7-14.4)
[2025-01-17 08:06] LABS: EST GLOMERULAR FILTRATION RATE 34.0 ML/MIN (>=60)
[2025-01-17 10:40] LABS: EOSINOPHILS % (MANUAL) 1 % (0-7); LYMPHOCYTES % (MANUAL) 4 % (19-48); MONOCYTES % (MANUAL) 4 % (3.4-9.0); MYELOCYTES % (MANUAL) 2 % (0-0); NEUTROPHILS % (MANUAL) 89 % (40-74)
[2025-01-17 10:41] LABS: PLATELET ESTIMATE ADEQUATE; PLATELET MORPHOLOGY COMMENT FEW LARGE; RBC MORPHOLOGY COMMENT ABNORMAL
[2025-01-17 14:11] LABS: cANCA TITER <1:20 titer (Neg:<1:20)
[2025-01-17] MEDS ORDERED: IOPAMIDOL 370 MG/ML 100 ML INFUS..BTL INJ ONE (14:58)
[2025-01-17] MEDS ORDERED: SODIUM CHLORIDE 0.9% 500ML 500 ML ONE (14:58)
[2025-01-17 15:46] LABS: ATYPICAL pANCA TITER <1:20 titer (Neg:<1:20); pANCA TITER <1:20 titer (Neg:<1:20)
[2025-01-17] MEDS: CENTRAL TPN FORMULA 1 BAG IV SCH (19:43)
[2025-01-18] VITALS (31 sets, daily range): BP systolic 109–160; BP diastolic 50–87; PULSE 83–110; RESP 13–44; TEMP 97.9–98.6; O2SAT 95–100
[2025-01-18 07:01] LABS: BASOPHILS % 0.2 % (0.0-1.0); EOSINOPHILS % 0.5 % (0.0-6.0); LYMPHOCYTES % 4.4 % (18.0-39.1); MONOCYTES % 5.9 % (4.4-11.3); NEUTROPHILS % 84.2 % (38.7-80.0); RED CELL DISTRIBUTION WIDTH 22.9 % (11.7-14.4)
[2025-01-18 07:28] LABS: EST GLOMERULAR FILTRATION RATE 30.0 ML/MIN (>=60)
[2025-01-18 07:45] LABS: PHOSPHORUS 2.4 MG/DL (2.3-4.7)
[2025-01-18 07:59] LABS: ABG BASE EXCESS 6.0 mmol/L (-2 - 3); ABG HCO3 30 mmol/L (22-26); ABG OXYGEN SATURATION 95.0 % (95-98); ABG PCO2 43 mmHg (35-45); ABG PH 7.46 (7.35-7.45); ABG PO2 73 mmHg (80-105); ABG TCO2 32
[2025-01-18 07:59] LABS: ABG BASE EXCESS 4.0 mmol/L (-2 - 3); ABG HCO3 28 mmol/L (22-26); ABG OXYGEN SATURATION 98.0 % (95-98); ABG PCO2 38 mmHg (35-45); ABG PH 7.47 (7.35-7.45); ABG PO2 90 mmHg (80-105); ABG TCO2 29
[2025-01-18 07:59] LABS: ABG BASE EXCESS 4.0 mmol/L (-2 - 3); ABG HCO3 27 mmol/L (22-26); ABG OXYGEN SATURATION 91.0 % (95-98); ABG PCO2 37 mmHg (35-45); ABG PH 7.48 (7.35-7.45); ABG PO2 58 mmHg (80-105); ABG TCO2 28
[2025-01-18 07:59] LABS: ABG BASE EXCESS 7.0 mmol/L (-2 - 3); ABG HCO3 31 mmol/L (22-26); ABG OXYGEN SATURATION 92.0 % (95-98); ABG PCO2 42 mmHg (35-45); ABG PH 7.48 (7.35-7.45); ABG PO2 60 mmHg (80-105); ABG TCO2 32
[2025-01-18 07:59] LABS: ABG BASE EXCESS 9.0 mmol/L (-2 - 3); ABG HCO3 33 mmol/L (22-26); ABG OXYGEN SATURATION 100.0 % (95-98); ABG PCO2 48 mmHg (35-45); ABG PH 7.45 (7.35-7.45); ABG PO2 244 mmHg (80-105); ABG TCO2 35
[2025-01-18 08:50] LABS: EOSINOPHILS % (MANUAL) 1 % (0-7); LYMPHOCYTES % (MANUAL) 7 % (19-48); MONOCYTES % (MANUAL) 3 % (3.4-9.0); NEUTROPHILS % (MANUAL) 89 % (40-74)
[2025-01-18 08:51] LABS: PLATELET ESTIMATE ADEQUATE; PLATELET MORPHOLOGY COMMENT NORMAL; RBC MORPHOLOGY COMMENT ABNORMAL
[2025-01-18] MEDS ORDERED: HEPARIN SOD (PORCINE) 1000 UNIT/ML SDV IV PRN (14:15)
[2025-01-18] MEDS ORDERED: SODIUM CHLORIDE 0.9% 1000ML 2,000 ML IV PRN (14:15)
[2025-01-18] MEDS: INSULIN LISPRO 100 UNIT/1 ML 3ML VIAL SQ SCH (16:54)
[2025-01-18] MEDS: CENTRAL TPN FORMULA 1 BAG IV SCH (20:18)
[2025-01-19] VITALS (62 sets, daily range): BP systolic 69–149; BP diastolic 43–118; PULSE 80–115; RESP 11–40; TEMP 97.5–98.3; O2SAT 83–100
[2025-01-19 08:00] LABS: BASOPHILS % 0.2 % (0.0-1.0); EOSINOPHILS % 0.5 % (0.0-6.0); LYMPHOCYTES % 5.2 % (18.0-39.1); MONOCYTES % 6.5 % (4.4-11.3); NEUTROPHILS % 84.7 % (38.7-80.0); RED CELL DISTRIBUTION WIDTH 22.9 % (11.7-14.4)
[2025-01-19 08:38] LABS: EST GLOMERULAR FILTRATION RATE 27.0 ML/MIN (>=60)
[2025-01-19] MEDS: CENTRAL TPN FORMULA 1 BAG IV SCH (19:48)
[2025-01-20] VITALS (22 sets, daily range): BP systolic 106–145; BP diastolic 49–110; PULSE 70–88; RESP 13–24; TEMP 98–98.8; O2SAT 97–100
[2025-01-20 06:44] LABS: BASOPHILS % 0.3 % (0.0-1.0); EOSINOPHILS % 1.0 % (0.0-6.0); LYMPHOCYTES % 4.6 % (18.0-39.1); MONOCYTES % 6.1 % (4.4-11.3); NEUTROPHILS % 84.8 % (38.7-80.0); RED CELL DISTRIBUTION WIDTH 22.5 % (11.7-14.4)
[2025-01-20 07:35] LABS: EST GLOMERULAR FILTRATION RATE 31.0 ML/MIN (>=60); PHOSPHORUS 2.8 MG/DL (2.3-4.7)
[2025-01-20 09:23] LABS: BAND NEUTROPHILS % (MANUAL) 1 %; EOSINOPHILS % (MANUAL) 1 % (0-7); LYMPHOCYTES % (MANUAL) 5 % (19-48); MONOCYTES % (MANUAL) 6 % (3.4-9.0); NEUTROPHILS % (MANUAL) 86 % (40-74); NUCLEATED RED BLOOD CELLS 1; REACTIVE LYMPHOCYTES 1
[2025-01-20 09:24] LABS: PLATELET ESTIMATE ADEQUATE; PLATELET MORPHOLOGY COMMENT NORMAL; RBC MORPHOLOGY COMMENT ABNORMAL
[2025-01-20] MEDS: CENTRAL TPN FORMULA 1 BAG IV SCH (21:02)
[2025-01-21] VITALS (10 sets, daily range): BP systolic 132–153; BP diastolic 46–70; PULSE 78–87; RESP 18–22; TEMP 98.1–99.3; O2SAT 95–100
[2025-01-21 06:20] LABS: BASOPHILS % 0.2 % (0.0-1.0); EOSINOPHILS % 1.0 % (0.0-6.0); LYMPHOCYTES % 7.2 % (18.0-39.1); MONOCYTES % 7.8 % (4.4-11.3); NEUTROPHILS % 82.3 % (38.7-80.0); RED CELL DISTRIBUTION WIDTH 22.8 % (11.7-14.4)
[2025-01-21 06:48] LABS: EST GLOMERULAR FILTRATION RATE 32.0 ML/MIN (>=60); PHOSPHORUS 1.7 MG/DL (2.3-4.7)
[2025-01-21] MEDS: CHLORASEPTIC SPRAY 177 ML BTL MM PRN (15:08)
[2025-01-22] VITALS (12 sets, daily range): BP systolic 135–164; BP diastolic 50–59; PULSE 76–87; RESP 18–22; TEMP 98.1–99.4; O2SAT 96–100
[2025-01-22 08:03] LABS: BASOPHILS % 0.3 % (0.0-1.0); EOSINOPHILS % 1.2 % (0.0-6.0); LYMPHOCYTES % 9.1 % (18.0-39.1); MONOCYTES % 7.4 % (4.4-11.3); NEUTROPHILS % 79.7 % (38.7-80.0); RED CELL DISTRIBUTION WIDTH 22.5 % (11.7-14.4)
[2025-01-22 08:41] LABS: EST GLOMERULAR FILTRATION RATE 28.0 ML/MIN (>=60)
[2025-01-23] VITALS (11 sets, daily range): BP systolic 106–152; BP diastolic 44–59; PULSE 76–85; RESP 0–22; TEMP 97.6–99.2; O2SAT 96–100
[2025-01-23 07:53] LABS: BASOPHILS % 0.5 % (0.0-1.0); EOSINOPHILS % 1.8 % (0.0-6.0); LYMPHOCYTES % 10.0 % (18.0-39.1); MONOCYTES % 9.0 % (4.4-11.3); NEUTROPHILS % 76.6 % (38.7-80.0); RED CELL DISTRIBUTION WIDTH 23.0 % (11.7-14.4)
[2025-01-23 08:18] LABS: EST GLOMERULAR FILTRATION RATE 31.0 ML/MIN (>=60)
[2025-01-23] MEDS ORDERED: SODIUM CHLORIDE 0.9% 1000ML 2,000 ML IV PRN (09:00)
[2025-01-23] MEDS ORDERED: HEPARIN SOD (PORCINE) 1000 UNIT/ML SDV IV PRN (09:00)
[2025-01-23] MEDS ORDERED: ALBUMIN 25% 12.5GM 0.25 GM/ML BTL IV PRN (09:00)
[2025-01-23] MEDS: CENTRAL TPN FORMULA 1 BAG IV SCH (20:23)
[2025-01-23] MEDS: AMIODARONE HCL 200 MG TAB PO SCH (20:57)
[2025-01-23] MEDS: ACETAMINOPHEN 325 MG TAB PO PRN (23:22)
[2025-01-24] VITALS (11 sets, daily range): BP systolic 123–147; BP diastolic 53–60; PULSE 74–92; RESP 18–23; TEMP 97.9–100; O2SAT 95–100
[2025-01-24 06:55] LABS: EST GLOMERULAR FILTRATION RATE 32.0 ML/MIN (>=60)
[2025-01-24 07:05] LABS: BASOPHILS % 0.5 % (0.0-1.0); EOSINOPHILS % 1.5 % (0.0-6.0); LYMPHOCYTES % 13.6 % (18.0-39.1); MONOCYTES % 11.7 % (4.4-11.3); NEUTROPHILS % 70.2 % (38.7-80.0); RED CELL DISTRIBUTION WIDTH 23.0 % (11.7-14.4)
[2025-01-24] MEDS: NYSTATIN 100,000 UNITS/GM CRM 30GM TUBE TOP SCH (17:00)
[2025-01-25] VITALS (10 sets, daily range): BP systolic 115–137; BP diastolic 46–72; PULSE 72–98; RESP 16–22; TEMP 97.4–99.1; O2SAT 96–100
[2025-01-25 06:27] LABS: BASOPHILS % 0.5 % (0.0-1.0); EOSINOPHILS % 1.2 % (0.0-6.0); LYMPHOCYTES % 15.8 % (18.0-39.1); MONOCYTES % 12.5 % (4.4-11.3); NEUTROPHILS % 66.9 % (38.7-80.0); RED CELL DISTRIBUTION WIDTH 22.7 % (11.7-14.4)
[2025-01-25 07:15] LABS: EST GLOMERULAR FILTRATION RATE 28.0 ML/MIN (>=60)
[2025-01-25 07:43] LABS: BAND NEUTROPHILS % (MANUAL) 1 %; EOSINOPHILS % (MANUAL) 2 % (0-7); LYMPHOCYTES % (MANUAL) 16 % (19-48); MONOCYTES % (MANUAL) 10 % (3.4-9.0); NEUTROPHILS % (MANUAL) 71 % (40-74)
[2025-01-25 07:46] LABS: PLATELET ESTIMATE ADEQUATE; PLATELET MORPHOLOGY COMMENT FEW LARGE
[2025-01-25] MEDS ORDERED: HEPARIN SOD (PORCINE) 1000 UNIT/ML SDV IV PRN (09:45)
[2025-01-25] MEDS ORDERED: ALBUMIN 25% 12.5GM 0.25 GM/ML BTL IV PRN (09:45)
[2025-01-25] MEDS ORDERED: SODIUM CHLORIDE 0.9% 1000ML 2,000 ML IV PRN (09:45)
[2025-01-25 15:45] LABS: INR 0.95
[2025-01-25] MEDS: SODIUM CHLORIDE 0.9% 250ML 250 ML IV ONE (19:39)
[2025-01-26] VITALS (12 sets, daily range): BP systolic 114–139; BP diastolic 49–71; PULSE 74–94; RESP 18–20; TEMP 98.1–98.8; O2SAT 95–100
[2025-01-26 06:29] LABS: BASOPHILS % 0.6 % (0.0-1.0); EOSINOPHILS % 1.2 % (0.0-6.0); LYMPHOCYTES % 16.0 % (18.0-39.1); MONOCYTES % 11.1 % (4.4-11.3); NEUTROPHILS % 67.4 % (38.7-80.0); RED CELL DISTRIBUTION WIDTH 21.2 % (11.7-14.4)
[2025-01-26 06:58] LABS: EST GLOMERULAR FILTRATION RATE 30.0 ML/MIN (>=60)
[2025-01-26] MEDS ORDERED: SODIUM CHLORIDE 0.9% 500ML 500 ML ONE (15:22)
[2025-01-26] MEDS ORDERED: LIDOCAINE HCL 1% 30ML-PF VIAL ONE (15:22)
[2025-01-26] MEDS ORDERED: HEPARIN SOD (PORCINE) 1000 UNIT/ML SDV ONE (16:20)
[2025-01-26] MEDS ORDERED: FENTANYL CITRATE/PF 100MCG/2 ML INJ ONE (16:20)
[2025-01-26] MEDS ORDERED: SODIUM CHLORIDE 0.9% 250ML 250 ML ONE (16:21)
[2025-01-27] VITALS (11 sets, daily range): BP systolic 104–153; BP diastolic 50–82; PULSE 74–89; RESP 16–21; TEMP 97.3–98.6; O2SAT 97–100
[2025-01-27 07:32] LABS: BASOPHILS % 0.4 % (0.0-1.0); EOSINOPHILS % 1.3 % (0.0-6.0); LYMPHOCYTES % 12.0 % (18.0-39.1); MONOCYTES % 8.6 % (4.4-11.3); NEUTROPHILS % 75.6 % (38.7-80.0); RED CELL DISTRIBUTION WIDTH 21.2 % (11.7-14.4)
[2025-01-27 07:55] LABS: EST GLOMERULAR FILTRATION RATE 28.0 ML/MIN (>=60)
[2025-01-27] MEDS: METOPROLOL TARTRATE 50 MG TAB PO SCH (09:14)
[2025-01-28] VITALS (11 sets, daily range): BP systolic 117–159; BP diastolic 50–69; PULSE 74–80; RESP 17–21; TEMP 97.9–98.7; O2SAT 96–100
[2025-01-29] VITALS (11 sets, daily range): BP systolic 115–154; BP diastolic 48–70; PULSE 65–78; RESP 18–22; TEMP 98–98.6; O2SAT 95–100
[2025-01-29 05:55] LABS: BASOPHILS % 0.7 % (0.0-1.0); EOSINOPHILS % 1.9 % (0.0-6.0); LYMPHOCYTES % 17.9 % (18.0-39.1); MONOCYTES % 10.4 % (4.4-11.3); NEUTROPHILS % 63.7 % (38.7-80.0); RED CELL DISTRIBUTION WIDTH 21.3 % (11.7-14.4)
[2025-01-29 06:24] LABS: EST GLOMERULAR FILTRATION RATE 20.0 ML/MIN (>=60)
[2025-01-29 10:48] LABS: BAND NEUTROPHILS % (MANUAL) 2 %; EOSINOPHILS % (MANUAL) 1 % (0-7); LYMPHOCYTES % (MANUAL) 17 % (19-48); METAMYELOCYTES % (MANUAL) 2 % (0-0); MONOCYTES % (MANUAL) 9 % (3.4-9.0); NEUTROPHILS % (MANUAL) 69 % (40-74); PLATELET ESTIMATE ADEQUATE; PLATELET MORPHOLOGY COMMENT NORMAL
[2025-01-30] VITALS (12 sets, daily range): BP systolic 109–150; BP diastolic 46–69; PULSE 71–88; RESP 18–20; TEMP 98–98.7; O2SAT 97–100
[2025-01-31] VITALS (8 sets, daily range): BP systolic 123–153; BP diastolic 56–62; PULSE 70–76; RESP 17–20; TEMP 97.6–98.3; O2SAT 94–100
[2025-01-31 06:01] LABS: BASOPHILS % 0.9 % (0.0-1.0); EOSINOPHILS % 2.7 % (0.0-6.0); LYMPHOCYTES % 14.4 % (18.0-39.1); MONOCYTES % 8.5 % (4.4-11.3); NEUTROPHILS % 66.1 % (38.7-80.0); RED CELL DISTRIBUTION WIDTH 21.3 % (11.7-14.4)
[2025-01-31 06:25] LABS: EST GLOMERULAR FILTRATION RATE 29.0 ML/MIN (>=60)
[2025-01-31 08:44] LABS: EOSINOPHILS % (MANUAL) 6 % (0-7); LYMPHOCYTES % (MANUAL) 12 % (19-48); METAMYELOCYTES % (MANUAL) 1 % (0-0); MONOCYTES % (MANUAL) 2 % (3.4-9.0); MYELOCYTES % (MANUAL) 3 % (0-0); NEUTROPHILS % (MANUAL) 74 % (40-74); PLATELET ESTIMATE ADEQUATE; PLATELET MORPHOLOGY COMMENT NORMAL; RBC MORPHOLOGY COMMENT NORMAL; REACTIVE LYMPHOCYTES 2
== END 2025-01-31 19:00 | DRG 871 ==
LOC: ER 13:20 → ERHOLD 16:06 → MED/SURG2 16:49 → ICU 01-08 23:48 → MED/SURG3 01-20 14:27 → MED/SURG2 01-30 16:18
PROVIDERS: ADMIT Internal Medicine; ATTEND Internal Medicine
PROC: 0J9R3ZZ Drainage of Left Foot Subcutaneous Tissue and Fascia, Percutaneous Approach (ICD-10-PCS; 2025-01-04)
PROC: 4A133R1 Monitoring of Arterial Saturation, Peripheral, Percutaneous Approach (ICD-10-PCS; 2025-01-08)
PROC: 30233N1 Transfusion of Nonautologous Red Blood Cells into Peripheral Vein, Percutaneous Approach (ICD-10-PCS; 2025-01-09)
PROC: 0T9B70Z Drainage of Bladder with Drainage Device, Via Natural or Artificial Opening (ICD-10-PCS; 2025-01-09)
PROC: 02HV33Z Insertion of Infusion Device into Superior Vena Cava, Percutaneous Approach (ICD-10-PCS; 2025-01-10)
PROC: 5A09357 Assistance with Respiratory Ventilation, Less than 24 Consecutive Hours, Continuous Positive Airway Pressure (ICD-10-PCS; 2025-01-10)
PROC: 5A0945A Assistance with Respiratory Ventilation, 24-96 Consecutive Hours, High Flow/Velocity Cannula (ICD-10-PCS; 2025-01-11)
PROC: 02HV33Z Insertion of Infusion Device into Superior Vena Cava, Percutaneous Approach (ICD-10-PCS; 2025-01-15)
PROC: 3E0336Z Introduction of Nutritional Substance into Peripheral Vein, Percutaneous Approach (ICD-10-PCS; 2025-01-16)
PROC: 5A1D70Z Performance of Urinary Filtration, Intermittent, Less than 6 Hours Per Day (ICD-10-PCS; 2025-01-16)
PROC: 0JH63XZ Insertion of Tunneled Vascular Access Device into Chest Subcutaneous Tissue and Fascia, Percutaneous Approach (ICD-10-PCS; principal; 2025-01-26)
PROC: 02H633Z Insertion of Infusion Device into Right Atrium, Percutaneous Approach (ICD-10-PCS; 2025-01-26)
DX: A41.52 Sepsis due to Pseudomonas (principal); E43 Unspecified severe protein-calorie malnutrition; J69.0 Pneumonitis due to inhalation of food and vomit; J96.01 Acute respiratory failure with hypoxia; N18.6 End stage renal disease; L03.116 Cellulitis of left lower limb; I13.2 Hypertensive heart and chronic kidney disease with heart failure and with stage 5 chronic kidney disease, or end stage renal disease; E87.20 Acidosis, unspecified; N17.9 Acute kidney failure, unspecified; R04.2 Hemoptysis; E87.1 Hypo-osmolality and hyponatremia; I50.32 Chronic diastolic (congestive) heart failure; Z16.11 Resistance to penicillins; E11.22 Type 2 diabetes mellitus with diabetic chronic kidney disease; L89.312 Pressure ulcer of right buttock, stage 2; L89.322 Pressure ulcer of left buttock, stage 2; L89.152 Pressure ulcer of sacral region, stage 2; D69.6 Thrombocytopenia, unspecified; D63.1 Anemia in chronic kidney disease; B96.1 Klebsiella pneumoniae [K. pneumoniae] as the cause of diseases classified elsewhere; R13.12 Dysphagia, oropharyngeal phase; Z99.2 Dependence on renal dialysis; E11.40 Type 2 diabetes mellitus with diabetic neuropathy, unspecified; I48.91 Unspecified atrial fibrillation; E87.5 Hyperkalemia; E87.6 Hypokalemia; E78.5 Hyperlipidemia, unspecified; R53.81 Other malaise; E87.70 Fluid overload, unspecified; K21.9 Gastro-esophageal reflux disease without esophagitis; D50.9 Iron deficiency anemia, unspecified; S80.12XA Contusion of left lower leg, initial encounter; R26.2 Difficulty in walking, not elsewhere classified; K59.00 Constipation, unspecified; R32 Unspecified urinary incontinence; M10.9 Gout, unspecified; W18.30XA Fall on same level, unspecified, initial encounter; E66.9 Obesity, unspecified; Z68.31 Body mass index [BMI] 31.0-31.9, adult; Z79.01 Long term (current) use of anticoagulants; Z79.84 Long term (current) use of oral hypoglycemic drugs; Z79.82 Long term (current) use of aspirin; Z95.5 Presence of coronary angioplasty implant and graft; Z86.73 Personal history of transient ischemic attack (TIA), and cerebral infarction without residual deficits; Z82.49 Family history of ischemic heart disease and other diseases of the circulatory system
CPT/HCPCS: 10160; 36415; 36556; 36558; 36568; 36600; 71045; 71046; 71250; 72194; 74018; 74177; 74230; 74470; 76770; 76882; 76937; 76942; 77001; 80048; 80053; 80202; 81001; 82570; 82607; 82746; 82805; 82948; 83540; 83735; 84100; 84132; 84156; 84466; 85025; 85610; 85730; 86021; 86704; 86705; 86706; 86850; 86900; 86920; 87040; 87070; 87071; 87186; 87205; 87340; 93005; 93971; 94640; 94660; 94799; 96372; 99252; 99284; C1752; C1769; C1892; J0612; J0690; J0692; J0696; J1160; J1580; J1644; J1756; J1938; J2003; J2020; J2150; J2185; J2270; J2470; J2543; J2919; J7030; J7040; J7050; J7070; J7799; P9016; P9047; Q9967